=== PATIENT | female | born 1995 | race Caucasian/White ===

== ENCOUNTER 2020-02-01 08:46 | Emergency (ER) | payer OTHER, SELFPAY ==
--- NOTE | 2020-02-01 08:56 | ED_ITS ---
HPI - Nausea/Vomiting/Diarrhea General Chief complaint: General Medical Stated complaint: chills,cough,body aches, NO FEVER Time Seen by Provider: 02/01/20 08:55 Source: patient and EMS Mode of arrival: EMS Limitations: no limitations History of Present Illness MD elicited complaint: nausea, vomiting, abdominal pain and other (chills sore throat, body aches) Onset (ago): day(s) (2) Description of vomiting: food contents Associated nausea: Yes Associated abdominal pain: Yes Location of pain: diffuse Radiation: diffuse Pain consistency: constant Severity: moderate Quality: cramping Exacerbating factors: none Relieving factors: none Context: sick contacts Associated symptoms: myalgias, fever/chills, loss of appetite, malaise, nausea/vomiting and weakness Related Data Previous Rx's Medication Instructions Recorded ondansetron 4 mg PO Q8H PRN #20 tab 02/01/20 Allergies Allergy/AdvReac Type Severity Reaction Status Date / Time No Known Allergies Allergy Unverified 11/10/19 16:17 [No Known Allergies*] Review of Systems Review of Systems: Constitutional : No Weight loss, No Fever, pos Chills ENT/Mouth : No sore throat, No Rhinorrhea Eyes: No Swelling, No Redness Cardiovascular : No Chest Pain, No SOB, NoEdema Respiratory : pos Cough, No Sputum, No Wheezing Gastrointestinal : Positive Nausea, Positive Vomiting, no Diarrhea, positive abdominal Pain, No Hematochezia, No Melena Genitourinary : No Dysuria, No Urinary Frequency, No Hematuria, No Urgency Musculoskeletal : No joint pain, pos Myalgias, No Joint Swelling Skin : No Skin Lesions, No rash Neuro : No Weakness, No Numbness, No Dizziness, No Headache Psych : No Anxiety/Panic, No Depression Heme/Lymph: No Bruising, No Lymphadenopathy Endocrine : No Polyuria, No Polydipsia All other systems reviewed and are negative. Gastrointestinal: Gastrointestinal: Reports nausea PMFSH Past Medical History Attestation statement: The following information was validated with the patient. Medical History (Updated 02/01/20 @ 12:00 by Toma Moffett DO) No active medical problems Social History Social History (Updated 02/01/20 @ 09:07 by Toma Moffett DO) Alcohol intake: current Smoking Status: Current every day smoker Smoked in Last 30 Days: No Use of substances other than those prescribed or required for medical reasons: Yes Substance Use Type: Marijuana Substance Use Frequency: Occasionally Advance Directives: No Advance Directives Information Provided: No Physical Exam Vital Signs: Vital Signs: Last Vital Signs Temp 97.7 F 02/01/20 09:08 Pulse 75 02/01/20 11:45 Resp 16 02/01/20 09:08 BP 103/66 02/01/20 11:45 Pulse Ox 100 02/01/20 11:45 Body Mass Index 32.0 Appearance: Alert. Oriented X3. No acute distress. Eyes: Pupils equal, round and reactive to light. ENT: Pharynx normal. Neck: Normal inspection. Neck supple. CVS: Normal heart rate and rhythm. Pulses normal. Respiratory: No respiratory distress. Breath sounds normal. Abdomen: Soft and diffuse mild ttp Skin: Skin warm and dry. Normal skin color. Normal skin turgor. Extremities: No lower extremity edema. No calf ttp Neuro: Oriented X 3. No motor deficit. No sensory deficit. Course Course Course Narrative: no hypoxia, no distress, not toxic, can be managed as outpatient tolerating PO MDM - Nausea/Vomiting/Diarrhea MDM Narrative Medical decision making narrative: 24 yo female work at [employer] here with diffuse body aches, abdominal cramping, cough, URI symptoms, chills - concerning for viral syndrome, has no localized pain to suggest GB or appendicitis, at this time will obtain labs, UA, COVID test and provide supportive care, anticipate DC home if workup negative Lab Data Result diagrams: 02/01/20 10:19 02/01/20 10:19 Labs: Lab Results 02/01/20 02/01/20 02/01/20 Range/Units 10:19 10:19 10:19 WBC 7.1 (4.8-10.8) X10*3/uL RBC 4.40 (4.20-5.50) X10*6/uL Hgb 13.6 (12.0-16.0) g/dl Hct 41.5 (37-47) % MCV 94.3 (80-98) fL MCH 30.9 (27.0-33.0) pg MCHC 32.8 (31.0-35.0) g/dl RDW 12.6 (11.0-16.0) % Plt Count 169 (160-400) X10*3/uL MPV 12.3 (9.4-12.3) fL Immature Gran % (Auto) 0.4 (0.0-0.4) % Neut % (Auto) 84.4 H (45-73) % Lymph % (Auto) 11.9 L (20-40) % [place] % (Auto) 2.9 (2-11) % Eos % (Auto) 0.1 (0-4) % Baso % (Auto) 0.3 (0-2) % Lymph # (Auto) 0.9 L (1.2-4.9) X10*3/uL [place] # (Auto) 0.2 (0.1-1.2) X10*3/uL Eos # (Auto) 0.0 (0.0-0.4) X10*3/uL Baso # (Auto) 0.0 (0.0-0.2) X10*3/uL Abs Immat Gran (auto) 0.03 (0.00-0.03) X10*3/uL Absolute Neuts (auto) 6.0 (2.0-8.3) X10*3/uL Absolute Nucleated RBC 0.000 (0.0-0.012) X10*3/uL Nucleated RBC % (auto) 0.0 (0.0-0.2) /100WBC Hold Blue Top SEE NOTE Sodium 139 (135-145) mmol/L Potassium 3.9 (3.3-5.1) mmol/l Chloride 109 H (96-108) mmol/L Carbon Dioxide 22 (22-29) mmol/L Anion Gap 12 (12-20) BUN 10 (9-16) mg/dL Creatinine 0.74 (0.5-1.4) mg/dL Estim Creat Clear Calc 108.0 Estimated GFR > 60 Random Glucose 89 (60-115) mg/dL Calcium 8.3 L (8.4-10.2) mg/dL Magnesium (1.6-2.6) mg/dL Total Bilirubin (0.0-1.0) mg/dL Direct Bilirubin (0.0-0.5) mg/dL AST (5-31) U/L ALT (0-31) U/L Alkaline Phosphatase (39-117) U/L Total Protein (6.5-8.0) g/dL Albumin (3.5-5.0) g/dL Lipase (8-78) U/L Urine Color Urine Appearance Urine pH (5.0-8.0) Ur Specific [place] (1.005-1.025) Urine Protein (NEG-TRACE) MG/DL Urine Glucose (UA) (NEG) MG/DL Urine Ketones (NEG) MG/DL Urine Blood (NEG) Urine Nitrite (NEG) Ur Leukocyte Esterase (NEG) Urine Test (NEGATIVE) Coronavirus (PCR) (Negative) Influenza Type A (PCR) (Negative) Influenza Type B (PCR) (Negative) RSV RNA Qual (PCR) (Negative) 02/01/20 02/01/20 02/01/20 Range/Units 10:19 10:20 12:06 WBC (4.8-10.8) X10*3/uL RBC (4.20-5.50) X10*6/uL Hgb (12.0-16.0) g/dl Hct (37-47) % MCV (80-98) fL MCH (27.0-33.0) pg MCHC (31.0-35.0) g/dl RDW (11.0-16.0) % Plt Count (160-400) X10*3/uL MPV (9.4-12.3) fL Immature Gran % (Auto) (0.0-0.4) % Neut % (Auto) (45-73) % Lymph % (Auto) (20-40) % [place] % (Auto) (2-11) % Eos % (Auto) (0-4) % Baso % (Auto) (0-2) % Lymph # (Auto) (1.2-4.9) X10*3/uL [place] # (Auto) (0.1-1.2) X10*3/uL Eos # (Auto) (0.0-0.4) X10*3/uL Baso # (Auto) (0.0-0.2) X10*3/uL Abs Immat Gran (auto) (0.00-0.03) X10*3/uL Absolute Neuts (auto) (2.0-8.3) X10*3/uL Absolute Nucleated RBC (0.0-0.012) X10*3/uL Nucleated RBC % (auto) (0.0-0.2) /100WBC Hold Blue Top Sodium (135-145) mmol/L Potassium (3.3-5.1) mmol/l Chloride (96-108) mmol/L Carbon Dioxide (22-29) mmol/L Anion Gap (12-20) BUN (9-16) mg/dL Creatinine (0.5-1.4) mg/dL Estim Creat Clear Calc Estimated GFR Random Glucose (60-115) mg/dL Calcium (8.4-10.2) mg/dL Magnesium 1.8 (1.6-2.6) mg/dL Total Bilirubin 0.3 (0.0-1.0) mg/dL Direct Bilirubin 0.2 (0.0-0.5) mg/dL AST 18 (5-31) U/L ALT 17 (0-31) U/L Alkaline Phosphatase 57 (39-117) U/L Total Protein 6.8 (6.5-8.0) g/dL Albumin 4.4 (3.5-5.0) g/dL Lipase 9 (8-78) U/L Urine Color YELLOW Urine Appearance CLEAR Urine pH 8.0 (5.0-8.0) Ur Specific [place] 1.020 (1.005-1.025) Urine Protein NEG (NEG-TRACE) MG/DL Urine Glucose (UA) NEG (NEG) MG/DL Urine Ketones 15 (NEG) MG/DL Urine Blood NEG (NEG) Urine Nitrite NEG (NEG) Ur Leukocyte Esterase NEG (NEG) Urine Test NEGATIVE (NEGATIVE) Coronavirus (PCR) NEGATIVE (Negative) Influenza Type A (PCR) NEGATIVE (Negative) Influenza Type B (PCR) NEGATIVE (Negative) RSV RNA Qual (PCR) NEGATIVE (Negative) Discharge Plan Discharge Clinical Impression: Acute viral syndrome Vomiting Qualifiers: Vomiting type: unspecified Vomiting Intractability: non-intractable Nausea presence: with nausea Qualified Code(s): R11.2 - Nausea with vomiting, unspecified Patient Disposition: Home, Self-Care Instructions: Acute Nausea and Vomiting (ED), Viral Syndrome (ED) Additional Instructions: return to ED for any worsening symptoms or concerns your COVID test was negative Prescriptions: New ondansetron 4 mg tablet,disintegrating 4 mg PO Q8H PRN (Reason: nausea and vomiting) Qty: 20 RF: 0 Referrals: Physician,Unknown [Primary Care Provider] - 2 days (PCP if not better) Stand Alone Forms: Work/School Release
[2020-02-01 09:08] VITALS: BP 108/76; BP 115/76; PULSE 80; PULSE 81; RESP 16; TEMP 36.5; O2SAT 100; BMI 32.0
[2020-02-01] MEDS: 0.9 % Sodium Chloride 1,000 ML 999 ML IVCONT (09:25)
[2020-02-01] MEDS: Ketorolac Tromethamine 30 MG/ML VIAL IVPUSH (09:25)
[2020-02-01 10:32] LABS: Basophils Percent Auto 0.3 % (0-2); Eosinophils Percent Auto 0.1 % (0-4); Hematocrit 41.5 % (37-47); Hemoglobin 13.6 g/dl (12.0-16.0); Imm Gran Abs Auto 0.03 X10*3/uL (0.00-0.03); Imm Gran Pct Auto 0.4 % (0.0-0.4); Lymphocytes Absolute Auto 0.9 X10*3/uL (1.2-4.9); Lymphocytes Percent Auto 11.9 % (20-40); MANUAL DIFF FLAG NO; Mean Corpuscular HGB Conc 32.8 g/dl (31.0-35.0); Mean Corpuscular Hemoglobin 30.9 pg (27.0-33.0); Mean Corpuscular Volume 94.3 fL (80-98); Mean Platelet Volume 12.3 fL (9.4-12.3); Monocytes Absolute Auto 0.2 X10*3/uL (0.1-1.2); Monocytes Percent Auto 2.9 % (2-11); Neutrophils Percent Auto 84.4 % (45-73); Platelet Count 169 X10*3/uL (160-400); Red Cell Distribution Width 12.6 % (11.0-16.0); White Blood Count 7.1 X10*3/uL (4.8-10.8)
[2020-02-01 11:02] LABS: Anion Gap 12 (12-20); Blood Urea Nitrogen 10 mg/dL (9-16); Calcium 8.3 mg/dL (8.4-10.2); Carbon Dioxide 22 mmol/L (22-29); Chloride 109 mmol/L (96-108); Estimated Glomerular Filt Rate > 60; Glucose Random 89 mg/dL (60-115); Potassium 3.9 mmol/l (3.3-5.1); Sodium 139 mmol/L (135-145)
[2020-02-01 11:13] LABS: Alanine Aminotransferase 17 U/L (0-31); Albumin Level 4.4 g/dL (3.5-5.0); Alkaline Phosphatase 57 U/L (39-117); Aspartate Amino Transferase 18 U/L (5-31); Lipase 9 U/L (8-78); Magnesium 1.8 mg/dL (1.6-2.6); Total Protein 6.8 g/dL (6.5-8.0)
[2020-02-01 11:23] LABS: Bilirubin Direct 0.2 mg/dL (0.0-0.5); Bilirubin Total 0.3 mg/dL (0.0-1.0)
[2020-02-01 11:43] LABS: Influenza A PCR NEGATIVE (Negative); Influenza B PCR NEGATIVE (Negative); Resp Syncy Virus RNA Qual PCR NEGATIVE (Negative); SARS COV2 PCR INHOUSE NEGATIVE (Negative)
[2020-02-01 11:45] VITALS: BP 103/66; PULSE 75; O2SAT 100
--- NOTE | 2020-02-01 12:08 | PC.NURSE ---
patient a&ox3, urine obtained, vitals stable, pt c/o 8/10 body aches, will continue to monitor.
[2020-02-01 12:27] LABS: Glucose Urine UA NEG (NEG); Leukocyte Esterase Urine NEG (NEG); Nitrite Urine NEG (NEG); Urine Blood NEG (NEG); Urine Ketones 15 MG/DL (NEG); Urine Protein NEG (NEG-TRACE)
[2020-02-01 12:29] LABS: UPreg QC Valid YES; Urine Pregnancy NEGATIVE (NEGATIVE)
[2020-02-01 12:30] LABS: Appearance Urine CLEAR; Color Urine YELLOW
== END 2020-02-01 12:41 | disposition home or self-care (01) ==
PROVIDERS: Emergency Provider Emergency Medicine
DX: B34.9 Viral infection, unspecified (principal); Z20.828 Contact with and (suspected) exposure to other viral communicable diseases; R11.2 Nausea with vomiting, unspecified; F17.200 Nicotine dependence, unspecified, uncomplicated
CPT/HCPCS: 0241U; 36415; 80048; 80076; 81003; 81025; 83690; 83735; 85025; 96361; 96374; 99284; J1885

== ENCOUNTER 2020-03-18 12:17 | Emergency (ER) | payer OTHER, SELFPAY ==
[2020-03-18 12:51] VITALS: BP 118/77; PULSE 73; RESP 16; TEMP 36.6; O2SAT 97; BMI 28.9
--- NOTE | 2020-03-18 14:38 | ED_ITS ---
HPI - Abdominal Pain General Chief Complaint: Abdominal Pain Stated Complaint: lower abd pain Time Seen by Provider: 03/18/20 14:30 Source: patient Mode of arrival: ambulatory Limitations: no limitations History of Present Illness HPI narrative: 25 yo female previously healthy here with right flank pain, nausea/vomiting, chills, dysuria since last night. No diarrhea, vaginal discharge. No fevers. On menses now. Related Data Previous Rx's Medication Instructions Recorded ondansetron 4 mg PO Q8H PRN #20 tab 02/01/20 ibuprofen 600 mg PO Q8H PRN #20 tab 03/18/20 oxycodone 5 mg PO Q8H PRN #10 tab 03/18/20 Allergies Allergy/AdvReac Type Severity Reaction Status Date / Time No Known Allergies Allergy Unverified 11/10/19 16:17 [No Known Allergies*] Review of Systems Review of Systems Yes all other systems are reviewed and are negative Constitutional: Reports no additional constitutional complaints, Denies body ache(s), Reports chills, Denies fever(s), Denies headache(s) and Denies weakness Eyes: Reports no additional eye complaints and Denies change in vision Reports system reviewed and no additional complaints, except as documented, D enies dizziness, Denies headache(s), Denies nasal congestion, Denies nasal discharge and Denies neck pain Cardiovascular: Reports no additional cardiovascular complaints, Denies chest pain, Denies leg edema and Denies dyspnea Respiratory: Reports no additional respiratory complaints, Denies cough and Denies dyspnea Gastrointestinal: Reports no additional gastrointestinal complaints, Denies abdominal pain, Denies diarrhea, Reports nausea and Reports vomiting Genitourinary: Reports no additional female genitourinary complaints, Reports dysuria and Denies urinary incontinence Musculoskeletal: Reports no additional musculoskeletal complaints, Reports back pain, Denies arthralgias, Denies joint swelling, Denies neck pain, Denies numbness and Denies tingling Skin/Breast: Reports system reviewed and no additional complaints, except as docu and Denies rash Reports system reviewed and no additional complaints, except as documented, Denies Abnormal speech present, Denies dizziness, Denies headache(s), Denies numbness, Denies tingling and Denies weakness Physical Exam Vital Signs: Vital Signs: Last Vital Signs Temp 98.1 F 03/18/20 18:59 Pulse 65 03/18/20 18:59 Resp 14 03/18/20 18:59 BP 100/60 03/18/20 18:59 Pulse Ox 99 03/18/20 18:59 Body Mass Index 28.9 Const: General: cooperative, healthy appearing, comfortable and no acute distress Orientation/consciousness: patient oriented x3 Limitations: no limitations HENMT: Head: Yes normal to inspection Ears: hearing grossly normal bilaterally General nose exam: Normal external nose present Face and sinus: Yes normal facial exam Mouth: Normal oral and palatal mucosa present Throat: Yes posterior oropharynx normal Eyes: General: appearance normal, both eyes and all related structures Pupils: Equal, round and reactive pupils present Neck: Neck: Yes normal visual inspection Chest: Chest palpation & inspection: normal inspection of the chest Resp: Effort & Inspection: normal respiratory effort Auscultation: clear to auscultation bilaterally Cardio: Rate: regular rate Rhythm: regular rhythm Peripheral pulses: Peripheral pulses 2+ throughout GI: Inspection: Yes normal to inspection Palpation (GI): Soft to palpation and nontender Auscultation: normal bowel sounds Back/Spine/Pelvis: Thoracic/Lumbar Spine: thoracic and lumbar spine normal to inspection Skin: General skin exam: no rashes or lesions noted Neuro: General: patient oriented x3, no focal motor deficits and normal sensation to monofilament Cranial nerves: Yes Equal, round and reactive pupils present Cognition (Neuro): normal cognition Speech: No Abnormal speech present Gait exam (Neuro): Normal gait present Motor exam (neuro): 5/5 motor strength present throughout Extrem: General: Yes normal to inspection Course Course Course Narrative: 25 yo female here with right flank pain, chills, nausea, vomiting, dysuria. UA shows 3+ blood. Will need Ct A/P to r/o renal colic. Will give PIV, NSB, antiemetic and analgesia and re-assess. 2044-CT A/P shows 3.9 cm left adnexal soft tissue focus. This is nonspecific, though may correspond to an ovarian cyst. Consider correlation with pelvic ultrasound for further tissue characterization. Likely ovarian cyst. Reviewed findings with the patient. Not likely contributing to patient's symptoms as she has no pain on this side. She can follow-up with OB and I do not think that she needs a pelvic US today. Patient is feeling improved after toradol and is eating a tuna sandwich in the room. Some of her discomfort may be menses related. Also consider urethritis secondary to STD infection or vaginal infections such as BV and yeast. No need for pelvic exam with improved symptoms. Patient self swabbed and samples sent to the lab. She declined treatment at this time as she has very little concern for STD infection. She is aware she may need to return for treatment. Reviewed worrisome signs/symptoms with patient and when return to ED. Comfortable with discharge home. MDM - Abdominal Pain MDM Narrative Medical decision making narrative: appy, pyelo, uti, renal colic Medical Records Attestation: I reviewed the patient's medical records. Lab Data Attestation: I reviewed the patient's lab results. Result diagrams: 03/18/20 16:04 03/18/20 16:04 Labs: Lab Results 03/18/20 03/18/20 03/18/20 Range/Units 16:04 16:04 16:04 WBC 7.2 (4.8-10.8) X10*3/uL RBC 4.02 L (4.20-5.50) X10*6/uL Hgb 12.3 (12.0-16.0) g/dl Hct 38.0 (37-47) % MCV 94.5 (80-98) fL MCH 30.6 (27.0-33.0) pg MCHC 32.4 (31.0-35.0) g/dl RDW 13.2 (11.0-16.0) % Plt Count 153 L (160-400) X10*3/uL MPV 12.5 H (9.4-12.3) fL Immature Gran % (Auto) 0.1 (0.0-0.4) % Neut % (Auto) 78.6 H (45-73) % Lymph % (Auto) 15.3 L (20-40) % [place] % (Auto) 5.3 (2-11) % Eos % (Auto) 0.3 (0-4) % Baso % (Auto) 0.4 (0-2) % Lymph # (Auto) 1.1 L (1.2-4.9) X10*3/uL [place] # (Auto) 0.4 (0.1-1.2) X10*3/uL Eos # (Auto) 0.0 (0.0-0.4) X10*3/uL Baso # (Auto) 0.0 (0.0-0.2) X10*3/uL Abs Immat Gran (auto) 0.01 (0.00-0.03) X10*3/uL Absolute Neuts (auto) 5.7 (2.0-8.3) X10*3/uL Absolute Nucleated RBC 0.000 (0.0-0.012) X10*3/uL Nucleated RBC % (auto) 0.0 (0.0-0.2) /100WBC Hold Blue Top SEE NOTE Sodium 141 (135-145) mmol/L Potassium 3.7 (3.3-5.1) mmol/l Chloride 110 H (96-108) mmol/L Carbon Dioxide 22 (22-29) mmol/L Anion Gap 13 (12-20) BUN 11 (9-16) mg/dL Creatinine 0.68 (0.5-1.4) mg/dL Estim Creat Clear Calc 110.7 Estimated GFR > 60 Random Glucose 79 (60-115) mg/dL Calcium 8.3 L (8.4-10.2) mg/dL Total Bilirubin 0.5 (0.0-1.0) mg/dL Direct Bilirubin 0.2 (0.0-0.5) mg/dL AST 18 (5-31) U/L ALT 16 (0-31) U/L Alkaline Phosphatase 58 (39-117) U/L Total Protein 6.4 L (6.5-8.0) g/dL Albumin 4.2 (3.5-5.0) g/dL Urine Color Urine Appearance Urine pH (5.0-8.0) Ur Specific [place] (1.005-1.025) Urine Protein (NEG-TRACE) MG/DL Urine Glucose (UA) (NEG) MG/DL Urine Ketones (NEG) MG/DL Urine Blood (NEG) Urine Nitrite (NEG) Ur Leukocyte Esterase (NEG) Urine RBC (0) /HPF Urine WBC (0-4) /HPF Ur Squamous Epith Cells /LPF Urine Bacteria /LPF Urine Mucus /LPF Urine Test (NEGATIVE) 03/18/20 Range/Units 16:41 WBC (4.8-10.8) X10*3/uL RBC (4.20-5.50) X10*6/uL Hgb (12.0-16.0) g/dl Hct (37-47) % MCV (80-98) fL MCH (27.0-33.0) pg MCHC (31.0-35.0) g/dl RDW (11.0-16.0) % Plt Count (160-400) X10*3/uL MPV (9.4-12.3) fL Immature Gran % (Auto) (0.0-0.4) % Neut % (Auto) (45-73) % Lymph % (Auto) (20-40) % [place] % (Auto) (2-11) % Eos % (Auto) (0-4) % Baso % (Auto) (0-2) % Lymph # (Auto) (1.2-4.9) X10*3/uL [place] # (Auto) (0.1-1.2) X10*3/uL Eos # (Auto) (0.0-0.4) X10*3/uL Baso # (Auto) (0.0-0.2) X10*3/uL Abs Immat Gran (auto) (0.00-0.03) X10*3/uL Absolute Neuts (auto) (2.0-8.3) X10*3/uL Absolute Nucleated RBC (0.0-0.012) X10*3/uL Nucleated RBC % (auto) (0.0-0.2) /100WBC Hold Blue Top Sodium (135-145) mmol/L Potassium (3.3-5.1) mmol/l Chloride (96-108) mmol/L Carbon Dioxide (22-29) mmol/L Anion Gap (12-20) BUN (9-16) mg/dL Creatinine (0.5-1.4) mg/dL Estim Creat Clear Calc Estimated GFR Random Glucose (60-115) mg/dL Calcium (8.4-10.2) mg/dL Total Bilirubin (0.0-1.0) mg/dL Direct Bilirubin (0.0-0.5) mg/dL AST (5-31) U/L ALT (0-31) U/L Alkaline Phosphatase (39-117) U/L Total Protein (6.5-8.0) g/dL Albumin (3.5-5.0) g/dL Urine Color YELLOW Urine Appearance CLEAR Urine pH 7.0 (5.0-8.0) Ur Specific [place] 1.020 (1.005-1.025) Urine Protein NEG (NEG-TRACE) MG/DL Urine Glucose (UA) NEG (NEG) MG/DL Urine Ketones 15 (NEG) MG/DL Urine Blood 3+ H (NEG) Urine Nitrite NEG (NEG) Ur Leukocyte Esterase NEG (NEG) Urine RBC 10-14 H (0) /HPF Urine WBC 0-2 (0-4) /HPF Ur Squamous Epith Cells TRACE /LPF Urine Bacteria NONE /LPF Urine Mucus TRACE /LPF Urine Test NEGATIVE (NEGATIVE) Imaging Data CT scan - abdomen: Attestation: I personally reviewed and interpreted this imaging study as follows: Radiologist's impression: EXAMINATION: CT ABDOMEN AND PELVIS WITHOUT CONTRAST CLINICAL INFORMATION: Flank pain, hematuria. COMPARISON: July 14, 2018. TECHNIQUE: Contiguous axial thin section helical images of the abdomen and pelvis were performed without oral or IV contrast. The data set was reformatted in the coronal and sagittal planes and reviewed on an independent workstation. DLP: 537 mGy-cm. FINDINGS: The visualized lung bases are clear. The visualized portions of the heart are unremarkable. The liver is of normal size and attenuation without focal lesions nor intrahepatic biliary ductal dilation. A normal gallbladder is identified. There is no wall thickening or discernible pericholecystic fluid. The spleen, pancreas, adrenal glands are unremarkable. Both kidneys are of normal size and attenuation without hydronephrosis or nephrolithiasis. There is no abdominal free fluid. There is neither mesenteric nor retroperitoneal lymphadenopathy. Normal unopacified loops of small and large bowel are identified. There is trace likely physiologic pelvic free fluid. There is an approximately 3.9 cm soft tissue focus within the left adnexa. The urinary bladder is unremarkable. There is neither pelvic nor inguinal lymphadenopathy. Bone windows: Neither sclerotic nor lytic bone lesions are identified. CT/CT abdomen pelvis wo con IMPRESSION: Neither hydronephrosis nor nephrolithiasis. No evidence for acute abdominal or pelvic inflammatory or infectious processes. 3.9 cm left adnexal soft tissue focus. This is nonspecific, though may correspond to an ovarian cyst. Consider correlation with pelvic ultrasound for further tissue characterization. Automated exposure control (Care Dose) Adjustment of the mA and/or kv according to patient size (this includes techniques or standardized protocols for targeted exams where dose is matched to indication / reason for exam; i.e. extremities or head). Discharge Plan Discharge Clinical Impression: Ovarian cyst, Dysmenorrhea Patient Disposition: Home, Self-Care Instructions: Dysmenorrhea (ED), Ovarian Cyst (ED) Additional Instructions: Your CT scan shows a soft tissue area around your left ovary which is likely an ovarian cyst. You can see your scientific recruiter and they can evaluate this further with an ultrasound if you continue to have pain. It may also be contributing to your discomfort associated with your menses. We have sent testing for STDs as well as frequent vaginal infections that women can get. These results will come back tomorrow and we will call you if they are positive. Apply heat to the abdomen, rest Prescriptions: New oxycodone 5 mg tablet 5 mg PO Q8H PRN (Reason: pain) Qty: 10 RF: 0 ibuprofen 600 mg tablet 600 mg PO Q8H PRN (Reason: pain) Qty: 20 RF: 0 No Action ondansetron 4 mg tablet,disintegrating 4 mg PO Q8H PRN (Reason: nausea and vomiting) Qty: 20 RF: 0 Referrals: Physician,Unknown [Primary Care Provider] - 2 days PMFSH Past Medical History Attestation statement: The following information was validated with the patient. Source: old records reviewed and nursing notes reviewed Medical History No active medical problems Social History Social History Alcohol intake: never Smoking Status: Current every day smoker Smoked in Last 30 Days: No Use of substances other than those prescribed or required for medical reasons: No Substance Use Type: Marijuana Advance Directives: No Advance Directives Information Provided: No
[2020-03-18] MEDS: Ketorolac Tromethamine 30 MG/ML VIAL IVPUSH (15:20)
[2020-03-18] MEDS: 0.9 % Sodium Chloride 1,000 ML 999 ML IV (15:20)
[2020-03-18] MEDS: ondansetron HCL 4 MG/2 ML VIAL IVPUSH (15:20)
[2020-03-18 16:08] LABS: MANUAL DIFF FLAG NO
[2020-03-18 16:13] LABS: Basophils Percent Auto 0.4 % (0-2); Eosinophils Percent Auto 0.3 % (0-4); Hemoglobin 12.3 g/dl (12.0-16.0); Imm Gran Abs Auto 0.01 X10*3/uL (0.00-0.03); Imm Gran Pct Auto 0.1 % (0.0-0.4); Lymphocytes Absolute Auto 1.1 X10*3/uL (1.2-4.9); Lymphocytes Percent Auto 15.3 % (20-40); Mean Corpuscular HGB Conc 32.4 g/dl (31.0-35.0); Mean Corpuscular Hemoglobin 30.6 pg (27.0-33.0); Mean Corpuscular Volume 94.5 fL (80-98); Mean Platelet Volume 12.5 fL (9.4-12.3); Monocytes Absolute Auto 0.4 X10*3/uL (0.1-1.2); Monocytes Percent Auto 5.3 % (2-11); Neutrophils Absolute Auto 5.7 X10*3/uL (2.0-8.3); Neutrophils Percent Auto 78.6 % (45-73); Platelet Count 153 X10*3/uL (160-400); Red Blood Count 4.02 X10*6/uL (4.20-5.50); Red Cell Distribution Width 13.2 % (11.0-16.0); White Blood Count 7.2 X10*3/uL (4.8-10.8)
[2020-03-18 16:48] LABS: Alanine Aminotransferase 16 U/L (0-31); Albumin Level 4.2 g/dL (3.5-5.0); Alkaline Phosphatase 58 U/L (39-117); Anion Gap 13 (12-20); Aspartate Amino Transferase 18 U/L (5-31); Bilirubin Direct 0.2 mg/dL (0.0-0.5); Bilirubin Total 0.5 mg/dL (0.0-1.0); Blood Urea Nitrogen 11 mg/dL (9-16); Calcium 8.3 mg/dL (8.4-10.2); Carbon Dioxide 22 mmol/L (22-29); Chloride 110 mmol/L (96-108); Creatinine Clr Calc Pharmacy 110.7; Estimated Glomerular Filt Rate > 60; Glucose Random 79 mg/dL (60-115); Potassium 3.7 mmol/l (3.3-5.1); Sodium 141 mmol/L (135-145); Total Protein 6.4 g/dL (6.5-8.0)
[2020-03-18 17:03] LABS: Glucose Urine UA NEG (NEG); Leukocyte Esterase Urine NEG (NEG); Nitrite Urine NEG (NEG); Urine Blood 3+ (NEG); Urine Ketones 15 MG/DL (NEG); Urine Protein NEG (NEG-TRACE)
[2020-03-18 17:05] LABS: Appearance Urine CLEAR; Color Urine YELLOW
[2020-03-18 17:18] LABS: Mucus Urine TRACE /LPF; Squamous Epithelial Cell Urine TRACE /LPF; WBC Urine 0-2 /HPF (0-4)
--- NOTE | 2020-03-18 17:47 | CT_ITS ---
EXAMINATION: CT ABDOMEN AND PELVIS WITHOUT CONTRAST CLINICAL INFORMATION: Flank pain, hematuria. COMPARISON: July 14, 2018. TECHNIQUE: Contiguous axial thin section helical images of the abdomen and pelvis were performed without oral or IV contrast. The data set was reformatted in the coronal and sagittal planes and reviewed on an independent workstation. DLP: 537 mGy-cm. FINDINGS: The visualized lung bases are clear. The visualized portions of the heart are unremarkable. The liver is of normal size and attenuation without focal lesions nor intrahepatic biliary ductal dilation. A normal gallbladder is identified. There is no wall thickening or discernible pericholecystic fluid. The spleen, pancreas, adrenal glands are unremarkable. Both kidneys are of normal size and attenuation without hydronephrosis or nephrolithiasis. There is no abdominal free fluid. There is neither mesenteric nor retroperitoneal lymphadenopathy. Normal unopacified loops of small and large bowel are identified. There is trace likely physiologic pelvic free fluid. There is an approximately 3.9 cm soft tissue focus within the left adnexa. The urinary bladder is unremarkable. There is neither pelvic nor inguinal lymphadenopathy. Bone windows: Neither sclerotic nor lytic bone lesions are identified. CT/CT abdomen pelvis wo con IMPRESSION: Neither hydronephrosis nor nephrolithiasis. No evidence for acute abdominal or pelvic inflammatory or infectious processes. 3.9 cm left adnexal soft tissue focus. This is nonspecific, though may correspond to an ovarian cyst. Consider correlation with pelvic ultrasound for further tissue characterization. Automated exposure control (Care Dose) Adjustment of the mA and/or kv according to patient size (this includes techniques or standardized protocols for targeted exams where dose is matched to indication / reason for exam; i.e. extremities or head).
[2020-03-18 18:43] LABS: UPreg QC Valid YES; Urine Pregnancy NEGATIVE (NEGATIVE)
[2020-03-18 18:59] VITALS: BP 100/60; PULSE 65; RESP 14; TEMP 36.7; O2SAT 99
--- NOTE | 2020-03-18 20:21 | PC.NURSE ---
Per INTERNATIONAL COORDINATOR, plan for urine sample, BV swab and food/drink.
[2020-03-18 21:06] VITALS: BP 99/57; PULSE 74; RESP 16; O2SAT 100
--- NOTE | 2020-03-18 21:11 | PC.NURSE ---
Pt reports some relief of pain, states pain decreased to a 7/10. VSS, IV removed, pt provided with DC paperwork.
[2020-03-19 09:07] LABS: CT PCR NOT DETECTED (Not Detect.); NG PCR NOT DETECTED (Not Detect.)
== END 2020-03-18 21:12 | disposition home or self-care (01) ==
PROVIDERS: Nurse Practitioner Family; Emergency Provider Internal Medicine
DX: N83.202 Unspecified ovarian cyst, left side (principal); N94.4 Primary dysmenorrhea; F17.200 Nicotine dependence, unspecified, uncomplicated; Z71.6 Tobacco abuse counseling; F12.90 Cannabis use, unspecified, uncomplicated; Z79.899 Other long term (current) drug therapy
CPT/HCPCS: 36415; 74176; 80048; 80076; 81001; 81003; 81025; 85025; 87480; 87491; 87510; 87591; 87660; 96361; 96374; 96375; 99284; J1885; J2405

== ENCOUNTER 2020-09-29 10:10 | Emergency (ER) | payer OTHER, SELFPAY ==
--- NOTE | ~2020-09-29 | CT_ITS ---
EXAMINATION: CT ABDOMEN AND PELVIS WITH CONTRAST CLINICAL INFORMATION: Lower abdominal pain COMPARISON: 03/18/2020 TECHNIQUE: Multidetector volumetric images were obtained from the superior aspect of the liver through the pubic symphysis following administration 85 mL of Omnipaque 350 intravenous contrast. Sagittal and coronal reformatted images were obtained on the technologist's workstation. Oral contrast: No This CT examination was performed using dose optimization techniques as appropriate, variously including the following: *Automated exposure control *Adjustment of mA and/or kV according to patient size (this includes techniques or standardized protocols for targeted exams where dose is matched to indication/reason for exam; i.e. extremities or head) *Use of iterative reconstruction technique DLP: 614 mGy-cm FINDINGS: LUNG BASES: The visualized lung bases are unremarkable. LIVER, GALLBLADDER, AND BILIARY TREE: The liver is normal in size, shape, and attenuation. No focal hepatic lesion or biliary ductal dilatation is present. The gallbladder is unremarkable with no evidence of radiopaque gallstones, gallbladder wall thickening, or obvious pericholecystic inflammatory changes. PANCREAS: Unremarkable. SPLEEN: Unremarkable. ADRENAL GLANDS: Unremarkable. KIDNEYS AND URETERS: The kidneys are normal in size, shape, and attenuation. No hydronephrosis, hydroureter, or calculi seen. No perinephric stranding. BLADDER: Unremarkable. GASTROINTESTINAL TRACT: The small and large bowel are unremarkable. The appendix is unremarkable. ABDOMINAL WALL: No significant hernia is appreciated. LYMPH NODES: Normal. VASCULAR: Unremarkable. PELVIC VISCERA: The pelvis there is a cystic structure left adnexa. I suspect that this is ovarian. It is intimately associated with the adjacent large bowel therefore cannot completely exclude large bowel origin. Measures 3.5 x 3.1 cm. There is also free fluid. OSSEOUS STRUCTURES: Unremarkable. CT/CT abdomen pelvis w con IMPRESSION: Thick-walled cystic structure in the left adnexa. I suspect this is ovarian or tubal in etiology. Underlying tubal process cannot be excluded. Abscess cannot be excluded It is intimately associated with the adjacent sigmoid therefore sigmoid etiology cannot be completely excluded Mild free fluid in the pelvis.
--- NOTE | ~2020-09-29 | US_ITS ---
EXAMINATION:US pelvic and transvaginal CLINICAL INFORMATION: Reason for Exam pt c suprapubic abd pain abnormal CT of abd/pelvis ? Abscess COMPARISON: No priors available. LMP: 2 weeks ago FINDINGS: UTERUS: The uterus is anteverted. Size: 7.5 x 3 x 4.5 cm. Uterine mass: There is no uterine mass. Cervix: Grossly unremarkable. Endometrium: No ultrasound evidence of endometrial lesion. endometrial thickness measures 0.4 cm ADNEXA: Normal Right ovary: Normal in size. Left ovary: Normal in size. Cystic structure likely a follicle in the left ovary 3.2 x 2.6 cm. Probably a complex and/or hemorrhagic cyst. Doppler exam: Normal Doppler flow identified in both ovaries. FREE FLUID: Trace amount of free fluid. OTHER FINDINGS: None US/US pelvic and transvaginal IMPRESSION: Complex probably hemorrhagic cyst left ovary 3.2 cm. Ultrasound otherwise normal. In women who undergo transvaginal ultrasound (TVUS) imaging of adnexal masses, benign ovarian and other adnexal cysts are commonly detected, leading to follow-up sonographic evaluation and, often, patient anxiety. In 2009 the Society of Radiologists in Ultras[employer] convened a panel of gynecologists, radiologists, and pathologists to develop a consensus statement encompassing characteristic imaging findings for various adnexal cysts as well as follow-up recommendations. Highlights of the statement are as follows: Simple cysts (reproductive age) * Follicles <3 cm in diameter are considered normal. * Cysts <5 cm: follow-up not required. * Cysts >5 to <7 cm: annual follow-up recommended. Simple cysts (postmenopausal) * Cysts <1 cm are considered clinically unimportant. * Simple cysts of any size are highly likely to be benign, but annual sonographic follow-up of cysts >1 cm is reasonable. Simple cysts >7 cm (any age) * Further imaging (e.g., magnetic resonance imaging) or surgical evaluation should be considered. Thin-walled cysts with single thin septation or focal calcification in roberto * Follow-up similar to that for simple cysts based on size and menopausal status. Hemorrhagic cysts (reproductive age) * Cysts <5 cm: No follow-up needed. * Cysts >5 cm: Follow-up in 6 to 12 weeks to ensure resolution. Hemorrhagic cysts (early postmenopause) * Any size: Follow-up in 6 to 12 weeks to ensure resolution. Hemorrhagic cysts (later postmenopausal years) * Any size: Consider surgical evaluation. Endometriomae (any age) * Follow-up in 6 to 12 weeks; if not surgically resected at that time, follow annually. Dermoids (any age) * If not surgically resected, follow annually to ensure stability. Hydrosalpinxes or peritoneal cysts (any age) * Individualized follow-up as clinically indicated. Cysts with characteristics suspicious for malignancy (any age) * If thick (>3 mm) irregular septations or nodule with Doppler-detected blood flow, consider surgical evaluation.
[2020-09-29 10:18] VITALS: BP 102/51; PULSE 80; RESP 16; TEMP 36.5; O2SAT 96; BMI 30.8
[2020-09-29 11:00] VITALS: RESP 16
[2020-09-29] MEDS: 0.9 % Sodium Chloride 1,000 ML 999 ML IVCONT (11:00)
[2020-09-29] MEDS: Morphine Sulfate 4 MG/ML CARTRIDGE IVPUSH ×2 (11:00→14:24)
[2020-09-29] MEDS: Ketorolac Tromethamine 15 MG/ML VIAL 30 MG IVPUSH (11:00)
--- NOTE | 2020-09-29 11:05 | ED_ITS ---
HPI - Abdominal Pain General Chief Complaint: Abdominal Pain Stated Complaint: abd pain Time Seen by Provider: 09/29/20 10:34 Source: patient and EMS Mode of arrival: EMS Limitations: no limitations History of Present Illness HPI narrative: 25-year-old female with no significant past medical history presenting to the ED via EMS with complaints of lower abdominal pain radiating to her lower back for the past 3 days worse today with associated dysuria. Reports that she has been unable to urinate since last night. Reports associated chills and nausea. Reports that her last menstrual period was approximately 1 week ago. Denies any measured fevers, dizziness, headaches, vomiting, chest pain or shortness of breath, hematuria, abnormal vaginal discharge, diarrhea, constipation, black or bloody stools, recent travel or sick contacts or any thoughts of STDs or any other symptoms complaints or concerns at this time. MD elicited complaint: abdominal pain Pertinent past history: none Onset (ago): day(s) (Three days) Pain Consistency: constant Location: suprapubic Severity: severe Pain scale (0-10): 10 Quality: cramping and aching Radiation: back Exacerbating factors: other (Attempting to urinate) Relieving factors: nothing Associated symptoms: nausea, chills, dysuria and other (Urinary retention) Treatments prior to arrival: other (She was given meds by EMS prior to arrival) Related Data Hx Last Menstrual Period: One week ago Patient : No Previous Rx's Medication Instructions Recorded ondansetron 4 mg disintegrating 4 mg PO Q8H PRN #20 tab 02/01/20 tablet ibuprofen 600 mg tablet 600 mg PO Q8H PRN #20 tab 03/18/20 oxycodone 5 mg tablet 5 mg PO Q8H PRN #10 tab 03/18/20 acetaminophen 500 mg tablet 1,000 mg PO QID PRN #14 tab 09/29/20 (Tylenol Extra Strength) doxycycline monohydrate 100 mg 100 mg PO BID 10 Days #20 cap 09/29/20 capsule fluconazole 150 mg tablet 150 mg PO Q3D #2 tab 09/29/20 (Diflucan) ibuprofen 800 mg tablet 800 mg PO Q8H PRN #14 tab 09/29/20 metronidazole 500 mg tablet 500 mg PO BID 7 Days #14 tab 09/29/20 (Flagyl) ondansetron HCl 4 mg tablet 4 mg PO Q8H PRN #14 tab 09/29/20 (Zofran) oxycodone 5 mg tablet 5 mg PO BID PRN #10 tab 09/29/20 Allergies Allergy/AdvReac Type Severity Reaction Status Date / Time No Known Allergies Allergy Unverified 11/10/19 16:17 [No Known Allergies*] Review of Systems Review of Systems Constitutional : Positive chills, No Weight loss, No Fever, No Night Sweats, No Fatigue, No Malaise ENT/Mouth: No ear pain, No sore throat, No Difficulty swallowing Cardiovascular : No Chest Pain, No SOB, No Dyspnea on Exertion, No Orthopnea, No Edema, No Palpitations Respiratory : No Cough, No Sputum, No Wheezing, No Dyspnea Gastrointestinal : Positive nausea with lower suprapubic abdominal pain, No Vomiting, No Diarrhea, No blood streaked emesis, No coffee-ground emesis, No gross hematemesis, No blood streak stool, No gross hematochezia, No Melena Genitourinary : Positive dysuria with urinary retention, No irregular bleeding, No Urinary Frequency, No Hematuria,No Urinary Incontinence, No Urgency, No Flank Pain Musculoskeletal : No joint pain, No Myalgias, No Joint Swelling Skin : No Skin Lesions, No rash Neuro : No Weakness, No Numbness, No Paresthesias, No Loss of Consciousness, NoDizziness, No Headache Psych : No Social Issues, Heme/Lymph: No Bruising, No Bleeding,No Lymphadenopathy Endocrine : No Polyuria, No Polydipsia, No Temperature Intolerance Yes all other systems are reviewed and are negative Physical Exam Vital Signs: Vital Signs: Last Vital Signs Temp 97.7 F 09/29/20 10:18 Pulse 80 09/29/20 14:24 Resp 16 09/29/20 14:24 BP 123/78 09/29/20 14:24 Pulse Ox 97 09/29/20 14:24 Body Mass Index 30.8 vital signs have been reviewed as normal and appeared to be correct. Blood pressure hypotensive 102/51 Heart rate normal. Respiration rate normal. Temperature normal. Oxygen saturation normal. Appearance: Alert. Oriented X3. Crying throughout exam reporting severe pain in her suprapubic abdominal aspect otherwise no other acute distress. Head: Normal external exam. Normocephalic. Eyes: PERRLA. EOMI. Conjunctiva and sclera normal. Eyelids normal. ENT: Pharynx normal. Uvula midline. Moist mucous membranes. Neck: Normal inspection. Neck supple. FROM. No adenopathy. No meningeal signs. CVS: Normal heart rate and rhythm. Heart sound normal. No murmurs noted. Pulses normal throughout. Respiratory: No respiratory distress. Painless inspiration. Breath sounds normal. No wheezes/rales/rhonchi noted. Chest nontender. No accessory muscle usage noted or decreased air movement noted. Abdomen: Soft and moderate tenderness to palpation to suprapubic abdomen although very tender diffusely as well with guarding. No point tenderness is no yemi. No rigidity. Bowel sounds normal in all 4 quadrants. No distention noted. No organomegaly noted. No visible injury noted. No rebound tenderness. Negative Rovsing sign. Negative obturator's sign. Negative psoas sign. Negative Funk sign. Back: Positive bilateral CVA tenderness is noted. Full range of motion noted. Skin: Skin warm and dry. Normal skin color. Normal skin turgor. No rashes/lesions/lacerations noted. Extremities: Extremities exhibit normal range of motion. Extremities nontender. Neuro: Oriented X 3. No motor deficit. No sensory deficit. Reflexes normal. Normal steady gait. Course Course Course Narrative: 10:45am - 25-year-old female presenting to the ED with complaints of lower abdominal pain radiating to her lower back for the past 3 days worse today with associated dysuria. Reports that she has been unable to urinate since last night. Reports associated chills and nausea. Reports that her last menstrual period was approximately 1 week ago. No thoughts of STDs. No recent travel or sick contacts. - On exam patient is crying due to pain although not in any acute other acute distress. Mildly hypotensive at 102/51 otherwise all other vitals are within normal limits. Patient has tenderness to palpation diffusely worse in the suprapubic/lower abdomen and she has bilateral CVA tenderness. Plan: Labs, UA, UHCG, CT scan abdomen pelvis with IV contrast, bladder scan and straight catheterization per the patient's request due to she has been unable to urinate since last night. Provide a L of IV fluids, 4 mg of Zofran, 30 mg of IV Toradol and 4 mg of morphine and re-evaluate. Reevaluation(s) Reevaluation #1: - CT scan abdomen and pelvis with IV contrast revealed IMPRESSION: Thick-walled cystic structure in the left adnexa. I suspect this is ovarian or tubal in etiology. Underlying tubal process cannot be excluded. Abscess cannot be excluded ? It is intimately associated with the adjacent sigmoid therefore sigmoid etiology cannot be completely excluded ? Mild free fluid in the pelvis. - therefore pelvic/transvaginal ultrasound ordered at this time. Time: 15:03 Reevaluation #2: Pelvic/transvaginal ultrasound revealed FINDINGS: UTERUS: The uterus is anteverted. Size: 7.5 x 3 x 4.5 cm. Uterine mass: There is no uterine mass. Cervix: Grossly unremarkable. Endometrium: No ultrasound evidence of endometrial lesion. endometrial thickness measures 0.4 cm ADNEXA: Normal Right ovary: Normal in size. Left ovary: Normal in size. Cystic structure likely a follicle in the left ovary 3.2 x 2.6 cm. Probably a complex and/or hemorrhagic cyst. Doppler exam: Normal Doppler flow identified in both ovaries. FREE FLUID: Trace amount of free fluid. OTHER FINDINGS: None US/US pelvic and transvaginal IMPRESSION: Complex probably hemorrhagic cyst left ovary 3.2 cm. ? Ultrasound otherwise normal. - Patient reports she is sexually active with females not with men. She denies any thoughts of STDs. Although I explained to the patient that if she is having suprapubic abdominal tenderness that to be thorough we should do a pelvic exam and on pelvic exam with LUCIUS White at bedside. Patient had white cottage cheeselike abnormal discharge and she had moderate cervical motion tenderness therefore I explained to her that I believe she has PID and will treat for gonorrhea/chlamydia/bacterial vaginosis and yeast along with instructions to return if any new or worsening symptoms and to follow up with PCP/OBGYN. Patient understands agrees with this plan. Time: 16:15 MDM - Abdominal Pain Medical Records Attestation: I reviewed the patient's medical records. Lab Data Attestation: I reviewed the patient's lab results. Result diagrams: 09/29/20 11:16 09/29/20 11:16 Labs: Lab Results 09/29/20 09/29/20 09/29/20 Range/Units 11:01 11:16 11:16 WBC 8.6 (4.8-10.8) X10*3/uL RBC 3.86 L (4.20-5.50) X10*6/uL Hgb 12.0 (12.0-16.0) g/dl Hct 36.3 L (37-47) % MCV 94.0 (80-98) fL MCH 31.1 (27.0-33.0) pg MCHC 33.1 (31.0-35.0) g/dl RDW 13.0 (11.0-16.0) % Plt Count 139 L (160-400) X10*3/uL MPV 11.9 (9.4-12.3) fL Immature Gran % (Auto) 0.6 H (0.0-0.4) % Neut % (Auto) 76.2 H (45-73) % Lymph % (Auto) 15.9 L (20-40) % Eagle % (Auto) 6.5 (2-11) % Eos % (Auto) 0.6 (0-4) % Baso % (Auto) 0.2 (0-2) % Lymph # (Auto) 1.4 (1.2-4.9) X10*3/uL [place] # (Auto) 0.6 (0.1-1.2) X10*3/uL Eos # (Auto) 0.1 (0.0-0.4) X10*3/uL Baso # (Auto) 0.0 (0.0-0.2) X10*3/uL Abs Immat Gran (auto) 0.05 H (0.00-0.03) X10*3/uL Absolute Neuts (auto) 6.6 (2.0-8.3) X10*3/uL Absolute Nucleated RBC 0.000 (0.0-0.012) X10*3/uL Nucleated RBC % (auto) 0.0 (0.0-0.2) /100WBC PT 14.3 H (9.9-13.0) SEC INR 1.3 H (0.9-1.1) Sodium (135-145) mmol/L Potassium (3.3-5.1) mmol/L Chloride (96-108) mmol/L Carbon Dioxide (22-29) mmol/L Anion Gap (12-20) BUN (9-16) mg/dL Creatinine (0.5-1.4) mg/dL Estim Creat Clear Calc Estimated GFR Random Glucose (60-115) mg/dL Calcium (8.4-10.2) mg/dL Magnesium (1.6-2.6) mg/dL Total Bilirubin (0.0-1.0) mg/dL AST (5-31) U/L ALT (0-31) U/L Alkaline Phosphatase (39-117) U/L Total Protein (6.5-8.0) g/dL Albumin (3.5-5.0) g/dL Beta HCG, Quant mIU/mL Urine Color YELLOW Urine Appearance HAZY Urine pH 6.0 (5.0-8.0) Ur Specific [place] 1.025 (1.005-1.025) Urine Protein TRACE (NEG-TRACE) MG/DL Urine Glucose (UA) NEG (NEG) MG/DL Urine Ketones NEG (NEG) MG/DL Urine Blood NEG (NEG) Urine Nitrite NEG (NEG) Ur Leukocyte Esterase NEG (NEG) 09/29/20 09/29/20 Range/Units 11:16 11:16 WBC (4.8-10.8) X10*3/uL RBC (4.20-5.50) X10*6/uL Hgb (12.0-16.0) g/dl Hct (37-47) % MCV (80-98) fL MCH (27.0-33.0) pg MCHC (31.0-35.0) g/dl RDW (11.0-16.0) % Plt Count (160-400) X10*3/uL MPV (9.4-12.3) fL Immature Gran % (Auto) (0.0-0.4) % Neut % (Auto) (45-73) % Lymph % (Auto) (20-40) % Eagle % (Auto) (2-11) % Eos % (Auto) (0-4) % Baso % (Auto) (0-2) % Lymph # (Auto) (1.2-4.9) X10*3/uL [place] # (Auto) (0.1-1.2) X10*3/uL Eos # (Auto) (0.0-0.4) X10*3/uL Baso # (Auto) (0.0-0.2) X10*3/uL Abs Immat Gran (auto) (0.00-0.03) X10*3/uL Absolute Neuts (auto) (2.0-8.3) X10*3/uL Absolute Nucleated RBC (0.0-0.012) X10*3/uL Nucleated RBC % (auto) (0.0-0.2) /100WBC PT (9.9-13.0) SEC INR (0.9-1.1) Sodium 138 (135-145) mmol/L Potassium 3.5 (3.3-5.1) mmol/L Chloride 111 H (96-108) mmol/L Carbon Dioxide 19 L (22-29) mmol/L Anion Gap 12 (12-20) BUN 14 (9-16) mg/dL Creatinine 0.73 (0.5-1.4) mg/dL Estim Creat Clear Calc 106.4 Estimated GFR > 60 Random Glucose 100 (60-115) mg/dL Calcium 7.8 L D (8.4-10.2) mg/dL Magnesium 1.8 (1.6-2.6) mg/dL Total Bilirubin 0.7 (0.0-1.0) mg/dL AST 11 (5-31) U/L ALT 9 (0-31) U/L Alkaline Phosphatase 53 (39-117) U/L Total Protein 5.7 L (6.5-8.0) g/dL Albumin 3.5 (3.5-5.0) g/dL Beta HCG, Quant < 2 mIU/mL Urine Color Urine Appearance Urine pH (5.0-8.0) Ur Specific [place] (1.005-1.025) Urine Protein (NEG-TRACE) MG/DL Urine Glucose (UA) (NEG) MG/DL Urine Ketones (NEG) MG/DL Urine Blood (NEG) Urine Nitrite (NEG) Ur Leukocyte Esterase (NEG) Imaging Data Pelvic/transvaginal ultrasound: Attestation: I personally reviewed and interpreted this imaging study as follows: Radiologist's impression: FINDINGS: UTERUS: The uterus is anteverted. Size: 7.5 x 3 x 4.5 cm. Uterine mass: There is no uterine mass. Cervix: Grossly unremarkable. Endometrium: No ultrasound evidence of endometrial lesion. endometrial thickness measures 0.4 cm ADNEXA: Normal Right ovary: Normal in size. Left ovary: Normal in size. Cystic structure likely a follicle in the left ovary 3.2 x 2.6 cm. Probably a complex and/or hemorrhagic cyst. Doppler exam: Normal Doppler flow identified in both ovaries. FREE FLUID: Trace amount of free fluid. OTHER FINDINGS: None US/US pelvic and transvaginal IMPRESSION: Complex probably hemorrhagic cyst left ovary 3.2 cm. ? Ultrasound otherwise normal. ? In women who undergo transvaginal ultrasound (TVUS) imaging of adnexal masses, benign ovarian and other adnexal cysts are commonly detected, leading to follow-up sonographic evaluation and, often, patient anxiety. In 2009 the Society of Radiologists in Ultrasound convened a panel of gynecologists, radiologists, and pathologists to develop a consensus statement encompassing characteristic imaging findings for various adnexal cysts as well as follow-up recommendations. Highlights of the statement are as follows: Simple cysts (reproductive age) *? Follicles <3 cm in diameter are considered normal. *? Cysts <5 cm: follow-up not required. *? Cysts >5 to <7 cm: annual follow-up recommended. Simple cysts (postmenopausal) *? Cysts <1 cm are considered clinically unimportant. *? Simple cysts of any size are highly likely to be benign, but annual sonographic follow-up of cysts >1 cm is reasonable. Simple cysts >7 cm (any age) *? Further imaging (e.g., magnetic resonance imaging) or surgical evaluation should be considered. Thin-walled cysts with single thin septation or focal calcification in roberto *? Follow-up similar to that for simple cysts based on size and menopausal status. Hemorrhagic cysts (reproductive age) *? Cysts <5 cm: No follow-up needed. *? Cysts >5 cm: Follow-up in 6 to 12 weeks to ensure resolution. Hemorrhagic cysts (early postmenopause) *? Any size: Follow-up in 6 to 12 weeks to ensure resolution. Hemorrhagic cysts (later postmenopausal years) *? Any size: Consider surgical evaluation. Endometriomae (any age) *? Follow-up in 6 to 12 weeks; if not surgically resected at that time, follow annually. Dermoids (any age) *? If not surgically resected, follow annually to ensure stability. Hydrosalpinxes or peritoneal cysts (any age) *? Individualized follow-up as clinically indicated. Cysts with characteristics suspicious for malignancy (any age) *? If thick (>3 mm) irregular septations or nodule with Doppler-detected blood flow, consider surgical evaluation. ? CT scan of abdomen and pelvis with IV contrast: Attestation: I personally reviewed and interpreted this imaging study as follows: Radiologist's impression: FINDINGS: LUNG BASES: The visualized lung bases are unremarkable.? LIVER, GALLBLADDER, AND BILIARY TREE: The liver is normal in size, shape, and attenuation. No focal hepatic lesion or biliary ductal dilatation is present. The gallbladder is unremarkable with no evidence of radiopaque gallstones, gallbladder wall thickening, or obvious pericholecystic inflammatory changes.? PANCREAS: Unremarkable.? SPLEEN: Unremarkable.? ADRENAL GLANDS: Unremarkable.? KIDNEYS AND URETERS: The kidneys are normal in size, shape, and attenuation. No hydronephrosis, hydroureter, or calculi seen. No perinephric stranding. ? BLADDER: Unremarkable.? GASTROINTESTINAL TRACT: The small and large bowel are unremarkable. The appendix is unremarkable.? ABDOMINAL WALL: No significant hernia is appreciated.? LYMPH NODES: Normal. VASCULAR: Unremarkable. PELVIC VISCERA: The pelvis there is a cystic structure left adnexa. I suspect that this is ovarian. It is intimately associated with the adjacent large bowel therefore cannot completely exclude large bowel origin. Measures 3.5 x 3.1 cm. There is also free fluid.? OSSEOUS STRUCTURES: Unremarkable.? CT/CT abdomen pelvis w con IMPRESSION: Thick-walled cystic structure in the left adnexa. I suspect this is ovarian or tubal in etiology. Underlying tubal process cannot be excluded. Abscess cannot be excluded ? It is intimately associated with the adjacent sigmoid therefore sigmoid etiology cannot be completely excluded ? Mild free fluid in the pelvis. Critical Care Time Critical Care Time Critical Care Time: Yes Total Critical Care Time: 60 Attestation: I personally attest to this time spent taking care of the patient Discharge Plan Discharge Clinical Impression: Acute pelvic inflammatory disease (PID), Abdominal pain, Hemorrhagic cyst Patient Disposition: Home, Self-Care Instructions: Pelvic Inflammatory Disease (ED), Ovarian Cyst (ED), Abdominal Pain (ED) Additional Instructions: You have pending lab results if any are positive you will be contacted. Prescriptions: New ibuprofen 800 mg tablet 800 mg PO Q8H PRN (Reason: pain) Qty: 14 RF: 0 ondansetron HCl [Zofran] 4 mg tablet 4 mg PO Q8H PRN (Reason: nausea and vomiting) Qty: 14 RF: 0 acetaminophen [Tylenol Extra Strength] 500 mg tablet 1,000 mg PO QID PRN (Reason: fever or pain) Qty: 14 RF: 0 doxycycline monohydrate 100 mg capsule 100 mg PO BID 10 Days Qty: 20 RF: 0 oxycodone 5 mg tablet 5 mg PO BID PRN (Reason: pain) Qty: 10 RF: 0 metronidazole [Flagyl] 500 mg tablet 500 mg PO BID 7 Days Qty: 14 RF: 0 fluconazole [Diflucan] 150 mg tablet 150 mg PO Q3D Qty: 2 RF: 0 No Action ondansetron 4 mg tablet,disintegrating 4 mg PO Q8H PRN (Reason: nausea and vomiting) Qty: 20 RF: 0 oxycodone 5 mg tablet 5 mg PO Q8H PRN (Reason: pain) Qty: 10 RF: 0 ibuprofen 600 mg tablet 600 mg PO Q8H PRN (Reason: pain) Qty: 20 RF: 0 Referrals: Zunilda Ignacio MD [Primary Care Provider] - 2 days Stand Alone Forms: Work/School Release Print Language: Sammarinese [facility] Past Medical History Attestation statement: The following information was validated with the patient. Medical History No active medical problems Hx Last Menstrual Period: One week ago Social History Social History Alcohol intake: never Smoked in Last 30 Days: No Use of substances other than those prescribed or required for medical reasons: No Substance Use Type: Marijuana Advance Directives: No Advance Directives Information Provided: No Patient : No
[2020-09-29 11:10] LABS: Glucose Urine UA NEG (NEG); Leukocyte Esterase Urine NEG (NEG); Nitrite Urine NEG (NEG); Specific Gravity - Urine 1.025 (1.005-1.025); Urine Blood NEG (NEG); Urine Ketones NEG (NEG); Urine Protein TRACE MG/DL (NEG-TRACE)
[2020-09-29 11:11] LABS: Appearance Urine HAZY; Color Urine YELLOW
[2020-09-29 11:20] LABS: MANUAL DIFF FLAG NO
[2020-09-29 11:25] LABS: Basophils Percent Auto 0.2 % (0-2); Eosinophils Absolute Auto 0.1 X10*3/uL (0.0-0.4); Eosinophils Percent Auto 0.6 % (0-4); Hematocrit 36.3 % (37-47); Imm Gran Abs Auto 0.05 X10*3/uL (0.00-0.03); Imm Gran Pct Auto 0.6 % (0.0-0.4); Lymphocytes Absolute Auto 1.4 X10*3/uL (1.2-4.9); Lymphocytes Percent Auto 15.9 % (20-40); Mean Corpuscular HGB Conc 33.1 g/dl (31.0-35.0); Mean Corpuscular Hemoglobin 31.1 pg (27.0-33.0); Mean Platelet Volume 11.9 fL (9.4-12.3); Monocytes Absolute Auto 0.6 X10*3/uL (0.1-1.2); Monocytes Percent Auto 6.5 % (2-11); Neutrophils Absolute Auto 6.6 X10*3/uL (2.0-8.3); Neutrophils Percent Auto 76.2 % (45-73); Platelet Count 139 X10*3/uL (160-400); Red Blood Count 3.86 X10*6/uL (4.20-5.50); White Blood Count 8.6 X10*3/uL (4.8-10.8)
[2020-09-29 11:28] LABS: INTERNATIONAL NORM RATIO 1.3 (0.9-1.1); Prothrombin Time 14.3 SEC (9.9-13.0)
[2020-09-29 11:57] LABS: Magnesium 1.8 mg/dL (1.6-2.6)
[2020-09-29 11:59] LABS: Alanine Aminotransferase 9 U/L (0-31); Albumin Level 3.5 g/dL (3.5-5.0); Alkaline Phosphatase 53 U/L (39-117); Anion Gap 12 (12-20); Aspartate Amino Transferase 11 U/L (5-31); Bilirubin Total 0.7 mg/dL (0.0-1.0); Blood Urea Nitrogen 14 mg/dL (9-16); Calcium 7.8 mg/dL (8.4-10.2); Carbon Dioxide 19 mmol/L (22-29); Chloride 111 mmol/L (96-108); Creatinine Clr Calc Pharmacy 106.4; Estimated Glomerular Filt Rate > 60; Glucose Random 100 mg/dL (60-115); Potassium 3.5 mmol/L (3.3-5.1); Sodium 138 mmol/L (135-145); Total Protein 5.7 g/dL (6.5-8.0)
[2020-09-29 12:05] LABS: HCG Quantitative < 2 mIU/mL
[2020-09-29] MEDS: iohexoL 350 MG/ML 100 ML INFUS..BTL 85 ML IV (13:02)
[2020-09-29 14:24] VITALS: BP 123/78; PULSE 80; RESP 16; O2SAT 97
--- NOTE | 2020-09-29 15:58 | P.CONOB_ITS ---
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 Systems Review of Systems ROS Unobtainable: All systems reviewed & are unremarkable except as noted in HPI and below OB PMFSH Past Medical History Medical History No active medical problems Social History Social History Alcohol intake: never Smoked in Last 30 Days: No Use of substances other than those prescribed or required for medical reasons: No Substance Use Type: Marijuana Advance Directives: No Advance Directives Information Provided: No Patient : No Meds Allergies Allergy/AdvReac Type Severity Reaction Status Date / Time No Known Allergies Allergy Unverified 11/10/19 16:17 [No Known Allergies*] BRIDGE CONSTRUCTION INSPECTOR Physical Exam Vitals Vital signs: Temp Pulse Resp BP Pulse Ox 97.7 F 80 16 123/78 97 09/29/20 10:18 09/29/20 14:24 09/29/20 14:24 09/29/20 14:24 09/29/20 14:24 Body Mass Index 30.8 BRIDGE CONSTRUCTION INSPECTOR - Results Labs CBC & Chem 7: 09/29/20 11:16 09/29/20 11:16 Labs: Short CBC 09/29/20 Range/Units 11:16 WBC 8.6 (4.8-10.8) X10*3/uL Hgb 12.0 (12.0-16.0) g/dl Hct 36.3 L (37-47) % Plt Count 139 L (160-400) X10*3/uL BMP 09/29/20 11:16 Sodium 138 Potassium 3.5 Chloride 111 H Carbon Dioxide 19 L BUN 14 Creatinine 0.73 Calcium 7.8 L D Liver Function 09/29/20 Range/Units 11:16 Total Bilirubin 0.7 (0.0-1.0) mg/dL AST 11 (5-31) U/L ALT 9 (0-31) U/L Alkaline Phosphatase 53 (39-117) U/L Albumin 3.5 (3.5-5.0) g/dL Urine 09/29/20 Range/Units 11:01 Urine Color YELLOW Urine Appearance HAZY Urine pH 6.0 (5.0-8.0) Ur Specific [place] 1.025 (1.005-1.025) Urine Protein TRACE (NEG-TRACE) MG/DL Urine Glucose (UA) NEG (NEG) MG/DL Assessment and Plan (1) Abdominal pain: Status: Acute Discussed with DAVID Nevarez the patient's presentation and pain intensity the workup results including a CT scan and pelvic ultrasound, normal white count, negative test, and a 3.2 cm complex ovarian cyst. Discussed that the presentation, the intensity of the pain is out of proportion to the findings, while the patient needs a follow-up as an outpatient for the complex ovarian cyst, other causes for her presentation and the pain should be explored I did not see nor examined the patient I was only consulted on the phone regarding the patient.
--- NOTE | 2020-09-29 16:09 | PC.NURSE ---
pelvic exam by roberta islas, large amount of white discharge noted. plan to treat for ct/chetna.
[2020-09-29] MEDS: cefTRIAXone sodium 500 MG, Lidocaine HCl 1 % MPF 1 ML IM (16:21)
[2020-09-29] MEDS: Fluconazole 150 MG TABLET PO (16:23)
[2020-09-30 02:17] LABS: CT PCR NOT DETECTED (Not Detect.); NG PCR NOT DETECTED (Not Detect.)
[2020-10-01 14:29] LABS: BV Int Neg Control Negative (Negative); BV Int Pos Control Positive (Positive)
== END 2020-09-29 16:30 | disposition home or self-care (01) ==
PROVIDERS: Physician Assistant Medical; Emergency Provider Emergency Medicine Emergency Medical Services; PCP Internal Medicine
DX: N73.9 Female pelvic inflammatory disease, unspecified (principal); N83.202 Unspecified ovarian cyst, left side; R10.9 Unspecified abdominal pain
CPT/HCPCS: 36415; 51701; 51798; 74177; 76830; 76856; 80053; 81003; 83735; 84702; 85025; 85610; 87480; 87491; 87510; 87591; 87660; 96361; 96372; 96374; 96375; 96376; 99285; 99291; J0696; J1885; J2270; J2405; Q9967

== ENCOUNTER 2020-11-10 16:55 | Emergency (ER) | payer OTHER, SELFPAY ==
--- NOTE | ~2020-11-10 | XR_ITS ---
EXAMINATION: XR CHEST CLINICAL INFORMATION: Chest pain COMPARISON: Chest x-ray March 09, 2014 TECHNIQUE: Frontal portable view of the chest was obtained. 1746 hours FINDINGS: No significant abnormality is noted involving the heart, lungs, mediastinum, bony thorax or soft tissues. XR/XR chest 1V IMPRESSION: Unremarkable examination.
[2020-11-10 17:03] VITALS: BP 113/72; PULSE 76; RESP 18; TEMP 36.8; O2SAT 100; BMI 30.8
--- NOTE | 2020-11-10 17:11 | ECG_ITS ---
Test Reason : CHEST TIGHTNESS Blood Pressure : / mmHG Vent. Rate : 073 BPM Atrial Rate : 073 BPM P-R Int : 128 ms QRS Dur : 078 ms QT Int : 400 ms P-R-T Axes : 042 063 032 degrees QTc Int : 440 ms Normal sinus rhythm Normal ECG When compared with ECG of 04-JUN-2012 13:08, No significant change was found Referred By: Rishi Whitmore Electronically Signed By:YOSI JIMENEZ
--- NOTE | 2020-11-10 17:29 | ED_ITS ---
HPI - Abdominal Pain General Chief Complaint: Abdominal Pain Stated Complaint: abd pain Time Seen by Provider: 11/10/20 17:11 History of Present Illness HPI narrative: This is a 25-year-old female with a history of asthma who developed discomfort in her chest last night. She has had similar pain in the past. She had been out with friends and had a few drinks and also smoked marijuana. She tried using her albuterol inhaler and nebulizer without relief. This morning she began vomiting and states she has not been able hold anything down. She did go to work but states she felt too unwell and came to the emergency department. She denies any cough or fever. She denies diarrhea. She denies any UTI symptoms, denies she could be . She has had acid reflux in the past, and states she was prescribed Zofran in the past for her chest and GI symptoms, did try dose today without relief. Related Data Previous Rx's Medication Instructions Recorded ondansetron 4 mg disintegrating 4 mg PO Q8H PRN #20 tab 02/01/20 tablet ibuprofen 600 mg tablet 600 mg PO Q8H PRN #20 tab 03/18/20 oxycodone 5 mg tablet 5 mg PO Q8H PRN #10 tab 03/18/20 acetaminophen 500 mg tablet 1,000 mg PO QID PRN #14 tab 09/29/20 (Tylenol Extra Strength) doxycycline monohydrate 100 mg 100 mg PO BID 10 Days #20 cap 09/29/20 capsule fluconazole 150 mg tablet 150 mg PO Q3D #2 tab 09/29/20 (Diflucan) ibuprofen 800 mg tablet 800 mg PO Q8H PRN #14 tab 09/29/20 metronidazole 500 mg tablet 500 mg PO BID 7 Days #14 tab 09/29/20 (Flagyl) ondansetron HCl 4 mg tablet 4 mg PO Q8H PRN #14 tab 09/29/20 (Zofran) oxycodone 5 mg tablet 5 mg PO BID PRN #10 tab 09/29/20 famotidine 20 mg tablet (Pepcid) 20 mg PO BID #14 tab 11/10/20 ondansetron 4 mg disintegrating 4 mg PO Q6H PRN #10 tab 11/10/20 tablet Allergies Allergy/AdvReac Type Severity Reaction Status Date / Time No Known Allergies Allergy Unverified 11/10/19 16:17 [No Known Allergies*] Review of Systems Review of Systems Yes all other systems are reviewed and are negative Constitutional: Reports as per HPI and Denies fever(s) Eyes: Reports as per HPI and Reports no additional eye complaints Reports system reviewed and no additional complaints, except as documented, Reports as per HPI, Denies nasal congestion, Denies nasal discharge and Denies sore throat Cardiovascular: Reports as per HPI, Reports chest pain and Denies dyspnea Respiratory: Reports as per HPI, Denies cough and Denies dyspnea Gastrointestinal: Reports as per HPI, Reports abdominal pain (Epigastric), Denies diarrhea and Reports vomiting Genitourinary: Reports as per HPI, Denies hematuria, Denies urinary frequency and Denies dysuria Musculoskeletal: Reports no additional musculoskeletal complaints and Denies numbness Skin/Breast: Reports as per HPI and Denies rash Reports as per HPI, Denies focal weakness, Denies numbness and Denies Sensory deficit (Neuro) Psychiatric: Reports no additional psychiatric complaints and Reports as per HPI Endocrine: Reports no additional endocrine complaints and Reports as per HPI Hematologic/Lymphatic: Reports no additional hematologic/lymphatic complaints, Reports as per HPI and Reports other (No peripheral edema) Physical Exam Vital Signs: Vital Signs: Last Vital Signs Temp 98.2 F 11/10/20 17:03 Pulse 76 11/10/20 17:03 Resp 18 11/10/20 17:03 BP 113/72 11/10/20 17:03 Pulse Ox 100 11/10/20 17:03 Body Mass Index 30.8 Const: General: cooperative, no acute distress and alert Orientation/consciousness: patient oriented x3 HENMT: Head: Yes normal to inspection Eyes: General: appearance normal, both eyes and all related structures Eyelids: Yes eyelids normal Conjunctivae: conjunctivae normal Pupils: Equal, round and reactive pupils present Neck: Neck: Yes normal visual inspection and Yes supple Chest: Chest palpation & inspection: normal inspection of the chest Resp: Effort & Inspection: normal respiratory effort Auscultation: clear to auscultation bilaterally Cardio: Rate: regular rate Rhythm: regular rhythm Heart sounds: S1 normal heart sound present, S2 normal heart sound present, no gallops, no murmurs and no rubs GI: Palpation (GI): Soft to palpation, Tenderness to palpation present (GI) (Mildly tender epigastric) and Other GI palpation findings present (Non- distended) Auscultation: normal bowel sounds Skin: General skin exam: no rashes or lesions noted Neuro: General: patient oriented x3, no focal motor deficits and CN's II-XI intact bilaterally Cranial nerves: Yes Equal, round and reactive pupils present Cognition (Neuro): normal cognition Motor exam (neuro): 5/5 motor strength present throughout Sensory Exam: No Sensory deficit (Neuro) Extrem: General: Yes normal to inspection and Yes no pedal edema Psych: Appearance: grossly normal Affect: normal affect MDM - Abdominal Pain MDM Narrative Medical decision making narrative: Patient with complaints of chest pain since last night as well as vomiting today. Patient appeared somewhat anxious but not ill-appearing. EKG and chest x-ray unremarkable. Troponin negative. Patient improved with Ativan, Maalox. Lab Data Attestation: I reviewed the patient's lab results. Result diagrams: 11/10/20 17:29 11/10/20 17:29 Labs: Lab Results 11/10/20 11/10/20 11/10/20 Range/Units 17:29 17:29 17:29 WBC 10.2 (4.8-10.8) X10*3/uL RBC 4.55 (4.20-5.50) X10*6/uL Hgb 13.8 (12.0-16.0) g/dl Hct 41.6 (37-47) % MCV 91.4 (80-98) fL MCH 30.3 (27.0-33.0) pg MCHC 33.2 (31.0-35.0) g/dl RDW 13.1 (11.0-16.0) % Plt Count 196 D (160-400) X10*3/uL MPV 11.8 (9.4-12.3) fL Immature Gran % (Auto) 0.5 H (0.0-0.4) % Neut % (Auto) 88.0 H (45-73) % Lymph % (Auto) 7.5 L (20-40) % [place] % (Auto) 3.6 (2-11) % Eos % (Auto) 0.1 (0-4) % Baso % (Auto) 0.3 (0-2) % Lymph # (Auto) 0.8 L (1.2-4.9) X10*3/uL [place] # (Auto) 0.4 (0.1-1.2) X10*3/uL Eos # (Auto) 0.0 (0.0-0.4) X10*3/uL Baso # (Auto) 0.0 (0.0-0.2) X10*3/uL Abs Immat Gran (auto) 0.05 H (0.00-0.03) X10*3/uL Absolute Neuts (auto) 9.0 H (2.0-8.3) X10*3/uL Absolute Nucleated RBC 0.000 (0.0-0.012) X10*3/uL Nucleated RBC % (auto) 0.0 (0.0-0.2) /100WBC Sodium 136 (135-145) mmol/L Potassium 4.0 (3.3-5.1) mmol/L Chloride 104 (96-108) mmol/L Carbon Dioxide 22 (22-29) mmol/L Anion Gap 14 (12-20) BUN 12 (9-16) mg/dL Creatinine 0.73 (0.5-1.4) mg/dL Estim Creat Clear Calc 106.4 Estimated GFR > 60 Random Glucose 88 (60-115) mg/dL Calcium 9.3 D (8.4-10.2) mg/dL Total Bilirubin 0.2 (0.0-1.0) mg/dL AST 18 D (5-31) U/L ALT 19 (0-31) U/L Alkaline Phosphatase 61 (39-117) U/L Troponin I High Sens < 3.5 (<3.5-17.0) ng/L Total Protein 7.2 D (6.5-8.0) g/dL Albumin 4.7 D (3.5-5.0) g/dL COVID-19 ([facility]) (Negative) COVID-19 Clin Com 11/10/20 Range/Units 17:39 WBC (4.8-10.8) X10*3/uL RBC (4.20-5.50) X10*6/uL Hgb (12.0-16.0) g/dl Hct (37-47) % MCV (80-98) fL MCH (27.0-33.0) pg MCHC (31.0-35.0) g/dl RDW (11.0-16.0) % Plt Count (160-400) X10*3/uL MPV (9.4-12.3) fL Immature Gran % (Auto) (0.0-0.4) % Neut % (Auto) (45-73) % Lymph % (Auto) (20-40) % [place] % (Auto) (2-11) % Eos % (Auto) (0-4) % Baso % (Auto) (0-2) % Lymph # (Auto) (1.2-4.9) X10*3/uL [place] # (Auto) (0.1-1.2) X10*3/uL Eos # (Auto) (0.0-0.4) X10*3/uL Baso # (Auto) (0.0-0.2) X10*3/uL Abs Immat Gran (auto) (0.00-0.03) X10*3/uL Absolute Neuts (auto) (2.0-8.3) X10*3/uL Absolute Nucleated RBC (0.0-0.012) X10*3/uL Nucleated RBC % (auto) (0.0-0.2) /100WBC Sodium (135-145) mmol/L Potassium (3.3-5.1) mmol/L Chloride (96-108) mmol/L Carbon Dioxide (22-29) mmol/L Anion Gap (12-20) BUN (9-16) mg/dL Creatinine (0.5-1.4) mg/dL Estim Creat Clear Calc Estimated GFR Random Glucose (60-115) mg/dL Calcium (8.4-10.2) mg/dL Total Bilirubin (0.0-1.0) mg/dL AST (5-31) U/L ALT (0-31) U/L Alkaline Phosphatase (39-117) U/L Troponin I High Sens (<3.5-17.0) ng/L Total Protein (6.5-8.0) g/dL Albumin (3.5-5.0) g/dL COVID-19 ([facility]) Negative (Negative) COVID-19 Clin Com See Note Imaging Data Chest x-ray: Radiologist's impression: No acute pathology ECG Data Attestation: I personally reviewed and interpreted this ECG as follows: ECG interpretation date: 11/10/20 ECG interpretation time: 17:37 Interpretation: Sinus rhythm with a rate of 73. No ST elevation or depression. Normal QRS axis. Normal repolarization pattern. Discharge Plan Discharge Clinical Impression: Chest pain, Vomiting Patient Disposition: Home, Self-Care Instructions: Noncardiac Chest Pain (ED) Additional Instructions: Use Zofran for nausea as needed, and Pepcid for stomach acid. Return for any new or worsened symptoms. Follow up with your primary care physician. Prescriptions: New ondansetron 4 mg tablet,disintegrating 4 mg PO Q6H PRN (Reason: nausea and vomiting) Qty: 10 RF: 0 famotidine [Pepcid] 20 mg tablet 20 mg PO BID Qty: 14 RF: 0 No Action ondansetron 4 mg tablet,disintegrating 4 mg PO Q8H PRN (Reason: nausea and vomiting) Qty: 20 RF: 0 oxycodone 5 mg tablet 5 mg PO Q8H PRN (Reason: pain) Qty: 10 RF: 0 ibuprofen 600 mg tablet 600 mg PO Q8H PRN (Reason: pain) Qty: 20 RF: 0 ibuprofen 800 mg tablet 800 mg PO Q8H PRN (Reason: pain) Qty: 14 RF: 0 ondansetron HCl [Zofran] 4 mg tablet 4 mg PO Q8H PRN (Reason: nausea and vomiting) Qty: 14 RF: 0 acetaminophen [Tylenol Extra Strength] 500 mg tablet 1,000 mg PO QID PRN (Reason: fever or pain) Qty: 14 RF: 0 doxycycline monohydrate 100 mg capsule 100 mg PO BID 10 Days Qty: 20 RF: 0 oxycodone 5 mg tablet 5 mg PO BID PRN (Reason: pain) Qty: 10 RF: 0 metronidazole [Flagyl] 500 mg tablet 500 mg PO BID 7 Days Qty: 14 RF: 0 fluconazole [Diflucan] 150 mg tablet 150 mg PO Q3D Qty: 2 RF: 0 Stand Alone Forms: Work/School Release Interventions: ED Discharge Assessment Last Done: 11/10/20 19:07 Discharge Date/Time: 11/10/20 20:16 [facility] Past Medical History Medical History No active medical problems Social History Social History Alcohol intake: never Substance Use Type: Marijuana Advance Directives: No Advance Directives Information Provided: No
[2020-11-10 17:34] LABS: MANUAL DIFF FLAG NO
[2020-11-10 17:36] LABS: Basophils Percent Auto 0.3 % (0-2); Eosinophils Percent Auto 0.1 % (0-4); Hematocrit 41.6 % (37-47); Hemoglobin 13.8 g/dl (12.0-16.0); Imm Gran Abs Auto 0.05 X10*3/uL (0.00-0.03); Imm Gran Pct Auto 0.5 % (0.0-0.4); Lymphocytes Absolute Auto 0.8 X10*3/uL (1.2-4.9); Lymphocytes Percent Auto 7.5 % (20-40); Mean Corpuscular HGB Conc 33.2 g/dl (31.0-35.0); Mean Corpuscular Hemoglobin 30.3 pg (27.0-33.0); Mean Corpuscular Volume 91.4 fL (80-98); Mean Platelet Volume 11.8 fL (9.4-12.3); Monocytes Absolute Auto 0.4 X10*3/uL (0.1-1.2); Monocytes Percent Auto 3.6 % (2-11); Platelet Count 196 X10*3/uL (160-400); Red Blood Count 4.55 X10*6/uL (4.20-5.50); Red Cell Distribution Width 13.1 % (11.0-16.0); White Blood Count 10.2 X10*3/uL (4.8-10.8)
[2020-11-10] MEDS: 0.9 % Sodium Chloride 1,000 ML 999 ML IV (17:37)
[2020-11-10] MEDS: LORazepam 2 MG/ML VIAL 0.5 MG IVPUSH (17:37)
[2020-11-10] MEDS: ondansetron HCL 4 MG/2 ML VIAL IVPUSH (17:37)
[2020-11-10] MEDS: Magnesium Hydrox/Alum Hydrox 30 ML ORAL.SUSP PO (17:37)
[2020-11-10 17:51] LABS: Alanine Aminotransferase 19 U/L (0-31); Albumin Level 4.7 g/dL (3.5-5.0); Alkaline Phosphatase 61 U/L (39-117); Anion Gap 14 (12-20); Aspartate Amino Transferase 18 U/L (5-31); Bilirubin Total 0.2 mg/dL (0.0-1.0); Blood Urea Nitrogen 12 mg/dL (9-16); Calcium 9.3 mg/dL (8.4-10.2); Carbon Dioxide 22 mmol/L (22-29); Chloride 104 mmol/L (96-108); Creatinine Clr Calc Pharmacy 106.4; Estimated Glomerular Filt Rate > 60; Glucose Random 88 mg/dL (60-115); Sodium 136 mmol/L (135-145); Total Protein 7.2 g/dL (6.5-8.0)
[2020-11-10 17:55] LABS: Troponin-I High Sensitivity < 3.5 ng/L (<3.5-17.0)
[2020-11-10 18:06] LABS: COVID-19 Test Negative (Negative)
== END 2020-11-10 20:16 | disposition home or self-care (01) ==
PROVIDERS: Emergency Provider Emergency Medicine
DX: R10.9 Unspecified abdominal pain (principal); R11.10 Vomiting, unspecified; J45.909 Unspecified asthma, uncomplicated; F12.90 Cannabis use, unspecified, uncomplicated; Z20.822 Contact with and (suspected) exposure to COVID-19; Z79.899 Other long term (current) drug therapy
CPT/HCPCS: 36415; 71045; 80053; 84484; 85025; 87635; 93005; 96361; 96374; 96375; 99283; 99284; J2060; J2405

== ENCOUNTER 2020-11-30 10:28 | Emergency (ER) | payer OTHER, SELFPAY ==
--- NOTE | ~2020-11-30 | CT_ITS ---
EXAMINATION: CT ABDOMEN AND PELVIS WITH CONTRAST CLINICAL INFORMATION: Epigastric/right upper quadrant pain. COMPARISON: None TECHNIQUE: Multidetector volumetric images were obtained from the superior aspect of the liver through the pubic symphysis following administration 85 mL of Omnipaque 350 intravenous contrast. Sagittal and coronal reformatted images were obtained on the technologist's workstation. Oral contrast: No This CT examination was performed using dose optimization techniques as appropriate, variously including the following: *Automated exposure control *Adjustment of mA and/or kV according to patient size (this includes techniques or standardized protocols for targeted exams where dose is matched to indication/reason for exam; i.e. extremities or head) *Use of iterative reconstruction technique DLP: 614 mGy-cm FINDINGS: LUNG BASES: The heart size is normal. There is bibasilar dependent atelectasis. LIVER, GALLBLADDER, AND BILIARY TREE: The liver is normal in size, shape, and attenuation. No focal hepatic lesion or biliary ductal dilatation is present. The gallbladder is unremarkable with no evidence of radiopaque gallstones, gallbladder wall thickening, or obvious pericholecystic inflammatory changes. PANCREAS: Unremarkable. SPLEEN: Unremarkable. ADRENAL GLANDS: Unremarkable. KIDNEYS AND URETERS: The kidneys are normal in size, shape, and attenuation. No hydronephrosis, hydroureter, or calculi seen. No perinephric stranding. BLADDER: Unremarkable. GASTROINTESTINAL TRACT: The colon and small bowel loops are unremarkable. No free air or free fluid seen. ABDOMINAL WALL: No significant hernia is appreciated. LYMPH NODES: Normal. VASCULAR: Unremarkable. PELVIC VISCERA: There is 4.2 x 3.9 cm thick-walled hypodense lesion in the left adnexa likely a large cyst. There is adjacent smaller cyst measuring 2.3 x 2.0 cm. There are small a septated cyst in the right adnexa measuring 1.7 cm. There is minimal free fluid in cul-de-sac. The uterus is anteverted and appears unremarkable. OSSEOUS STRUCTURES: No lytic or sclerotic process seen. CT/CT abdomen pelvis w con IMPRESSION: No acute intra-abdominal abnormality seen. There are 2 cysts in the left adnexa larger one measuring 4.2 cm. There is a solitary cyst in the right kidney which is small and likely septated. There is physiological minimal free fluid in the cul-de-sac. There is no abnormality seen in the epigastric region and right upper quadrant.
[2020-11-30 10:42] VITALS: BP 109/60; BP 109/78; PULSE 72; PULSE 81; RESP 18; TEMP 36.7; O2SAT 100; O2SAT 97; BMI 30.8
--- NOTE | 2020-11-30 11:32 | ED.ABDPAIN ---
HPI - Abdominal Pain General Chief Complaint: Abdominal Pain Stated Complaint: abd pain Time Seen by Provider: 11/30/20 12:08 Source: patient Mode of arrival: ambulatory Limitations: no limitations History of Present Illness HPI narrative: 25-year-old patient presents to the ED for epigastric abdominal pain and right upper quadrant pain since last night. Patient states last night she drank lots of Mari ( alcohol) and since then has been having pain. Patient states due to pain and not being able to eat. Patient states also nausea, but no vomiting. Patient denies any dysuria, hematuria, vaginal bleeding, fever, chills. Patient denies any lower abdominal pain. Patient admits to drinking alcohol all night last night with no food Related Data Previous Rx's Medication Instructions Recorded ondansetron 4 mg disintegrating 4 mg PO Q8H PRN #20 tab 02/01/20 tablet ibuprofen 600 mg tablet 600 mg PO Q8H PRN #20 tab 03/18/20 oxycodone 5 mg tablet 5 mg PO Q8H PRN #10 tab 03/18/20 acetaminophen 500 mg tablet 1,000 mg PO QID PRN #14 tab 09/29/20 (Tylenol Extra Strength) doxycycline monohydrate 100 mg 100 mg PO BID 10 Days #20 cap 09/29/20 capsule fluconazole 150 mg tablet 150 mg PO Q3D #2 tab 09/29/20 (Diflucan) ibuprofen 800 mg tablet 800 mg PO Q8H PRN #14 tab 09/29/20 metronidazole 500 mg tablet 500 mg PO BID 7 Days #14 tab 09/29/20 (Flagyl) ondansetron HCl 4 mg tablet 4 mg PO Q8H PRN #14 tab 09/29/20 (Zofran) oxycodone 5 mg tablet 5 mg PO BID PRN #10 tab 09/29/20 famotidine 20 mg tablet (Pepcid) 20 mg PO BID #14 tab 11/10/20 ondansetron 4 mg disintegrating 4 mg PO Q6H PRN #10 tab 11/10/20 tablet famotidine 20 mg tablet (Pepcid) 20 mg PO BID 20 Days #40 tab 11/30/20 Allergies Allergy/AdvReac Type Severity Reaction Status Date / Time No Known Allergies Allergy Unverified 11/10/19 16:17 [No Known Allergies*] Review of Systems Review of Systems Yes all other systems are reviewed and are negative Constitutional: Reports as per HPI and Reports no additional constitutional complaints Eyes: Reports as per HPI and Reports no additional eye complaints Reports system reviewed and no additional complaints, except as documented and Reports as per HPI Cardiovascular: Reports as per HPI and Reports no additional cardiovascular complaints Respiratory: Reports as per HPI and Reports no additional respiratory complaints Gastrointestinal: Reports as per HPI, Reports no additional gastrointestinal complaints, Reports abdominal pain and Reports nausea Genitourinary: Reports no additional female genitourinary complaints and Reports as per HPI Musculoskeletal: Reports no additional musculoskeletal complaints and Reports as per HPI Reports system reviewed and no additional complaints, except as documented and Reports as per HPI Psychiatric: Reports no additional psychiatric complaints and Reports as per HPI Physical Exam Vital Signs: Vital Signs: Last Vital Signs Temp 98.0 F 11/30/20 14:27 Pulse 82 11/30/20 14:27 Resp 16 11/30/20 14:27 BP 117/80 11/30/20 14:27 Pulse Ox 97 11/30/20 14:27 Body Mass Index 30.8 Const: Other: Alcohol on breath General: cooperative, healthy appearing, comfortable, no acute distress, well developed, alert, awake and Physically active Orientation/consciousness: patient oriented x3 HENMT: Head: Yes normal to inspection, Yes No palpable skull fracture present, Yes normocephalic and Yes atraumatic Eyes: General: appearance normal, both eyes and all related structures Neck: Neck: Yes normal visual inspection, Yes full ROM, Yes no lymphadenopathy, Yes no meningeal signs, Yes trachea midline, Yes supple and No tender Chest: Chest palpation & inspection: normal inspection of the chest and normal palpation of entire chest wall Resp: Effort & Inspection: normal respiratory effort and able to speak in complete sentences Auscultation: clear to auscultation bilaterally Cardio: Jugular venous distension: no JVD Heart sounds: S1 normal heart sound present and S2 normal heart sound present GI: Inspection: Yes normal to inspection and No abdominal wall ecchymosis Palpation (GI): Soft to palpation, not firm, Tenderness to palpation present (GI) in the epigastrum and in the RUQ; Negative for not in the LLQ, not in the RLQ, not in the LUQ, not at McBurney's point, not periumbilically, not suprapubicly, Funk's sign negative, obturator sign negative, psoas sign negative, with no rebound tenderness and Rovsing's sign negative, no guarding and not rigid : General: No CVA tenderness and Yes no CVA tenderness Back/Spine/Pelvis: Back: no CVA tenderness, No CVA tenderness and No ecchymosis Skin: General skin exam: no rashes or lesions noted and elasticity normal Neuro: General: patient oriented x3, gait normal, no meningeal signs and CN's II-XI intact bilaterally Cranial nerves: Yes CN's II-XII intact bilaterally Extrem: General: Yes normal to inspection and Yes full ROM Psych: Appearance: grossly normal, well kempt and not disheveled Course Course Course Narrative: Bedside ultrasound negative for obvious gallstones. Will do blood work and give medications. Reevaluation(s) Reevaluation #1: After receiving GI cocktail patient still has some upper quadrant pain he states that improved but still present send for abdominal CT scan. Labs are normal. Time: 12:03 Reevaluation #2: Patient know CT scan came back normal and negative for any intra-abdominal processes. CT scan shows cyst which patient is aware of. Patient does not have any lower quadrant pain. Patient given fluids. Waiting for UA. Abdominal pain significantly improved Time: 16:46 Reevaluation #3: Fluids finished. UA negative for UTI. Diagnosis GERD alcohol gastritis Time: 18:18 MDM - Abdominal Pain MDM Narrative Medical decision making narrative: GERD. Alcoholic gastritis Lab Data Result diagrams: 11/30/20 12:03 11/30/20 12:03 Labs: Lab Results 11/30/20 11/30/20 11/30/20 Range/Units 12:03 12:03 17:13 WBC 5.8 (4.8-10.8) X10*3/uL RBC 4.19 L (4.20-5.50) X10*6/uL Hgb 12.8 (12.0-16.0) g/dl Hct 39.2 (37-47) % MCV 93.6 (80-98) fL MCH 30.5 (27.0-33.0) pg MCHC 32.7 (31.0-35.0) g/dl RDW 13.2 (11.0-16.0) % Plt Count 181 (160-400) X10*3/uL MPV 11.5 (9.4-12.3) fL Immature Gran % (Auto) 0.3 (0.0-0.4) % Neut % (Auto) 76.4 H (45-73) % Lymph % (Auto) 19.7 L (20-40) % [place] % (Auto) 2.6 (2-11) % Eos % (Auto) 0.3 (0-4) % Baso % (Auto) 0.7 (0-2) % Lymph # (Auto) 1.2 (1.2-4.9) X10*3/uL [place] # (Auto) 0.2 (0.1-1.2) X10*3/uL Eos # (Auto) 0.0 (0.0-0.4) X10*3/uL Baso # (Auto) 0.0 (0.0-0.2) X10*3/uL Abs Immat Gran (auto) 0.02 (0.00-0.03) X10*3/uL Absolute Neuts (auto) 4.5 (2.0-8.3) X10*3/uL Absolute Nucleated RBC 0.000 (0.0-0.012) X10*3/uL Nucleated RBC % (auto) 0.0 (0.0-0.2) /100WBC Sodium 139 (135-145) mmol/L Potassium 4.1 (3.3-5.1) mmol/L Chloride 108 (96-108) mmol/L Carbon Dioxide 24 (22-29) mmol/L Anion Gap 11 L (12-20) BUN 10 (9-16) mg/dL Creatinine 0.74 (0.5-1.4) mg/dL Estim Creat Clear Calc 105.0 Estimated GFR > 60 Random Glucose 112 (60-115) mg/dL Calcium 9.0 (8.4-10.2) mg/dL Total Bilirubin 0.2 (0.0-1.0) mg/dL Direct Bilirubin < 0.2 (0.0-0.5) mg/dL AST 23 (5-31) U/L ALT 27 (0-31) U/L Alkaline Phosphatase 65 (39-117) U/L Total Protein 6.8 (6.5-8.0) g/dL Albumin 4.2 (3.5-5.0) g/dL Lipase 13 (8-78) U/L Beta HCG, Quant < 2 mIU/mL Urine Color YELLOW Urine Appearance CLEAR Urine pH 7.5 (5.0-8.0) Ur Specific [place] 1.010 (1.005-1.025) Urine Protein NEG (NEG-TRACE) MG/DL Urine Glucose (UA) NEG (NEG) MG/DL Urine Ketones NEG (NEG) MG/DL Urine Blood NEG (NEG) Urine Nitrite NEG (NEG) Ur Leukocyte Esterase NEG (NEG) Urine Test (NEGATIVE) 11/30/20 Range/Units 17:13 WBC (4.8-10.8) X10*3/uL RBC (4.20-5.50) X10*6/uL Hgb (12.0-16.0) g/dl Hct (37-47) % MCV (80-98) fL MCH (27.0-33.0) pg MCHC (31.0-35.0) g/dl RDW (11.0-16.0) % Plt Count (160-400) X10*3/uL MPV (9.4-12.3) fL Immature Gran % (Auto) (0.0-0.4) % Neut % (Auto) (45-73) % Lymph % (Auto) (20-40) % [place] % (Auto) (2-11) % Eos % (Auto) (0-4) % Baso % (Auto) (0-2) % Lymph # (Auto) (1.2-4.9) X10*3/uL [place] # (Auto) (0.1-1.2) X10*3/uL Eos # (Auto) (0.0-0.4) X10*3/uL Baso # (Auto) (0.0-0.2) X10*3/uL Abs Immat Gran (auto) (0.00-0.03) X10*3/uL Absolute Neuts (auto) (2.0-8.3) X10*3/uL Absolute Nucleated RBC (0.0-0.012) X10*3/uL Nucleated RBC % (auto) (0.0-0.2) /100WBC Sodium (135-145) mmol/L Potassium (3.3-5.1) mmol/L Chloride (96-108) mmol/L Carbon Dioxide (22-29) mmol/L Anion Gap (12-20) BUN (9-16) mg/dL Creatinine (0.5-1.4) mg/dL Estim Creat Clear Calc Estimated GFR Random Glucose (60-115) mg/dL Calcium (8.4-10.2) mg/dL Total Bilirubin (0.0-1.0) mg/dL Direct Bilirubin (0.0-0.5) mg/dL AST (5-31) U/L ALT (0-31) U/L Alkaline Phosphatase (39-117) U/L Total Protein (6.5-8.0) g/dL Albumin (3.5-5.0) g/dL Lipase (8-78) U/L Beta HCG, Quant mIU/mL Urine Color Urine Appearance Urine pH (5.0-8.0) Ur Specific [place] (1.005-1.025) Urine Protein (NEG-TRACE) MG/DL Urine Glucose (UA) (NEG) MG/DL Urine Ketones (NEG) MG/DL Urine Blood (NEG) Urine Nitrite (NEG) Ur Leukocyte Esterase (NEG) Urine Test NEGATIVE (NEGATIVE) Discharge Plan Discharge Clinical Impression: Gastroesophageal reflux disease, Acute alcoholic gastritis Patient Disposition: Home, Self-Care Instructions: Gastritis (ED), Gastroesophageal Reflux Disease (ED) Additional Instructions: Your blood work and urine came back normal. CT scan came back negative for any appendicitis, cholecystitis, or pancreatitis. CT scan shows ovarian cyst. Return to the ED for any worsening abdominal pain, nausea, vomiting, fever, chills, coughing up blood, blood in urine, rectal bleeding, flank pain, vaginal bleeding, or any other concerning symptoms. Please follow-up with PCP Prescriptions: New famotidine [Pepcid] 20 mg tablet 20 mg PO BID 20 Days Qty: 40 RF: 0 No Action ondansetron 4 mg tablet,disintegrating 4 mg PO Q8H PRN (Reason: nausea and vomiting) Qty: 20 RF: 0 oxycodone 5 mg tablet 5 mg PO Q8H PRN (Reason: pain) Qty: 10 RF: 0 ibuprofen 600 mg tablet 600 mg PO Q8H PRN (Reason: pain) Qty: 20 RF: 0 ibuprofen 800 mg tablet 800 mg PO Q8H PRN (Reason: pain) Qty: 14 RF: 0 ondansetron HCl [Zofran] 4 mg tablet 4 mg PO Q8H PRN (Reason: nausea and vomiting) Qty: 14 RF: 0 acetaminophen [Tylenol Extra Strength] 500 mg tablet 1,000 mg PO QID PRN (Reason: fever or pain) Qty: 14 RF: 0 doxycycline monohydrate 100 mg capsule 100 mg PO BID 10 Days Qty: 20 RF: 0 oxycodone 5 mg tablet 5 mg PO BID PRN (Reason: pain) Qty: 10 RF: 0 metronidazole [Flagyl] 500 mg tablet 500 mg PO BID 7 Days Qty: 14 RF: 0 fluconazole [Diflucan] 150 mg tablet 150 mg PO Q3D Qty: 2 RF: 0 ondansetron 4 mg tablet,disintegrating 4 mg PO Q6H PRN (Reason: nausea and vomiting) Qty: 10 RF: 0 famotidine [Pepcid] 20 mg tablet 20 mg PO BID Qty: 14 RF: 0 Stand Alone Forms: Work/School Release Print Language: Fijian [facility] Past Medical History Medical History No active medical problems Social History Social History Alcohol intake: current Alcohol intake frequency: holidays/special occasions only Patient Tobacco Use Status: Never used Tobacco Use of substances other than those prescribed or required for medical reasons: Yes Substance Use Type: Marijuana Substance Use Frequency: Daily Substance Use Frequency Other:: a blunt per day Advance Directives: No Advance Directives Information Provided: Yes Patient : No
[2020-11-30] MEDS: ondansetron HCL 4 MG/2 ML VIAL IVPUSH (11:38)
[2020-11-30] MEDS: Famotidine/PF 20 MG/2 ML VIAL IVPUSH (11:40)
[2020-11-30] MEDS: Magnesium Hydrox/Alum Hydrox 30 ML ORAL.SUSP PO (11:43)
[2020-11-30] MEDS: Lidocaine HCl Viscous 2 % 15 ML SOLUTION MUCOUS MEM (11:43)
[2020-11-30] MEDS: PHENobarb/Hyoscy/Atropine/Scop 10 ML ELIXIR PO (11:44)
[2020-11-30 11:56] VITALS: BP 113/56; PULSE 68; RESP 16; TEMP 36.6; O2SAT 97
[2020-11-30 12:07] LABS: MANUAL DIFF FLAG NO
[2020-11-30 12:09] LABS: Basophils Percent Auto 0.7 % (0-2); Eosinophils Percent Auto 0.3 % (0-4); Hematocrit 39.2 % (37-47); Hemoglobin 12.8 g/dl (12.0-16.0); Imm Gran Abs Auto 0.02 X10*3/uL (0.00-0.03); Imm Gran Pct Auto 0.3 % (0.0-0.4); Lymphocytes Absolute Auto 1.2 X10*3/uL (1.2-4.9); Lymphocytes Percent Auto 19.7 % (20-40); Mean Corpuscular HGB Conc 32.7 g/dl (31.0-35.0); Mean Corpuscular Hemoglobin 30.5 pg (27.0-33.0); Mean Corpuscular Volume 93.6 fL (80-98); Mean Platelet Volume 11.5 fL (9.4-12.3); Monocytes Absolute Auto 0.2 X10*3/uL (0.1-1.2); Monocytes Percent Auto 2.6 % (2-11); Neutrophils Absolute Auto 4.5 X10*3/uL (2.0-8.3); Neutrophils Percent Auto 76.4 % (45-73); Platelet Count 181 X10*3/uL (160-400); Red Blood Count 4.19 X10*6/uL (4.20-5.50); Red Cell Distribution Width 13.2 % (11.0-16.0); White Blood Count 5.8 X10*3/uL (4.8-10.8)
[2020-11-30 12:26] LABS: Alanine Aminotransferase 27 U/L (0-31); Albumin Level 4.2 g/dL (3.5-5.0); Alkaline Phosphatase 65 U/L (39-117); Anion Gap 11 (12-20); Aspartate Amino Transferase 23 U/L (5-31); Bilirubin Direct < 0.2 mg/dL (0.0-0.5); Bilirubin Total 0.2 mg/dL (0.0-1.0); Blood Urea Nitrogen 10 mg/dL (9-16); Carbon Dioxide 24 mmol/L (22-29); Chloride 108 mmol/L (96-108); Estimated Glomerular Filt Rate > 60; Glucose Random 112 mg/dL (60-115); Lipase 13 U/L (8-78); Potassium 4.1 mmol/L (3.3-5.1); Sodium 139 mmol/L (135-145); Total Protein 6.8 g/dL (6.5-8.0)
[2020-11-30 12:46] LABS: HCG Quantitative < 2 mIU/mL
[2020-11-30 14:27] VITALS: BP 117/80; PULSE 82; RESP 16; TEMP 36.7; O2SAT 97
[2020-11-30] MEDS: iohexoL 350 MG/ML 100 ML INFUS..BTL IV (15:36)
[2020-11-30] MEDS: 0.9 % Sodium Chloride 1,000 ML 999 ML IV (16:42)
[2020-11-30 17:21] LABS: Appearance Urine CLEAR; Color Urine YELLOW; Glucose Urine UA NEG (NEG); Leukocyte Esterase Urine NEG (NEG); Nitrite Urine NEG (NEG); PH 7.5 (5.0-8.0); Urine Blood NEG (NEG); Urine Ketones NEG (NEG); Urine Protein NEG (NEG-TRACE)
[2020-11-30 17:26] LABS: UPreg QC Valid YES; Urine Pregnancy NEGATIVE (NEGATIVE)
== END 2020-11-30 19:04 | disposition home or self-care (01) ==
PROVIDERS: Physician Assistant; Emergency Provider Emergency Medicine Emergency Medical Services; PCP Internal Medicine
DX: K29.20 Alcoholic gastritis without bleeding (principal); K21.9 Gastro-esophageal reflux disease without esophagitis
CPT/HCPCS: 36415; 74177; 80053; 81003; 81025; 82248; 83690; 84702; 85025; 96361; 96374; 96375; 99284; 99285; J2405; Q9967

== ENCOUNTER 2021-05-11 10:19 | Emergency (ER) | payer OTHER, SELFPAY ==
--- NOTE | ~2021-05-11 | CT_ITS ---
EXAMINATION: CT ABDOMEN AND PELVIS WITH CONTRAST CLINICAL INFORMATION: Abdominal pain COMPARISON: November 30, 2020 TECHNIQUE: Multidetector volumetric images were obtained from the superior aspect of the liver through the pubic symphysis following administration 85 mL of Omnipaque 350 intravenous contrast. Sagittal and coronal reformatted images were obtained on the technologist's workstation. Oral contrast: No This CT examination was performed using dose optimization techniques as appropriate, variously including the following: *Automated exposure control *Adjustment of mA and/or kV according to patient size (this includes techniques or standardized protocols for targeted exams where dose is matched to indication/reason for exam; i.e. extremities or head) *Use of iterative reconstruction technique DLP: 614 mGy-cm FINDINGS: LUNG BASES: The visualized lung bases are unremarkable. No pleural or pericardial effusion. LIVER, GALLBLADDER, AND BILIARY TREE: The liver is normal in size, shape, and attenuation. No focal hepatic lesion or biliary ductal dilatation is present. The gallbladder is unremarkable with no evidence of radiopaque gallstones, gallbladder wall thickening, or obvious pericholecystic inflammatory changes. PANCREAS: Unremarkable. SPLEEN: Unremarkable. ADRENAL GLANDS: Unremarkable. KIDNEYS AND URETERS: The kidneys are normal in size, shape, and attenuation. No hydronephrosis, hydroureter, or calculi seen. No perinephric stranding. BLADDER: Unremarkable. GASTROINTESTINAL TRACT: No free air is appreciated. There is small amount of free fluid seen within the pelvis. No dilated loops of large or small bowel. No pericolonic inflammatory change. The appendix is visualized and appears unremarkable. ABDOMINAL WALL: No significant hernia is appreciated. LYMPH NODES: There is a 1 cm left iliac chain lymph node. This was present on prior study of November 30, 2020 VASCULAR: Unremarkable. PELVIC VISCERA: There is a small amount of free pelvic fluid seen centered on the lower right pelvis. Within the right adnexa there is a 1.9 x 1.4 x 1.6 cm cystic structure with some rim enhancement. Within the left adnexal region there is a 4.2 x 4.4 x 3.9 cm cystic structure with enhancing margin. The left-sided cyst appears similar to previous study of November 30, 2020 OSSEOUS STRUCTURES: Unremarkable. CT/CT abdomen pelvis w con IMPRESSION: No evidence of bowel ileus or obstruction. No acute diverticulitis. No acute appendicitis. No evidence of obstructive uropathy. Small amount of free pelvic fluid with bilateral adnexal cysts as described. Fleischner guidelines were followed.
[2021-05-11 10:24] VITALS: BP 116/67; PULSE 75; RESP 16; TEMP 36.4; O2SAT 98; BMI 30.8
--- NOTE | 2021-05-11 12:07 | ED_ITS ---
HPI - Nausea/Vomiting/Diarrhea General Chief complaint: Nausea/Vomiting/Diarrhea Stated complaint: N/V Time Seen by Provider: 05/11/21 12:04 History of Present Illness HPI Narrative: Patient is a 26-year-old female presents today with having nausea vomiting diarrhea generalized malaise. No fever no chills no coughing or congestion. Patient from home. Immunized for COVID. Does not think she is her last menstrual period was middle last month. Related Data Previous Rx's Medication Instructions Recorded ondansetron 4 mg disintegrating 4 mg PO Q8H PRN #20 tab 02/01/20 tablet ibuprofen 600 mg tablet 600 mg PO Q8H PRN #20 tab 03/18/20 oxycodone 5 mg tablet 5 mg PO Q8H PRN #10 tab 03/18/20 acetaminophen 500 mg tablet 1,000 mg PO QID PRN #14 tab 09/29/20 (Tylenol Extra Strength) doxycycline monohydrate 100 mg 100 mg PO BID 10 Days #20 cap 09/29/20 capsule fluconazole 150 mg tablet 150 mg PO Q3D #2 tab 09/29/20 (Diflucan) ibuprofen 800 mg tablet 800 mg PO Q8H PRN #14 tab 09/29/20 metronidazole 500 mg tablet 500 mg PO BID 7 Days #14 tab 09/29/20 (Flagyl) ondansetron HCl 4 mg tablet 4 mg PO Q8H PRN #14 tab 09/29/20 (Zofran) oxycodone 5 mg tablet 5 mg PO BID PRN #10 tab 09/29/20 famotidine 20 mg tablet (Pepcid) 20 mg PO BID #14 tab 11/10/20 ondansetron 4 mg disintegrating 4 mg PO Q6H PRN #10 tab 11/10/20 tablet famotidine 20 mg tablet (Pepcid) 20 mg PO BID 20 Days #40 tab 11/30/20 ondansetron 4 mg disintegrating 4 mg PO TID PRN 5 Days #10 tab 05/11/21 tablet Allergies Allergy/AdvReac Type Severity Reaction Status Date / Time No Known Allergies Allergy Unverified 11/10/19 16:17 [No Known Allergies*] Review of Systems Review of Systems: No fever no chills. positive nausea vomiting diarrhea. Positive generalized malaise Yes all other systems are reviewed and are negative PMFSH Past Medical History Attestation statement: The following information was validated with the patient. Medical History No active medical problems Social History Social History Alcohol intake: current Alcohol intake frequency: holidays/special occasions only Patient Tobacco Use Status: Never used Tobacco Substance Use Type: Marijuana Advance Directives: No Advance Directives Information Provided: No Physical Exam Vital Signs: Vital Signs: Last Vital Signs Temp 97.6 F 05/11/21 10:24 Pulse 69 05/11/21 15:03 Resp 16 05/11/21 15:03 BP 106/60 05/11/21 15:03 Pulse Ox 98 05/11/21 15:03 BMI result Body Mass Index 30.8 Appearance: Alert. Oriented X3. No acute distress. Eyes: Pupils equal, round and reactive to light. ENT: Pharynx normal. Neck: Normal inspection. Neck supple. No lymph nodes noted. No crepitus CVS: Normal heart rate and rhythm. Pulses normal. Normal S1 and S2 Respiratory: No respiratory distress. Breath sounds normal. No Wheezing. No rales Abdomen: Soft and nontender. No rigidity. No distention. good BS x4 Skin: Skin warm and dry. Normal skin color. Normal skin turgor. Extremities: No lower extremity edema. Neurovascular intact to all extremities. No Lacerations. No Rash Neuro: Oriented X 3. No motor deficit. No sensory deficit. Moving all extermities. No slurred speech MDM - Nausea/Vomiting/Diarrhea Lab Data Result diagrams: 05/11/21 12:34 05/11/21 12:34 Labs: Lab Results 05/11/21 05/11/21 05/11/21 Range/Units 12:34 12:34 12:34 WBC 8.0 (4.8-10.8) X10*3/uL RBC 4.23 (4.20-5.50) X10*6/uL Hgb 12.7 (12.0-16.0) g/dl Hct 39.5 (37.0-47.0) % MCV 93.4 (80.0-98.0) fL MCH 30.0 (27.0-33.0) pg MCHC 32.2 (31.0-35.0) g/dl RDW 13.4 (11.0-16.0) % Plt Count 181 (160-400) X10*3/uL MPV 11.9 (9.4-12.3) fL Immature Gran % (Auto) 0.4 (0.0-0.4) % Neut % (Auto) 77.0 H (45-73) % Lymph % (Auto) 17.0 L (20-40) % [place] % (Auto) 4.3 (2-11) % Eos % (Auto) 0.8 (0-4) % Baso % (Auto) 0.5 (0-2) % Lymph # (Auto) 1.4 (1.2-4.9) X10*3/uL [place] # (Auto) 0.3 (0.1-1.2) X10*3/uL Eos # (Auto) 0.1 (0.0-0.4) X10*3/uL Baso # (Auto) 0.0 (0.0-0.2) X10*3/uL Abs Immat Gran (auto) 0.03 (0.00-0.03) X10*3/uL Absolute Neuts (auto) 6.1 (2.0-8.3) x10*3/uL Absolute Nucleated RBC 0.000 (0.0-0.012) X10*3/uL Nucleated RBC % (auto) 0.0 (0.0-0.2) /100WBC Sodium 137 (135-145) mmol/L Potassium 4.0 (3.3-5.1) mmol/L Chloride 109 H (96-108) mmol/L Carbon Dioxide 19 L (22-29) mmol/L Anion Gap 13 (12-20) BUN 15 (9-16) mg/dL Creatinine 0.72 (0.5-1.4) mg/dL Estim Creat Clear Calc 106.9 Estimated GFR > 60 Random Glucose 85 (60-115) mg/dL Calcium 9.3 (8.4-10.2) mg/dL Total Bilirubin 0.6 (0.0-1.0) mg/dL Direct Bilirubin 0.2 (0.0-0.5) mg/dL AST 20 (5-31) U/L ALT 20 (0-31) U/L Alkaline Phosphatase 64 (39-117) U/L Total Protein 6.8 (6.5-8.0) g/dL Albumin 4.3 (3.5-5.0) g/dL Lipase 7 L (8-78) U/L Beta HCG, Quant < 2 mIU/mL Urine Color Urine Appearance Urine pH (5.0-8.0) Ur Specific [place] (1.005-1.025) Urine Protein (NEG-TRACE) MG/DL Urine Glucose (UA) (NEG) MG/DL Urine Ketones (NEG) MG/DL Urine Blood (NEG) Urine Nitrite (NEG) Ur Leukocyte Esterase (NEG) Urine RBC (0) /HPF Urine WBC (0-4) /HPF Ur Squamous Epith Cells /LPF Urine Bacteria /LPF Urine Mucus /LPF COVID-19 ([facility]) (Negative) COVID-19 Clin Com 05/11/21 05/11/21 Range/Units 12:34 13:10 WBC (4.8-10.8) X10*3/uL RBC (4.20-5.50) X10*6/uL Hgb (12.0-16.0) g/dl Hct (37.0-47.0) % MCV (80.0-98.0) fL MCH (27.0-33.0) pg MCHC (31.0-35.0) g/dl RDW (11.0-16.0) % Plt Count (160-400) X10*3/uL MPV (9.4-12.3) fL Immature Gran % (Auto) (0.0-0.4) % Neut % (Auto) (45-73) % Lymph % (Auto) (20-40) % [place] % (Auto) (2-11) % Eos % (Auto) (0-4) % Baso % (Auto) (0-2) % Lymph # (Auto) (1.2-4.9) X10*3/uL [place] # (Auto) (0.1-1.2) X10*3/uL Eos # (Auto) (0.0-0.4) X10*3/uL Baso # (Auto) (0.0-0.2) X10*3/uL Abs Immat Gran (auto) (0.00-0.03) X10*3/uL Absolute Neuts (auto) (2.0-8.3) x10*3/uL Absolute Nucleated RBC (0.0-0.012) X10*3/uL Nucleated RBC % (auto) (0.0-0.2) /100WBC Sodium (135-145) mmol/L Potassium (3.3-5.1) mmol/L Chloride (96-108) mmol/L Carbon Dioxide (22-29) mmol/L Anion Gap (12-20) BUN (9-16) mg/dL Creatinine (0.5-1.4) mg/dL Estim Creat Clear Calc Estimated GFR Random Glucose (60-115) mg/dL Calcium (8.4-10.2) mg/dL Total Bilirubin (0.0-1.0) mg/dL Direct Bilirubin (0.0-0.5) mg/dL AST (5-31) U/L ALT (0-31) U/L Alkaline Phosphatase (39-117) U/L Total Protein (6.5-8.0) g/dL Albumin (3.5-5.0) g/dL Lipase (8-78) U/L Beta HCG, Quant mIU/mL Urine Color YELLOW Urine Appearance CLEAR Urine pH 6.5 (5.0-8.0) Ur Specific [place] 1.020 (1.005-1.025) Urine Protein NEG (NEG-TRACE) MG/DL Urine Glucose (UA) NEG (NEG) MG/DL Urine Ketones >=80 (NEG) MG/DL Urine Blood NEG (NEG) Urine Nitrite NEG (NEG) Ur Leukocyte Esterase NEG (NEG) Urine RBC 0-2 (0) /HPF Urine WBC 1-4 (0-4) /HPF Ur Squamous Epith Cells 2+ /LPF Urine Bacteria TRACE /LPF Urine Mucus 1+ /LPF COVID-19 ([facility]) Negative (Negative) COVID-19 Clin Com See Note Discharge Plan Discharge Clinical Impression: Gastroenteritis Patient Disposition: Home, Self-Care Instructions: Acute Nausea and Vomiting (ED), Acute Diarrhea (ED) Prescriptions: New ondansetron 4 mg tablet,disintegrating 4 mg PO TID PRN (Reason: nausea and vomiting) 5 Days Qty: 10 0RF No Action ondansetron 4 mg tablet,disintegrating 4 mg PO Q8H PRN (Reason: nausea and vomiting) Qty: 20 0RF oxycodone 5 mg tablet 5 mg PO Q8H PRN (Reason: pain) Qty: 10 0RF ibuprofen 600 mg tablet 600 mg PO Q8H PRN (Reason: pain) Qty: 20 0RF ibuprofen 800 mg tablet 800 mg PO Q8H PRN (Reason: pain) Qty: 14 0RF ondansetron HCl [Zofran] 4 mg tablet 4 mg PO Q8H PRN (Reason: nausea and vomiting) Qty: 14 0RF acetaminophen [Tylenol Extra Strength] 500 mg tablet 1,000 mg PO QID PRN (Reason: fever or pain) Qty: 14 0RF doxycycline monohydrate 100 mg capsule 100 mg PO BID 10 Days Qty: 20 0RF oxycodone 5 mg tablet 5 mg PO BID PRN (Reason: pain) Qty: 10 0RF metronidazole [Flagyl] 500 mg tablet 500 mg PO BID 7 Days Qty: 14 0RF fluconazole [Diflucan] 150 mg tablet 150 mg PO Q3D Qty: 2 0RF Rx Instructions: may repeat second dose 72 hrs after first dose if symptoms persist ondansetron 4 mg tablet,disintegrating 4 mg PO Q6H PRN (Reason: nausea and vomiting) Qty: 10 0RF famotidine [Pepcid] 20 mg tablet 20 mg PO BID Qty: 14 0RF famotidine [Pepcid] 20 mg tablet 20 mg PO BID 20 Days Qty: 40 0RF Referrals: Zunilda Ignacio MD [Primary Care Provider] - 2 days
[2021-05-11 12:37] VITALS: BP 119/63; PULSE 70; RESP 14; O2SAT 98
[2021-05-11 12:40] LABS: MANUAL DIFF FLAG NO
[2021-05-11 12:42] LABS: Basophils Percent Auto 0.5 % (0-2); Eosinophils Absolute Auto 0.1 X10*3/uL (0.0-0.4); Eosinophils Percent Auto 0.8 % (0-4); Hematocrit 39.5 % (37.0-47.0); Hemoglobin 12.7 g/dl (12.0-16.0); Imm Gran Abs Auto 0.03 X10*3/uL (0.00-0.03); Imm Gran Pct Auto 0.4 % (0.0-0.4); Lymphocytes Absolute Auto 1.4 X10*3/uL (1.2-4.9); Mean Corpuscular HGB Conc 32.2 g/dl (31.0-35.0); Mean Corpuscular Volume 93.4 fL (80.0-98.0); Mean Platelet Volume 11.9 fL (9.4-12.3); Monocytes Absolute Auto 0.3 X10*3/uL (0.1-1.2); Monocytes Percent Auto 4.3 % (2-11); Neutrophils Absolute Auto 6.1 x10*3/uL (2.0-8.3); Platelet Count 181 X10*3/uL (160-400); Red Blood Count 4.23 X10*6/uL (4.20-5.50); Red Cell Distribution Width 13.4 % (11.0-16.0)
[2021-05-11] MEDS: ondansetron HCL 4 MG/2 ML VIAL IVPUSH (12:50)
[2021-05-11] MEDS: Ketorolac Tromethamine 15 MG/ML VIAL IVPUSH (12:50)
[2021-05-11] MEDS: 0.9 % Sodium Chloride 1,000 ML 999 ML IV ×2 (12:50)
[2021-05-11 12:56] LABS: COVID-19 Test Negative (Negative); IDNOW Serial# 16C4AD1C
[2021-05-11 12:57] LABS: Alanine Aminotransferase 20 U/L (0-31); Albumin Level 4.3 g/dL (3.5-5.0); Alkaline Phosphatase 64 U/L (39-117); Anion Gap 13 (12-20); Aspartate Amino Transferase 20 U/L (5-31); Bilirubin Direct 0.2 mg/dL (0.0-0.5); Bilirubin Total 0.6 mg/dL (0.0-1.0); Blood Urea Nitrogen 15 mg/dL (9-16); Calcium 9.3 mg/dL (8.4-10.2); Carbon Dioxide 19 mmol/L (22-29); Chloride 109 mmol/L (96-108); Creatinine Clr Calc Pharmacy 106.9; Estimated Glomerular Filt Rate > 60; Glucose Random 85 mg/dL (60-115); Lipase 7 U/L (8-78); Sodium 137 mmol/L (135-145); Total Protein 6.8 g/dL (6.5-8.0)
[2021-05-11 13:03] LABS: HCG Quantitative < 2 mIU/mL
[2021-05-11 13:16] LABS: Appearance Urine CLEAR; Color Urine YELLOW; Glucose Urine UA NEG (NEG); Leukocyte Esterase Urine NEG (NEG); Nitrite Urine NEG (NEG); PH 6.5 (5.0-8.0); Urine Blood NEG (NEG); Urine Ketones >=80 MG/DL (NEG); Urine Protein NEG (NEG-TRACE)
[2021-05-11 13:30] LABS: Bacteria Urine TRACE /LPF; Mucus Urine 1+ /LPF; RBC Urine 0-2 /HPF (0); Squamous Epithelial Cell Urine 2+ /LPF
[2021-05-11] MEDS: iohexoL 350 MG/ML 100 ML INFUS..BTL IV (13:41)
[2021-05-11 15:03] VITALS: BP 106/60; PULSE 69; RESP 16; O2SAT 98
== END 2021-05-11 16:18 | disposition home or self-care (01) ==
PROVIDERS: Emergency Provider Emergency Medicine Emergency Medical Services; PCP Internal Medicine
DX: K52.9 Noninfective gastroenteritis and colitis, unspecified (principal); Z20.822 Contact with and (suspected) exposure to COVID-19; R11.2 Nausea with vomiting, unspecified; R53.81 Other malaise; F12.90 Cannabis use, unspecified, uncomplicated
CPT/HCPCS: 36415; 74177; 80048; 80076; 81001; 83690; 84702; 85025; 87635; 96361; 96374; 96375; 99284; J1885; J2405; Q9967

== ENCOUNTER 2021-06-08 12:02 | Emergency (ER) | payer OTHER, SELFPAY ==
--- NOTE | ~2021-06-08 | XR_ITS ---
EXAMINATION: XR CHEST CLINICAL INFORMATION: 21rd female with chest tightness COMPARISON: 11/10/2020 TECHNIQUE: 2 views of the chest were obtained. FINDINGS: No significant abnormality is noted involving the heart, lungs, mediastinum, bony thorax or soft tissues. XR/XR chest 2V IMPRESSION: Unremarkable examination, without interval change.
--- NOTE | ~2021-06-08 | CT_ITS ---
EXAMINATION: CT ABDOMEN AND PELVIS WITH CONTRAST CLINICAL INFORMATION: Epigastric pain and vomiting COMPARISON: 05/11/2021 TECHNIQUE: Multidetector volumetric images were obtained from the superior aspect of the liver through the pubic symphysis following administration 85 mL of Omnipaque 350 intravenous contrast. Sagittal and coronal reformatted images were obtained on the technologist's workstation. Oral contrast: No This CT examination was performed using dose optimization techniques as appropriate, variously including the following: *Automated exposure control *Adjustment of mA and/or kV according to patient size (this includes techniques or standardized protocols for targeted exams where dose is matched to indication/reason for exam; i.e. extremities or head) *Use of iterative reconstruction technique DLP: 611 mGy-cm FINDINGS: LUNG BASES: The visualized lung bases are unremarkable. LIVER, GALLBLADDER, AND BILIARY TREE: The liver is normal in size, shape, and attenuation. No focal hepatic lesion or biliary ductal dilatation is present. The gallbladder is unremarkable with no evidence of radiopaque gallstones, gallbladder wall thickening, or obvious pericholecystic inflammatory changes. PANCREAS: Unremarkable. SPLEEN: Unremarkable. ADRENAL GLANDS: Unremarkable. KIDNEYS AND URETERS: The kidneys are normal in size, shape, and attenuation. No hydronephrosis, hydroureter, or calculi seen. No perinephric stranding. BLADDER: Unremarkable. GASTROINTESTINAL TRACT: The small and large bowel are unremarkable. The appendix is unremarkable. ABDOMINAL WALL: No significant hernia is appreciated. LYMPH NODES: Normal. VASCULAR: Unremarkable. PELVIC VISCERA: There is simple 3.9 x 3.8 cm cyst in left adnexa and there is deflated cyst measured 1.4 cm in the right adnexa and there is no fluid in cul-de-sac. OSSEOUS STRUCTURES: Unremarkable. CT/CT abdomen pelvis w con IMPRESSION: Large left ovarian cyst. Small deflated corpus luteum cyst in the right ovary. Fleischner guidelines were followed.
[2021-06-08 12:06] VITALS: BP 120/80; BP 121/80; PULSE 76; PULSE 96; RESP 16; TEMP 36.9; O2SAT 98; O2SAT 99
--- NOTE | 2021-06-08 12:36 | ED.NAVMDI ---
HPI - Nausea/Vomiting/Diarrhea General Chief complaint: Nausea/Vomiting/Diarrhea Stated complaint: N/V Time Seen by Provider: 06/08/21 12:23 Source: patient Mode of arrival: ambulatory Limitations: no limitations History of Present Illness HPI Narrative: 26-year-old female here for chest tightness and vomiting and diarrhea. Her chest tightness started 2 days ago. She has a history of asthma. She took a nebulizer yesterday but it did not help. She has had a dry cough and a fever of 102 at home yesterday. She has severe body aches. She has a sore throat. States that this morning at 08:00 she vomited multiple times and had multiple episodes of diarrhea. She tried to take ibuprofen but cannot keep anything down without vomiting. Last menstrual period was May 14, patient is not sexually active with men only with women. States she drinks alcohol occasionally but did not drink prior to her symptoms. States she does not usually take a lot of NSAIDs. No prior abdominal surgeries. States she does smoke marijuana several times a day usually daily. No marijuana today or yesterday due to her feeling ill. Associated nausea: Yes Related Data Previous Rx's Medication Instructions Recorded ondansetron 4 mg disintegrating 4 mg PO Q8H PRN #20 tab 02/01/20 tablet ibuprofen 600 mg tablet 600 mg PO Q8H PRN #20 tab 03/18/20 oxycodone 5 mg tablet 5 mg PO Q8H PRN #10 tab 03/18/20 acetaminophen 500 mg tablet 1,000 mg PO QID PRN #14 tab 09/29/20 (Tylenol Extra Strength) doxycycline monohydrate 100 mg 100 mg PO BID 10 Days #20 cap 09/29/20 capsule fluconazole 150 mg tablet 150 mg PO Q3D #2 tab 09/29/20 (Diflucan) ibuprofen 800 mg tablet 800 mg PO Q8H PRN #14 tab 09/29/20 metronidazole 500 mg tablet 500 mg PO BID 7 Days #14 tab 09/29/20 (Flagyl) ondansetron HCl 4 mg tablet 4 mg PO Q8H PRN #14 tab 09/29/20 (Zofran) oxycodone 5 mg tablet 5 mg PO BID PRN #10 tab 09/29/20 famotidine 20 mg tablet (Pepcid) 20 mg PO BID #14 tab 11/10/20 ondansetron 4 mg disintegrating 4 mg PO Q6H PRN #10 tab 11/10/20 tablet famotidine 20 mg tablet (Pepcid) 20 mg PO BID 20 Days #40 tab 11/30/20 ondansetron 4 mg disintegrating 4 mg PO TID PRN 5 Days #10 tab 05/11/21 tablet albuterol sulfate 90 mcg/actuation 2 puff INHALATION Q4-6H PRN #6.7 g 06/08/21 aerosol inhaler ondansetron 4 mg disintegrating 4 mg PO Q8H PRN #9 tab 06/08/21 tablet prednisone 20 mg tablet 60 mg PO DAILY 5 Days #15 tab 06/08/21 Allergies Allergy/AdvReac Type Severity Reaction Status Date / Time No Known Allergies Allergy Unverified 11/10/19 16:17 [No Known Allergies*] Review of Systems Constitutional: Constitutional: Reports body ache(s), Reports chills, Reports fatigue, Reports fever(s), Denies headache(s), Reports malaise and Denies weakness Eyes: Eyes: Denies diplopia ENT: Denies vertigo, Denies dizziness, Denies otalgia, Denies headache(s), Reports mouth pain, Denies post nasal drip, Denies sinus pain, Denies sinus pressure and Reports sore throat Cardiovascular: Cardiovascular: Reports chest pain, Denies syncope, Denies leg edema, Denies lightheadedness, Denies Loss of Consciousness, Denies palpitations and Denies dyspnea Respiratory: Respiratory: Denies chest congestion, Denies cough and Denies dyspnea Gastrointestinal: Gastrointestinal: Reports abdominal pain, Denies melena, Denies hematochezia, Denies coffee ground emesis, Denies constipation, Denies fecal incontinence, Reports diarrhea, Reports nausea and Reports vomiting Genitourinary: Genitourinary: Denies dysuria, Denies urinary incontinence, Denies urinary urgency and Denies vaginal discharge Musculoskeletal: Musculoskeletal: Reports myalgias Integumentary/Breasts: Skin/Breast: Denies rash Neurologic: Denies confusion, Denies vertigo, Denies dizziness, Denies syncope, Denies headache(s) and Denies weakness Psychiatric: Psychiatric: Reports anxiety, Denies confusion and Denies depression Endocrine: Endocrine: Reports fatigue and Denies palpitations PMFSH Past Medical History Medical History No active medical problems Social History Social History Alcohol intake: current Alcohol intake frequency: holidays/special occasions only Patient Tobacco Use Status: Never used Tobacco Use of substances other than those prescribed or required for medical reasons: Yes Substance Use Type: Marijuana Substance Use Frequency: Daily Advance Directives: No Advance Directives Information Provided: No Patient : No Physical Exam Vital Signs: Vital Signs: Last Vital Signs Temp 97.8 F 06/08/21 16:00 Pulse 70 06/08/21 16:00 Resp 16 06/08/21 16:00 BP 108/59 L 06/08/21 16:00 Pulse Ox 99 06/08/21 16:00 BMI result Body Mass Index 0.3 Const: General: No confusion Nutritional Appearance: well nourished Orientation/consciousness: No confusion Limitations: no limitations HEENT: Head: Yes normal to inspection, Yes normocephalic and Yes atraumatic Ears: hearing grossly normal bilaterally, external ears normal, TM's normal bilaterally and EAC's normal General nose exam: Normal external nose present Face and sinus: Yes normal facial exam and Yes sinuses nontender Mouth: Normal oral and palatal mucosa present Throat: Yes posterior oropharynx normal Eyes: Conjunctivae: conjunctivae normal Pupils: Equal, round and reactive pupils present EOM: EOMs intact bilaterally Neck: Neck: Yes full ROM, Yes no lymphadenopathy and Yes supple Resp: Effort & Inspection: normal respiratory effort and able to speak in complete sentences Auscultation: no crackles, no rales, rhonchi throughout and wheezes throughout Cardio: Rate: regular rate Rhythm: regular rhythm Heart sounds: S1 normal heart sound present and S2 normal heart sound present GI: Inspection: Yes normal to inspection Palpation (GI): Soft to palpation, Tenderness to palpation present (GI) in the epigastrum, in the LUQ and in the RUQ, Guarding due to palpation present (GI) in the LUQ, in the RUQ and other (epigastrium) and not rigid Percussion: Yes normal to percussion Auscultation: normal bowel sounds Skin: General skin exam: no rashes or lesions noted Neuro: General: No confusion Cranial nerves: Yes Equal, round and reactive pupils present Extrem: General: Yes normal to inspection and Yes full ROM Psych: Appearance: grossly normal Affect: normal affect Attitude: cooperative Thought process: Normal thought process present Course Course Course Narrative: 12:40 26-year-old female presents with 2 days of chest tightness and vomiting and diarrhea that started this morning. On exam, patient has coarse and wheezy lung alvarenga, she is tearful and complaining of pain. Vitals are stable. She has epigastric tenderness and guarding and upper right quadrant upper left quadrant tenderness. Because of reported fever will get COVID and flu, will get chest x-ray albuterol inhaler EKG and troponin for chest tightness. Patient scores a 0 on the Wells score for pulmonary embolism. Will get labs and lipase, urine, magnesium, CT abdomen pelvis. Will give fluids, Zofran, morphine. Reevaluation(s) Reevaluation #1: CT/CT abdomen pelvis w con IMPRESSION: Large left ovarian cyst. Small deflated corpus luteum cyst in the right ovary.? Labs and urine are otherwise unremarkable, all patients swab including COVID, flu, strep were negative. EKG shows no acute ischemia, troponin is negative, patient has been having chest pain for the last 2 days. On exam, patient is still wheezy and rhonchorous, after her nebulizer treatment, although she is moving more air Chest x-ray is unremarkable urine Will send home with albuterol inhaler, prednisone, Zofran for nausea. Gave return precautions of worsening chest pain, worsening vomiting, shortness of breath, or any new or concerning symptoms Patient verbalized agreement understanding of the plan MDM - Nausea/Vomiting/Diarrhea Lab Data Result diagrams: 06/08/21 13:03 06/08/21 13:32 Labs: Lab Results 06/08/21 06/08/21 06/08/21 Range/Units 13:03 13:03 13:32 WBC 7.2 (4.8-10.8) X10*3/uL RBC 4.45 (4.20-5.50) X10*6/uL Hgb 13.3 (12.0-16.0) g/dl Hct 41.2 (37.0-47.0) % MCV 92.6 (80.0-98.0) fL MCH 29.9 (27.0-33.0) pg MCHC 32.3 (31.0-35.0) g/dl RDW 13.2 (11.0-16.0) % Plt Count 197 (160-400) X10*3/uL MPV 12.3 (9.4-12.3) fL Immature Gran % (Auto) 0.7 H (0.0-0.4) % Neut % (Auto) 79.9 H (45-73) % Lymph % (Auto) 13.2 L (20-40) % [place] % (Auto) 5.2 (2-11) % Eos % (Auto) 0.6 (0-4) % Baso % (Auto) 0.4 (0-2) % Lymph # (Auto) 1.0 L (1.2-4.9) X10*3/uL [place] # (Auto) 0.4 (0.1-1.2) X10*3/uL Eos # (Auto) 0.0 (0.0-0.4) X10*3/uL Baso # (Auto) 0.0 (0.0-0.2) X10*3/uL Abs Immat Gran (auto) 0.05 H (0.00-0.03) X10*3/uL Absolute Neuts (auto) 5.7 (2.0-8.3) x10*3/uL Absolute Nucleated RBC 0.000 (0.0-0.012) X10*3/uL Nucleated RBC % (auto) 0.0 (0.0-0.2) /100WBC Sodium 139 (135-145) mmol/L Potassium 4.2 (3.3-5.1) mmol/L Chloride 107 (96-108) mmol/L Carbon Dioxide 23 (22-29) mmol/L Anion Gap 13 (12-20) BUN 13 (9-16) mg/dL Creatinine 0.71 (0.5-1.4) mg/dL Estim Creat Clear Calc 141.0 Estimated GFR > 60 Random Glucose 97 (60-115) mg/dL Calcium 8.8 (8.4-10.2) mg/dL Magnesium 1.6 (1.6-2.6) mg/dL Total Bilirubin 0.3 (0.0-1.0) mg/dL AST 20 (5-31) U/L ALT 23 (0-31) U/L Alkaline Phosphatase 68 (39-117) U/L Troponin I High Sens < 3.5 (<3.5-17.0) ng/L Total Protein 6.8 (6.5-8.0) g/dL Albumin 4.2 (3.5-5.0) g/dL Lipase 13 (8-78) U/L Beta HCG, Quant < 2 mIU/mL Urine Color Urine Appearance Urine pH (5.0-8.0) Ur Specific [place] (1.005-1.025) Urine Protein (NEG-TRACE) MG/DL Urine Glucose (UA) (NEG) MG/DL Urine Ketones (NEG) MG/DL Urine Blood (NEG) Urine Nitrite (NEG) Ur Leukocyte Esterase (NEG) Urine Test (NEGATIVE) COVID-19 (SMILEY) (Negative) COVID-19 Clin Com Influenza Type A (NATHALIA) (Negative) Influenza Type B (NATHALIA) (Negative) Influenza A & B Note S. pyogenes GrpA NATHALIA (Negative) 06/08/21 06/08/21 06/08/21 Range/Units 13:32 13:32 14:56 WBC (4.8-10.8) X10*3/uL RBC (4.20-5.50) X10*6/uL Hgb (12.0-16.0) g/dl Hct (37.0-47.0) % MCV (80.0-98.0) fL MCH (27.0-33.0) pg MCHC (31.0-35.0) g/dl RDW (11.0-16.0) % Plt Count (160-400) X10*3/uL MPV (9.4-12.3) fL Immature Gran % (Auto) (0.0-0.4) % Neut % (Auto) (45-73) % Lymph % (Auto) (20-40) % [place] % (Auto) (2-11) % Eos % (Auto) (0-4) % Baso % (Auto) (0-2) % Lymph # (Auto) (1.2-4.9) X10*3/uL [place] # (Auto) (0.1-1.2) X10*3/uL Eos # (Auto) (0.0-0.4) X10*3/uL Baso # (Auto) (0.0-0.2) X10*3/uL Abs Immat Gran (auto) (0.00-0.03) X10*3/uL Absolute Neuts (auto) (2.0-8.3) x10*3/uL Absolute Nucleated RBC (0.0-0.012) X10*3/uL Nucleated RBC % (auto) (0.0-0.2) /100WBC Sodium (135-145) mmol/L Potassium (3.3-5.1) mmol/L Chloride (96-108) mmol/L Carbon Dioxide (22-29) mmol/L Anion Gap (12-20) BUN (9-16) mg/dL Creatinine (0.5-1.4) mg/dL Estim Creat Clear Calc Estimated GFR Random Glucose (60-115) mg/dL Calcium (8.4-10.2) mg/dL Magnesium (1.6-2.6) mg/dL Total Bilirubin (0.0-1.0) mg/dL AST (5-31) U/L ALT (0-31) U/L Alkaline Phosphatase (39-117) U/L Troponin I High Sens (<3.5-17.0) ng/L Total Protein (6.5-8.0) g/dL Albumin (3.5-5.0) g/dL Lipase (8-78) U/L Beta HCG, Quant mIU/mL Urine Color Urine Appearance Urine pH (5.0-8.0) Ur Specific [place] (1.005-1.025) Urine Protein (NEG-TRACE) MG/DL Urine Glucose (UA) (NEG) MG/DL Urine Ketones (NEG) MG/DL Urine Blood (NEG) Urine Nitrite (NEG) Ur Leukocyte Esterase (NEG) Urine Test (NEGATIVE) COVID-19 (SMILEY) Negative (Negative) COVID-19 Clin Com See Note Influenza Type A (NATHALIA) Negative (Negative) Influenza Type B (NATHALIA) Negative (Negative) Influenza A & B Note See Note S. pyogenes GrpA NATHALIA Negative (Negative) 06/08/21 06/08/21 Range/Units 14:56 14:56 WBC (4.8-10.8) X10*3/uL RBC (4.20-5.50) X10*6/uL Hgb (12.0-16.0) g/dl Hct (37.0-47.0) % MCV (80.0-98.0) fL MCH (27.0-33.0) pg MCHC (31.0-35.0) g/dl RDW (11.0-16.0) % Plt Count (160-400) X10*3/uL MPV (9.4-12.3) fL Immature Gran % (Auto) (0.0-0.4) % Neut % (Auto) (45-73) % Lymph % (Auto) (20-40) % [place] % (Auto) (2-11) % Eos % (Auto) (0-4) % Baso % (Auto) (0-2) % Lymph # (Auto) (1.2-4.9) X10*3/uL [place] # (Auto) (0.1-1.2) X10*3/uL Eos # (Auto) (0.0-0.4) X10*3/uL Baso # (Auto) (0.0-0.2) X10*3/uL Abs Immat Gran (auto) (0.00-0.03) X10*3/uL Absolute Neuts (auto) (2.0-8.3) x10*3/uL Absolute Nucleated RBC (0.0-0.012) X10*3/uL Nucleated RBC % (auto) (0.0-0.2) /100WBC Sodium (135-145) mmol/L Potassium (3.3-5.1) mmol/L Chloride (96-108) mmol/L Carbon Dioxide (22-29) mmol/L Anion Gap (12-20) BUN (9-16) mg/dL Creatinine (0.5-1.4) mg/dL Estim Creat Clear Calc Estimated GFR Random Glucose (60-115) mg/dL Calcium (8.4-10.2) mg/dL Magnesium (1.6-2.6) mg/dL Total Bilirubin (0.0-1.0) mg/dL AST (5-31) U/L ALT (0-31) U/L Alkaline Phosphatase (39-117) U/L Troponin I High Sens (<3.5-17.0) ng/L Total Protein (6.5-8.0) g/dL Albumin (3.5-5.0) g/dL Lipase (8-78) U/L Beta HCG, Quant mIU/mL Urine Color YELLOW Urine Appearance CLEAR Urine pH 7.0 (5.0-8.0) Ur Specific [place] 1.015 (1.005-1.025) Urine Protein NEG (NEG-TRACE) MG/DL Urine Glucose (UA) NEG (NEG) MG/DL Urine Ketones 5 (NEG) MG/DL Urine Blood NEG (NEG) Urine Nitrite NEG (NEG) Ur Leukocyte Esterase NEG (NEG) Urine Test NEGATIVE (NEGATIVE) COVID-19 (SMILEY) (Negative) COVID-19 Clin Com Influenza Type A (NATHALIA) (Negative) Influenza Type B (NATHALIA) (Negative) Influenza A & B Note S. pyogenes GrpA NATHALIA (Negative) Discharge Plan Discharge Clinical Impression: Upper respiratory infection, viral, Acute bronchospasm Patient Disposition: Home, Self-Care Instructions: Upper Respiratory Infection (ED) Additional Instructions: Please fill the prescriptions as prescribed. Please take Zofran as needed for nausea, please use your albuterol inhaler, 2 puffs every 4 hours while your wake, please take her prednisone in the morning. If you have worsening chest pain, shortness of breath, or any other new or concerning symptoms, please return to emergency room. Prescriptions: New prednisone 20 mg tablet 60 mg PO DAILY 5 Days Qty: 15 0RF albuterol sulfate 90 mcg/actuation HFA aerosol inhaler 2 puff inhalation Q4-6H PRN (Reason: shortness of breath or wheezing) Qty: 6.7 0RF ondansetron 4 mg tablet,disintegrating 4 mg PO Q8H PRN (Reason: nausea and vomiting) Qty: 9 0RF No Action ondansetron 4 mg tablet,disintegrating 4 mg PO Q8H PRN (Reason: nausea and vomiting) Qty: 20 0RF oxycodone 5 mg tablet 5 mg PO Q8H PRN (Reason: pain) Qty: 10 0RF ibuprofen 600 mg tablet 600 mg PO Q8H PRN (Reason: pain) Qty: 20 0RF ibuprofen 800 mg tablet 800 mg PO Q8H PRN (Reason: pain) Qty: 14 0RF ondansetron HCl [Zofran] 4 mg tablet 4 mg PO Q8H PRN (Reason: nausea and vomiting) Qty: 14 0RF acetaminophen [Tylenol Extra Strength] 500 mg tablet 1,000 mg PO QID PRN (Reason: fever or pain) Qty: 14 0RF doxycycline monohydrate 100 mg capsule 100 mg PO BID 10 Days Qty: 20 0RF oxycodone 5 mg tablet 5 mg PO BID PRN (Reason: pain) Qty: 10 0RF metronidazole [Flagyl] 500 mg tablet 500 mg PO BID 7 Days Qty: 14 0RF fluconazole [Diflucan] 150 mg tablet 150 mg PO Q3D Qty: 2 0RF Rx Instructions: may repeat second dose 72 hrs after first dose if symptoms persist ondansetron 4 mg tablet,disintegrating 4 mg PO Q6H PRN (Reason: nausea and vomiting) Qty: 10 0RF famotidine [Pepcid] 20 mg tablet 20 mg PO BID Qty: 14 0RF ondansetron 4 mg tablet,disintegrating 4 mg PO TID PRN (Reason: nausea and vomiting) 5 Days Qty: 10 0RF famotidine [Pepcid] 20 mg tablet 20 mg PO BID 20 Days Qty: 40 0RF
--- NOTE | 2021-06-08 12:37 | ECG_ITS ---
Test Reason : CHEST PAIN Blood Pressure : / mmHG Vent. Rate : 078 BPM Atrial Rate : 078 BPM P-R Int : 126 ms QRS Dur : 076 ms QT Int : 400 ms P-R-T Axes : 036 058 028 degrees QTc Int : 456 ms Normal sinus rhythm Normal ECG When compared with ECG of 10-NOV-2020 17:32, No significant change was found Referred By: Eileen Avendano Electronically Signed By:Mitch Mera
[2021-06-08 12:53] VITALS: PULSE 80; RESP 20; O2SAT 100
[2021-06-08] MEDS: Albuterol Sulfate 90 MCG 8 GM INHALER 2 PUFF INHALE (12:53)
[2021-06-08 13:07] LABS: MANUAL DIFF FLAG NO
[2021-06-08] MEDS: Morphine Sulfate 4 MG/ML CARTRIDGE IVPUSH (13:11)
[2021-06-08] MEDS: 0.9 % Sodium Chloride 1,000 ML 999 ML IV (13:11)
[2021-06-08] MEDS: ondansetron HCL 4 MG/2 ML VIAL IVPUSH (13:11)
[2021-06-08 13:22] LABS: Basophils Percent Auto 0.4 % (0-2); Eosinophils Percent Auto 0.6 % (0-4); Hematocrit 41.2 % (37.0-47.0); Hemoglobin 13.3 g/dl (12.0-16.0); Imm Gran Abs Auto 0.05 X10*3/uL (0.00-0.03); Imm Gran Pct Auto 0.7 % (0.0-0.4); Lymphocytes Percent Auto 13.2 % (20-40); Mean Corpuscular HGB Conc 32.3 g/dl (31.0-35.0); Mean Corpuscular Hemoglobin 29.9 pg (27.0-33.0); Mean Corpuscular Volume 92.6 fL (80.0-98.0); Mean Platelet Volume 12.3 fL (9.4-12.3); Monocytes Absolute Auto 0.4 X10*3/uL (0.1-1.2); Monocytes Percent Auto 5.2 % (2-11); Neutrophils Absolute Auto 5.7 x10*3/uL (2.0-8.3); Neutrophils Percent Auto 79.9 % (45-73); Platelet Count 197 X10*3/uL (160-400); Red Blood Count 4.45 X10*6/uL (4.20-5.50); Red Cell Distribution Width 13.2 % (11.0-16.0); White Blood Count 7.2 X10*3/uL (4.8-10.8)
[2021-06-08 13:34] LABS: Troponin-I High Sensitivity < 3.5 ng/L (<3.5-17.0)
[2021-06-08 14:00] LABS: Alanine Aminotransferase 23 U/L (0-31); Albumin Level 4.2 g/dL (3.5-5.0); Alkaline Phosphatase 68 U/L (39-117); Anion Gap 13 (12-20); Aspartate Amino Transferase 20 U/L (5-31); Bilirubin Total 0.3 mg/dL (0.0-1.0); Blood Urea Nitrogen 13 mg/dL (9-16); COVID-19 Test Negative (Negative); Calcium 8.8 mg/dL (8.4-10.2); Carbon Dioxide 23 mmol/L (22-29); Chloride 107 mmol/L (96-108); Estimated Glomerular Filt Rate > 60; Glucose Random 97 mg/dL (60-115); Lipase 13 U/L (8-78); Magnesium 1.6 mg/dL (1.6-2.6); Potassium 4.2 mmol/L (3.3-5.1); Sodium 139 mmol/L (135-145); Total Protein 6.8 g/dL (6.5-8.0)
[2021-06-08 14:05] LABS: IDNOW Serial# 08D9AD1C; Influenza A Negative (Negative); Influenza B2 Negative (Negative)
[2021-06-08 14:06] LABS: HCG Quantitative < 2 mIU/mL
[2021-06-08 14:53] VITALS: PULSE 73; RESP 14
[2021-06-08 15:10] LABS: UPreg QC Valid YES; Urine Pregnancy NEGATIVE (NEGATIVE)
[2021-06-08] MEDS: iohexoL 350 MG/ML 100 ML INFUS..BTL IV (15:12)
[2021-06-08 15:21] LABS: Strep A Nucleic Acid Negative (Negative)
[2021-06-08 15:36] LABS: Appearance Urine CLEAR; Color Urine YELLOW; Glucose Urine UA NEG (NEG); Leukocyte Esterase Urine NEG (NEG); Nitrite Urine NEG (NEG); Specific Gravity - Urine 1.015 (1.005-1.025); Urine Blood NEG (NEG); Urine Ketones 5 MG/DL (NEG); Urine Protein NEG (NEG-TRACE)
[2021-06-08 16:00] VITALS: BP 108/59; PULSE 70; RESP 16; TEMP 36.6; O2SAT 99
== END 2021-06-08 17:58 | disposition home or self-care (01) ==
PROVIDERS: Physician Assistant; Emergency Provider Emergency Medicine
DX: J06.9 Acute upper respiratory infection, unspecified (principal); J98.01 Acute bronchospasm; J45.909 Unspecified asthma, uncomplicated; F12.90 Cannabis use, unspecified, uncomplicated; N83.202 Unspecified ovarian cyst, left side; Z20.822 Contact with and (suspected) exposure to COVID-19
CPT/HCPCS: 36415; 71046; 74177; 80053; 81003; 81025; 83690; 83735; 84484; 84702; 85025; 87502; 87635; 87651; 93005; 94640; 94664; 96361; 96374; 96375; 99284; J2270; J2405; Q9967

== ENCOUNTER 2021-08-17 15:40 | Emergency (ER) | payer OTHER, SELFPAY ==
[2021-08-17 15:56] VITALS: BP 121/72; PULSE 74; RESP 18; TEMP 36.4; O2SAT 98; BMI 32.1
--- NOTE | 2021-08-17 16:06 | ED_ITS ---
HPI - Nausea/Vomiting/Diarrhea General Chief complaint: Nausea/Vomiting/Diarrhea Stated complaint: flu like symptoms Time Seen by Provider: 08/17/21 16:06 Source: patient and EMS Mode of arrival: EMS Limitations: no limitations History of Present Illness HPI Narrative: Patient is a 26 year old female presenting to the emergency department today with nausea and vomiting. Patient states that she hasn't felt well and has taken negative COVID-19 tests at home. Patient states that she normally smokes mar ijuana but has not been able to as of lately. Patient denies any dizziness, lightheadedness, abdominal pain, fever, chills, blurry vision, double vision, loss of vision, chest pain, difficulty breathing, shortness of breath, back pain, night sweats, pain with urination, increased urinary frequency, increased urinary urgency, blood in her urine or stool, syncope or a near syncopal episode, recent trauma or falls, bowel incontinence, bladder incontinence, bowel retention, bladder retention, or any other complaints at this time. MD elicited complaint: nausea and vomiting Onset (ago): day(s) Associated nausea: Yes Associated abdominal pain: No Location of pain: none Exacerbating factors: none Relieving factors: none Associated symptoms: nausea/vomiting Related Data Previous Rx's Medication Instructions Recorded ibuprofen 600 mg tablet 600 mg PO Q8H PRN pain #20 tabs 03/18/20 acetaminophen 500 mg tablet 1,000 mg PO QID PRN fever or pain 09/29/20 (Tylenol Extra Strength) #14 tabs doxycycline monohydrate 100 mg 100 mg PO BID 10 days #20 caps 09/29/20 capsule fluconazole 150 mg tablet 150 mg PO Q3D Candidiasis 2 doses 09/29/20 (Diflucan) #2 tabs metronidazole 500 mg tablet 500 mg PO BID 7 days #14 tabs 09/29/20 (Flagyl) famotidine 20 mg tablet (Pepcid) 20 mg PO BID 20 days #40 tabs 11/30/20 albuterol sulfate 90 mcg/actuation 2 puff inhalation Q4-6H PRN 06/08/21 aerosol inhaler shortness of breath or wheezing #6.7 grams prednisone 20 mg tablet 60 mg PO DAILY 5 days #15 tabs 06/08/21 ondansetron 4 mg disintegrating 4 mg PO Q8H 3 days #9 tabs 08/17/21 tablet Allergies Allergy/AdvReac Type Severity Reaction Status Date / Time No Known Allergies Allergy Unverified 11/10/19 16:17 [No Known Allergies*] Review of Systems Constitutional: Constitutional: Reports no additional constitutional complaints, Denies chills, Denies fever(s) and Denies night sweats Eyes: Eyes: Reports no additional eye complaints, Denies blurry vision, Denies change in vision, Denies diplopia, Denies eye discharge, Denies loss of vision and Denies eye pain ENT: Denies dizziness Cardiovascular: Cardiovascular: Reports no additional cardiovascular complaints, Denies chest pain, Denies lightheadedness, Denies Loss of Consciousness and Denies dyspnea Respiratory: Respiratory: Reports no additional respiratory complaints and Denies dyspnea Gastrointestinal: Gastrointestinal: Reports nausea and Reports vomiting Genitourinary: Genitourinary: Denies hematuria, Denies urinary frequency, Denies dysuria, Denies urinary incontinence, Denies urinary hesitancy and Denies urinary urgency Musculoskeletal: Musculoskeletal: Reports no additional musculoskeletal complaints, Denies numbness and Denies tingling Neurologic: Denies dizziness, Denies loss of vision, Denies numbness and Denies tingling Psychiatric: Psychiatric: Reports no additional psychiatric complaints Endocrine: Endocrine: Reports no additional endocrine complaints Hematologic/Lymphatic: Hematologic/Lymphatic: Reports no additional hematologic/lymphatic complaints Allergic/Immunologic: Allergic/Immunologic: Reports no additional allergic/immunologic complaints COUNTS INCLUDE 234 BEDS AT THE [facility] Past Medical History Attestation statement: The following information was validated with the patient. Source: old records reviewed Medical History No active medical problems Social History Social History Alcohol intake: current Alcohol intake frequency: holidays/special occasions only Patient Tobacco Use Status: Never used Tobacco Substance Use Type: Marijuana Advance Directives: No Advance Directives Information Provided: No Physical Exam Vital Signs: Vital Signs: Last Vital Signs Temp 97.3 F 08/17/21 17:43 Pulse 72 08/17/21 17:43 Resp 16 08/17/21 17:43 BP 92/56 L 08/17/21 17:43 Pulse Ox 96 08/17/21 17:43 O2 Del Method 08/17/21 17:43 BMI result Body Mass Index 32.1 Const: General: cooperative, no acute distress, alert and awake Nutritional Appearance: well nourished Orientation/consciousness: patient oriented x3 Limitations: no limitations HEENT: Head: Yes normal to inspection and Yes atraumatic Ears: hearing grossly normal bilaterally and external ears normal General nose exam: Normal external nose present, no nasal discharge noted and no epistaxis Face and sinus: Yes normal facial exam, No abrasion and No laceration Mouth: Normal oral and palatal mucosa present, no drooling and no muffled voice Eyes: General: appearance normal, both eyes and all related structures Periorbital: periorbital findings normal Eyelids: Yes eyelids normal Conjunctivae: conjunctivae normal Pupils: Equal, round and reactive pupils present EOM: EOMs intact bilaterally Neck: Neck: Yes normal visual inspection, Yes full ROM and Yes no lymphadenopathy Chest: Chest palpation & inspection: normal inspection of the chest Resp: Effort & Inspection: normal respiratory effort and able to speak in complete sentences Auscultation: clear to auscultation bilaterally Cardio: Rate: regular rate Rhythm: regular rhythm GI: Inspection: Yes normal to inspection Palpation (GI): Soft to palpation, not firm, nontender and no guarding Neuro: General: patient oriented x3 and moves all extremities Cranial nerves: Yes Equal, round and reactive pupils present Cognition (Neuro): normal cognition Motor exam (neuro): 5/5 motor strength present throughout Sensory Exam: Normal double simultaneous stimulation for sensation Coordination: [id number] test normal Extrem: General: Yes normal to inspection, Yes full ROM and Yes capillary refill normal Psych: Appearance: grossly normal Mental Status: mental status grossly normal Affect: normal affect Attitude: cooperative Thought process: Normal thought process present Thought content: Normal thought content present Insight: Good insight present (Psych) MDM - Nausea/Vomiting/Diarrhea MDM Narrative Medical decision making narrative: Patient is a 26 year old female presenting to the emergency department today with nausea and vomiting. Patient's physical exam was unremarkable. Patient's blood work was unremarkable. I explained my physical exam findings as well as all test results to the patient. I answered all questions asked by the patient. Patient received IM Haldol and IV fluids which she stated helped her symptoms significantly. Patient was able to tolerate PO fluids and food in the department. I stressed the importance of the patient taking her medication as prescribed. I stressed the importance of the patient following up with her primary care provider. I stressed the importance of the patient returning to the emergency department immediately if her symptoms were to worsen or if she were to develop any dizziness, shortness of breath, difficulty breathing, chest pain, blurry vision, loss of vision, nausea, vomiting, abdominal pain, fever, chills, back pain, or any other complaints. Patient verbalized agreement and understanding with this treatment plan and discharge. Differential Diagnosis Differential diagnosis: Likely gastroenteritis and dehydration Medical Records Attestation: I reviewed the patient's medical records. Lab Data Attestation: I reviewed the patient's lab results. Result diagrams: 08/17/21 16:30 08/17/21 16:30 Labs: Lab Results 08/17/21 08/17/21 08/17/21 Range/Units 16:30 16:30 16:30 WBC 7.1 (4.8-10.8) X10*3/uL RBC 4.53 (4.20-5.50) X10*6/uL Hgb 13.5 (12.0-16.0) g/dl Hct 41.5 (37.0-47.0) % MCV 91.6 (80.0-98.0) fL MCH 29.8 (27.0-33.0) pg MCHC 32.5 (31.0-35.0) g/dl RDW 13.4 (11.0-16.0) % Plt Count 217 (160-400) X10*3/uL MPV 11.6 (9.4-12.3) fL Immature Gran % (Auto) 0.4 (0.0-0.4) % Neut % (Auto) 85.7 H (45-73) % Lymph % (Auto) 10.0 L (20-40) % [place] % (Auto) 3.5 (2-11) % Eos % (Auto) 0.0 (0-4) % Baso % (Auto) 0.4 (0-2) % Lymph # (Auto) 0.7 L (1.2-4.9) X10*3/uL [place] # (Auto) 0.3 (0.1-1.2) X10*3/uL Eos # (Auto) 0.0 (0.0-0.4) X10*3/uL Baso # (Auto) 0.0 (0.0-0.2) X10*3/uL Abs Immat Gran (auto) 0.03 (0.00-0.03) X10*3/uL Absolute Neuts (auto) 6.1 (2.0-8.3) x10*3/uL Absolute Nucleated RBC 0.000 (0.0-0.012) X10*3/uL Nucleated RBC % (auto) 0.0 (0.0-0.2) /100WBC Sodium 141 (135-145) mmol/L Potassium 3.9 (3.3-5.1) mmol/L Chloride 109 H (96-108) mmol/L Carbon Dioxide 21 L (22-29) mmol/L Anion Gap 15 (12-20) BUN 17 H (9-16) mg/dL Creatinine 0.77 (0.5-1.4) mg/dL Estim Creat Clear Calc 102.2 Estimated GFR > 60 Random Glucose 106 (60-115) mg/dL Calcium 9.4 D (8.4-10.2) mg/dL Magnesium 1.7 (1.6-2.6) mg/dL Total Bilirubin 0.4 (0.0-1.0) mg/dL AST 30 D (5-31) U/L ALT 36 H (0-31) U/L Alkaline Phosphatase 74 (39-117) U/L Total Protein 7.7 (6.5-8.0) g/dL Albumin 4.8 (3.5-5.0) g/dL Beta HCG, Quant < 2 mIU/mL COVID-19 ([facility]) (Negative) COVID-19 Clin Com Influenza Type A ([facility]) Negative (Negative) Influenza Type B ([facility]) Negative (Negative) Influenza A & B Note See Note 08/17/21 Range/Units 16:30 WBC (4.8-10.8) X10*3/uL RBC (4.20-5.50) X10*6/uL Hgb (12.0-16.0) g/dl Hct (37.0-47.0) % MCV (80.0-98.0) fL MCH (27.0-33.0) pg MCHC (31.0-35.0) g/dl RDW (11.0-16.0) % Plt Count (160-400) X10*3/uL MPV (9.4-12.3) fL Immature Gran % (Auto) (0.0-0.4) % Neut % (Auto) (45-73) % Lymph % (Auto) (20-40) % [place] % (Auto) (2-11) % Eos % (Auto) (0-4) % Baso % (Auto) (0-2) % Lymph # (Auto) (1.2-4.9) X10*3/uL [place] # (Auto) (0.1-1.2) X10*3/uL Eos # (Auto) (0.0-0.4) X10*3/uL Baso # (Auto) (0.0-0.2) X10*3/uL Abs Immat Gran (auto) (0.00-0.03) X10*3/uL Absolute Neuts (auto) (2.0-8.3) x10*3/uL Absolute Nucleated RBC (0.0-0.012) X10*3/uL Nucleated RBC % (auto) (0.0-0.2) /100WBC Sodium (135-145) mmol/L Potassium (3.3-5.1) mmol/L Chloride (96-108) mmol/L Carbon Dioxide (22-29) mmol/L Anion Gap (12-20) BUN (9-16) mg/dL Creatinine (0.5-1.4) mg/dL Estim Creat Clear Calc Estimated GFR Random Glucose (60-115) mg/dL Calcium (8.4-10.2) mg/dL Magnesium (1.6-2.6) mg/dL Total Bilirubin (0.0-1.0) mg/dL AST (5-31) U/L ALT (0-31) U/L Alkaline Phosphatase (39-117) U/L Total Protein (6.5-8.0) g/dL Albumin (3.5-5.0) g/dL Beta HCG, Quant mIU/mL COVID-19 ([facility]) Negative (Negative) COVID-19 Clin Com See Note Influenza Type A ([facility]IA) (Negative) Influenza Type B ([facility]IA) (Negative) Influenza A & B Note Discharge Plan Discharge Clinical Impression: Nausea & vomiting Patient Disposition: Home, Self-Care Instructions: Acute Nausea and Vomiting (ED) Additional Instructions: Follow up with your primary care provider. Return to the emergency department immediately if your symptoms worsen or if you develop any dizziness, shortness of breath, difficulty breathing, chest pain, blurry vision, loss of vision, nausea, vomiting, abdominal pain, fever, chills, back pain, or any other complaints. Prescriptions: New ondansetron 4 mg tablet,disintegrating 4 mg PO Q8H 3 Days Qty: 9 0RF Discontinued ondansetron 4 mg tablet,disintegrating 4 mg PO Q8H PRN (Reason: nausea and vomiting) Qty: 20 0RF oxycodone 5 mg tablet 5 mg PO Q8H PRN (Reason: pain) Qty: 10 0RF ibuprofen 800 mg tablet 800 mg PO Q8H PRN (Reason: pain) Qty: 14 0RF ondansetron HCl [Zofran] 4 mg tablet 4 mg PO Q8H PRN (Reason: nausea and vomiting) Qty: 14 0RF oxycodone 5 mg tablet 5 mg PO BID PRN (Reason: pain) Qty: 10 0RF ondansetron 4 mg tablet,disintegrating 4 mg PO Q6H PRN (Reason: nausea and vomiting) Qty: 10 0RF famotidine [Pepcid] 20 mg tablet 20 mg PO BID Qty: 14 0RF ondansetron 4 mg tablet,disintegrating 4 mg PO TID PRN (Reason: nausea and vomiting) 5 Days Qty: 10 0RF ondansetron 4 mg tablet,disintegrating 4 mg PO Q8H PRN (Reason: nausea and vomiting) Qty: 9 0RF No Action ibuprofen 600 mg tablet 600 mg PO Q8H PRN (Reason: pain) Qty: 20 0RF acetaminophen [Tylenol Extra Strength] 500 mg tablet 1,000 mg PO QID PRN (Reason: fever or pain) Qty: 14 0RF doxycycline monohydrate 100 mg capsule 100 mg PO BID 10 Days Qty: 20 0RF metronidazole [Flagyl] 500 mg tablet 500 mg PO BID 7 Days Qty: 14 0RF fluconazole [Diflucan] 150 mg tablet 150 mg PO Q3D Qty: 2 0RF Rx Instructions: may repeat second dose 72 hrs after first dose if symptoms persist famotidine [Pepcid] 20 mg tablet 20 mg PO BID 20 Days Qty: 40 0RF prednisone 20 mg tablet 60 mg PO DAILY 5 Days Qty: 15 0RF albuterol sulfate 90 mcg/actuation HFA aerosol inhaler 2 puff inhalation Q4-6H PRN (Reason: shortness of breath or wheezing) Qty: 6.7 0RF Referrals: [facility] Family Medicine [Provider Group] (Call to establish and follow up with a primary care provider. If you already have a primary care provider, please follow up with them. ) [facility] Primary Care, Yaima [Provider Group] (Call to establish and follow up with a primary care provider. If you already have a primary care provider, please follow up with them. ) [facility] Primary Care[facility]ne [Provider Group] (Call to establish and follow up with a primary care provider. If you already have a primary care provider, please follow up with them. ) Stand Alone Forms: Work/School Release Print Language: Grenadian
[2021-08-17] MEDS: Haloperidol Lactate 5 MG/ML VIAL IM (16:33)
[2021-08-17] MEDS: 0.9 % Sodium Chloride 1,000 ML 999 ML IVCONT (16:33)
[2021-08-17 16:38] LABS: MANUAL DIFF FLAG NO
[2021-08-17 16:42] LABS: Basophils Percent Auto 0.4 % (0-2); Hematocrit 41.5 % (37.0-47.0); Hemoglobin 13.5 g/dl (12.0-16.0); Imm Gran Abs Auto 0.03 X10*3/uL (0.00-0.03); Imm Gran Pct Auto 0.4 % (0.0-0.4); Lymphocytes Absolute Auto 0.7 X10*3/uL (1.2-4.9); Mean Corpuscular HGB Conc 32.5 g/dl (31.0-35.0); Mean Corpuscular Hemoglobin 29.8 pg (27.0-33.0); Mean Corpuscular Volume 91.6 fL (80.0-98.0); Mean Platelet Volume 11.6 fL (9.4-12.3); Monocytes Absolute Auto 0.3 X10*3/uL (0.1-1.2); Monocytes Percent Auto 3.5 % (2-11); Neutrophils Absolute Auto 6.1 x10*3/uL (2.0-8.3); Neutrophils Percent Auto 85.7 % (45-73); Platelet Count 217 X10*3/uL (160-400); Red Blood Count 4.53 X10*6/uL (4.20-5.50); Red Cell Distribution Width 13.4 % (11.0-16.0); White Blood Count 7.1 X10*3/uL (4.8-10.8)
[2021-08-17 16:56] LABS: COVID-19 Test Negative (Negative); IDNOW Serial# 16C4AD1C; Influenza A Negative (Negative); Influenza B2 Negative (Negative)
[2021-08-17 16:58] LABS: Alanine Aminotransferase 36 U/L (0-31); Albumin Level 4.8 g/dL (3.5-5.0); Alkaline Phosphatase 74 U/L (39-117); Anion Gap 15 (12-20); Aspartate Amino Transferase 30 U/L (5-31); Bilirubin Total 0.4 mg/dL (0.0-1.0); Blood Urea Nitrogen 17 mg/dL (9-16); Calcium 9.4 mg/dL (8.4-10.2); Carbon Dioxide 21 mmol/L (22-29); Chloride 109 mmol/L (96-108); Creatinine Clr Calc Pharmacy 102.2; Estimated Glomerular Filt Rate > 60; Glucose Random 106 mg/dL (60-115); Magnesium 1.7 mg/dL (1.6-2.6); Potassium 3.9 mmol/L (3.3-5.1); Sodium 141 mmol/L (135-145); Total Protein 7.7 g/dL (6.5-8.0)
[2021-08-17 17:04] LABS: HCG Quantitative < 2 mIU/mL
[2021-08-17 17:43] VITALS: BP 92/56; PULSE 72; RESP 16; TEMP 36.3; O2SAT 96
--- NOTE | 2021-08-17 17:47 | PC.NURSE ---
NAUSEA GONE. ASKING FOR JUICE AND CRACKERS.
[2021-08-17 18:49] LABS: Appearance Urine CLEAR; Color Urine YELLOW; Glucose Urine UA NEG (NEG); Leukocyte Esterase Urine NEG (NEG); Nitrite Urine NEG (NEG); PH 6.5 (5.0-8.0); Specific Gravity - Urine 1.025 (1.005-1.025); UACC Culture Trigger NO; Urine Blood NEG (NEG); Urine Ketones 40 MG/DL (NEG); Urine Protein 1+ MG/DL (NEG-TRACE)
[2021-08-17 19:09] LABS: Bacteria Urine TRACE /LPF; Mucus Urine 1+ /LPF; Squamous Epithelial Cell Urine TRACE /LPF; WBC Urine 0-2 /HPF (0-4)
== END 2021-08-17 18:59 | disposition home or self-care (01) ==
PROVIDERS: Physician Assistant Medical; Emergency Provider Emergency Medicine
DX: R11.2 Nausea with vomiting, unspecified (principal); Z79.899 Other long term (current) drug therapy; Z20.822 Contact with and (suspected) exposure to COVID-19
CPT/HCPCS: 36415; 80053; 81001; 83735; 84702; 85025; 87502; 87635; 96360; 96372; 99284

== ENCOUNTER 2021-10-28 14:50 | Emergency (ER) | payer OTHER, SELFPAY ==
[2021-10-28 14:54] VITALS: BP 125/87; PULSE 90; RESP 18; TEMP 36.8; O2SAT 98; BMI 34.0
[2021-10-28 15:16] LABS: COVID-19 Test Negative (Negative)
[2021-10-28 15:42] VITALS: BP 110/64; PULSE 74; RESP 15; TEMP 37; O2SAT 99
--- NOTE | 2021-10-28 15:46 | PC.NURSE ---
pt c/o sob, abd pain, nasal congestion, sore throat for days, pt c/o 8/10 pain
--- NOTE | 2021-10-28 15:53 | ED.URI ---
HPI - URI/Sore Throat General Chief Complaint: Upper Respiratory Symptoms Stated Complaint: SOB Time Seen by Provider: 10/28/21 15:45 Source: patient Mode of arrival: ambulatory Limitations: no limitations History of Present Illness HPI Narrative: 26-year-old female with a history of asthma presents with 3 days of body aches, nasal congestion, cough and wheezing, diarrhea, abdominal discomfort and low-grade fever with max temp of 100.9 degrees. 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 She reports she has been using her albuterol inhaler and nebulizer intermittently throughout this course of illness. She has a history of admissions for asthma as a child but none as an adult. No intubation history. Related Data Previous Rx's Medication Instructions Recorded ibuprofen 600 mg tablet 600 mg PO Q8H PRN pain #20 tabs 03/18/20 acetaminophen 500 mg tablet 1,000 mg PO QID PRN fever or pain 09/29/20 (Tylenol Extra Strength) #14 tabs doxycycline monohydrate 100 mg 100 mg PO BID 10 days #20 caps 09/29/20 capsule fluconazole 150 mg tablet 150 mg PO Q3D Candidiasis 2 doses 09/29/20 (Diflucan) #2 tabs metronidazole 500 mg tablet 500 mg PO BID 7 days #14 tabs 09/29/20 (Flagyl) famotidine 20 mg tablet (Pepcid) 20 mg PO BID 20 days #40 tabs 11/30/20 albuterol sulfate 90 mcg/actuation 2 puff inhalation Q4-6H PRN 06/08/21 aerosol inhaler shortness of breath or wheezing #6.7 grams prednisone 20 mg tablet 60 mg PO DAILY 5 days #15 tabs 06/08/21 ondansetron 4 mg disintegrating 4 mg PO Q8H 3 days #9 tabs 08/17/21 tablet amoxicillin 500 mg capsule 500 mg PO BID #20 caps 10/28/21 prednisone 20 mg tablet 40 mg PO DAILY #10 tabs 10/28/21 Allergies Allergy/AdvReac Type Severity Reaction Status Date / Time No Known Allergies Allergy Unverified 11/10/19 16:17 [No Known Allergies*] Review of Systems Review of Systems: Yes all other systems are reviewed and are negative Constitutional: Constitutional: Reports no additional constitutional complaints, Reports body ache(s), Denies chills, Reports fever(s), Denies headache(s) and Denies weakness Eyes: Eyes: Reports no additional eye complaints and Denies change in vision ENT: Reports system reviewed and no additional complaints, except as documented, Denies dizziness, Denies headache(s), Reports nasal congestion, Denies nasal discharge and Denies neck pain Cardiovascular: Cardiovascular: Reports no additional cardiovascular complaints, Denies chest pain, Denies leg edema and Denies dyspnea Respiratory: Respiratory: Reports no additional respiratory complaints, Reports cough, Denies dyspnea and Reports wheezing Gastrointestinal: Gastrointestinal: Reports no additional gastrointestinal complaints, Reports abdominal pain, Reports diarrhea, Denies nausea and Denies vomiting Genitourinary: Genitourinary: Reports no additional female genitourinary complaints and Denies urinary incontinence Musculoskeletal: Musculoskeletal: Reports no additional musculoskeletal complaints, Denies back pain, Denies arthralgias, Denies joint swelling, Denies neck pain, Denies numbness and Denies tingling Integumentary/Breasts: Skin/Breast: Reports system reviewed and no additional complaints, except as docu and Denies rash Neurologic: Reports system reviewed and no additional complaints, except as documented, Denies Abnormal speech present, Denies dizziness, Denies headache(s), Denies numbness, Denies tingling and Denies weakness Allergic/Immunologic: Allergic/Immunologic: Reports wheezing PMFSH Past Medical History Attestation statement: The following information was validated with the patient. Source: old records reviewed and nursing notes reviewed Medical History Asthma Social History Social History Alcohol intake: current Alcohol intake frequency: holidays/special occasions only Patient Tobacco Use Status: Never used Tobacco Substance Use Type: Marijuana Advance Directives: No Advance Directives Information Provided: No Patient : No Physical Exam Vital Signs: Vital Signs: Last Vital Signs Temp 98.6 F 10/28/21 15:42 Pulse 74 10/28/21 15:42 Resp 15 10/28/21 15:42 BP 110/64 10/28/21 15:42 Pulse Ox 99 10/28/21 15:42 O2 Del Method 10/28/21 15:42 BMI result Body Mass Index 34.0 Const: General: cooperative, healthy appearing, comfortable and no acute distress Orientation/consciousness: patient oriented x3 Limitations: no limitations HEENT: Head: Yes normal to inspection Ears: hearing grossly normal bilaterally and TM abnormal bulging bilateral and erythematous General nose exam: Normal external nose present Face and sinus: Yes normal facial exam Mouth: Normal oral and palatal mucosa present Throat: Yes posterior oropharynx normal Eyes: General: appearance normal, both eyes and all related structures Pupils: Equal, round and reactive pupils present Neck: Neck: Yes normal visual inspection, Yes full ROM, Yes no lymphadenopathy and Yes no meningeal signs Chest: Chest palpation & inspection: normal inspection of the chest Resp: Other: Slight wheezing throughout Effort & Inspection: normal respiratory effort Cardio: Rate: regular rate Rhythm: regular rhythm Peripheral pulses: Peripheral pulses 2+ throughout GI: Inspection: Yes normal to inspection Palpation (GI): Soft to palpation and nontender Auscultation: normal bowel sounds Back/Spine/Pelvis: Thoracic/Lumbar Spine: thoracic and lumbar spine normal to inspection Skin: General skin exam: no rashes or lesions noted Neuro: General: patient oriented x3, no meningeal signs, no focal motor deficits and normal sensation to monofilament Cranial nerves: Yes Equal, round and reactive pupils present Cognition (Neuro): normal cognition Speech: No Abnormal speech present Gait exam (Neuro): Normal gait present Motor exam (neuro): 5/5 motor strength present throughout Extrem: General: Yes normal to inspection MDM - URI/Sore Throat MDM Narrative Medical decision making narrative: 26-year-old female here with flu-like symptoms for 3 days as well as cough and wheezing despite using her asthma medications. On arrival vital signs are stable. Patient has mild expiratory wheezing throughout. She has bilateral otitis media on exam. She is speaking full sentences. No respiratory distress. Her COVID screen from triage is negative. Patient will need to be treated with course of prednisone for asthma exacerbation and amoxicillin for otitis media. Reviewed worrisome signs and symptoms with the patient and when to return to the emergency department. Comfortable discharge home. Differential Diagnosis Differential diagnosis: Likely otitis media Medical Records Attestation: I reviewed the patient's medical records. Lab Data Attestation: I reviewed the patient's lab results. Labs: Lab Results 10/28/21 Range/Units 14:57 COVID-19 ([facility]) Negative (Negative) COVID-19 Clin Com See Note Discharge Plan Discharge Clinical Impression: Viral infection, Otitis media, Asthma exacerbation Patient Disposition: Home, Self-Care Instructions: Asthma (ED), Ear Infection (ED), Viral Syndrome (ED) Additional Instructions: Covid screen is negative Increase fluids, rest Motrin or tylenol for pain or fever as needed Prescriptions: New prednisone 20 mg tablet 40 mg PO DAILY Qty: 10 0RF amoxicillin 500 mg capsule 500 mg PO BID Qty: 20 0RF No Action ibuprofen 600 mg tablet 600 mg PO Q8H PRN (Reason: pain) Qty: 20 0RF acetaminophen [Tylenol Extra Strength] 500 mg tablet 1,000 mg PO QID PRN (Reason: fever or pain) Qty: 14 0RF doxycycline monohydrate 100 mg capsule 100 mg PO BID 10 Days Qty: 20 0RF metronidazole [Flagyl] 500 mg tablet 500 mg PO BID 7 Days Qty: 14 0RF fluconazole [Diflucan] 150 mg tablet 150 mg PO Q3D Qty: 2 0RF Rx Instructions: may repeat second dose 72 hrs after first dose if symptoms persist famotidine [Pepcid] 20 mg tablet 20 mg PO BID 20 Days Qty: 40 0RF prednisone 20 mg tablet 60 mg PO DAILY 5 Days Qty: 15 0RF albuterol sulfate 90 mcg/actuation HFA aerosol inhaler 2 puff inhalation Q4-6H PRN (Reason: shortness of breath or wheezing) Qty: 6.7 0RF ondansetron 4 mg tablet,disintegrating 4 mg PO Q8H 3 Days Qty: 9 0RF Referrals: Zunilda Ignacio MD [Primary Care Provider] - 1 week (as needed) Stand Alone Forms: Work/School Release Interventions: ED Discharge Assessment Last Done: 10/28/21 15:57 Discharge Date/Time: 10/28/21 15:57
== END 2021-10-28 15:57 | disposition home or self-care (01) ==
PROVIDERS: Emergency Provider Emergency Medicine; PCP Internal Medicine
DX: B34.9 Viral infection, unspecified (principal); H66.93 Otitis media, unspecified, bilateral; J45.901 Unspecified asthma with (acute) exacerbation; R50.9 Fever, unspecified; Z20.822 Contact with and (suspected) exposure to COVID-19
CPT/HCPCS: 87635; 99283

== ENCOUNTER 2022-08-10 18:14 | Emergency (ER) | payer OTHER, SELFPAY ==
[2022-08-10 18:28] VITALS: BP 108/76; PULSE 80; RESP 16; TEMP 36.1; O2SAT 97; BMI 35.9
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
[2022-08-10] MEDS: Cyclobenzaprine HCl 5 MG TABLET PO (18:39)
[2022-08-10] MEDS: Ketorolac Tromethamine 15 MG/ML VIAL IM (18:42)
== END 2022-08-10 18:44 | disposition home or self-care (01) ==
LOC: HO.ED 18:40
PROVIDERS: Emergency Provider Emergency Medicine; PCP Internal Medicine
DX: Z04.1 Encounter for examination and observation following transport accident (principal); M54.2 Cervicalgia
CPT/HCPCS: 96372; 99283; 99284; J1885

== ENCOUNTER 2023-02-17 11:32 | Outpatient (REF) | payer OTHER, SELFPAY ==
[2023-02-17 13:30] LABS: Cholesterol 136 mg/dL (<200); HDL Cholesterol 57 mg/dL (>40); LDL Cholesterol Calculated 69 mg/dL (<100); Triglycerides 50 mg/dL (<150)
[2023-02-17 13:32] LABS: Alanine Aminotransferase 15 U/L (0-31); Albumin Level 4.2 g/dL (3.5-5.0); Alkaline Phosphatase 67 U/L (39-117); Aspartate Amino Transferase 18 U/L (5-31); Bilirubin Direct 0.1 mg/dL (0.0-0.5); Bilirubin Total 0.3 mg/dL (0.0-1.0); Total Protein 6.8 g/dL (6.5-8.0)
[2023-02-17 13:44] LABS: Reflex LDLD? No
[2023-02-18 08:11] LABS: HBS Num1 65.76 mIU/mL (0-7.99); HBsAGNum1 0.33 S/CO (0.00-0.99); HIV AB/AG Nonreactive (Nonreactive); HIV Num 1 0.05 S/CO (0.00-0.99); Hepatitis A Antibody IgM 0.36 Index (0-0.79); Hepatitis B Core Antibody Nonreactive (Nonreactive); Hepatitis B Surface Antigen Negative (Negative); ~Hepatitis A Antibody IgM Nonreactive (Nonreactive); ~Hepatitis B Surface Antibody REACTIVE (Nonreactive); ~Hepatitis C Antibody Nonreactive (Nonreactive)
[2023-02-18 15:03] LABS: RPR Rapid Plasma Reagin NON-REACTIVE (NON-REACTIVE)
[2023-02-20 07:18] LABS: TS Negative Control Passed; TS Panel A 0; TS Panel B 0; TS Positive Control Passed; TSpotTB Negative (Negative)
== END 2023-02-17 11:33 | disposition home or self-care (01) ==
LOC: HO.HHCL 11:32
PROVIDERS: Visit Provider Internal Medicine
DX: Z00.00 Encounter for general adult medical examination without abnormal findings (principal); Z11.4 Encounter for screening for human immunodeficiency virus [HIV]; Z11.1 Encounter for screening for respiratory tuberculosis
CPT/HCPCS: 36415; 80061; 80076; 86481; 86592; 86704; 86706; 86709; 86803; 87340; 87389

== ENCOUNTER 2023-10-05 12:13 | Outpatient (REF) | payer OTHER, SELFPAY ==
[2023-10-05 13:10] LABS: MANUAL DIFF FLAG NO
[2023-10-05 13:21] LABS: Basophils Percent Auto 0.5 % (0-2); Eosinophils Absolute Auto 0.2 X10*3/uL (0.0-0.4); Hematocrit 42.5 % (37.0-47.0); Imm Gran Abs Auto 0.03 X10*3/uL (0.00-0.03); Imm Gran Pct Auto 0.5 % (0.0-0.4); Lymphocytes Absolute Auto 2.2 X10*3/uL (1.2-4.9); Mean Corpuscular HGB Conc 32.9 g/dl (31.0-35.0); Mean Corpuscular Hemoglobin 30.2 pg (27.0-33.0); Mean Corpuscular Volume 91.6 fL (80.0-98.0); Monocytes Absolute Auto 0.4 X10*3/uL (0.1-1.2); Monocytes Percent Auto 6.3 % (2-11); Neutrophils Absolute Auto 3.2 x10*3/uL (2.0-8.3); Neutrophils Percent Auto 52.7 % (45-73); Platelet Count 173 X10*3/uL (160-400); Red Blood Count 4.64 X10*6/uL (4.20-5.50)
[2023-10-05 13:32] LABS: Alanine Aminotransferase 18 U/L (0-31); Albumin Level 4.5 g/dL (3.5-5.0); Alkaline Phosphatase 68 U/L (39-117); Aspartate Amino Transferase 18 U/L (5-31); Bilirubin Direct 0.1 mg/dL (0.0-0.5); Bilirubin Total 0.3 mg/dL (0.0-1.0); Total Protein 7.3 g/dL (6.5-8.0)
[2023-10-05 13:49] LABS: TSH reflex Free T4 1.08 uIU/mL (0.32-4.0)
[2023-10-05 13:58] LABS: Erythrocyte Sedimentation Rate 2 MM/HR (0-20)
[2023-10-06 23:12] LABS: Immunoglobulin E 45 kU/L (<OR=114)
== END 2023-10-05 12:14 | disposition home or self-care (01) ==
LOC: HO.HHCL 12:13
PROVIDERS: Visit Provider Internal Medicine
DX: L50.9 Urticaria, unspecified (principal)
CPT/HCPCS: 36415; 80076; 82785; 84443; 85025; 85652

== ENCOUNTER 2023-12-30 18:12 | Outpatient (REF) | payer OTHER, SELFPAY ==
[2023-12-31 05:38] LABS: CT PCR NOT DETECTED (Not Detect.); NG PCR NOT DETECTED (Not Detect.)
[2023-12-31 14:55] LABS: Bacterial Vaginosis PCR POSITIVE (Negative); Candida Group PCR DETECTED (Not Detect); Candida glab krusei PCR NOT DETECTED (Not Detect); Trichomonas vaginalis PCR NOT DETECTED (Not Detect)
== END 2023-12-30 18:13 | disposition home or self-care (01) ==
LOC: HO.HHCLNP 18:12
PROVIDERS: Visit Provider Nurse Practitioner Family
DX: N89.8 Other specified noninflammatory disorders of vagina (principal)
CPT/HCPCS: 0352U; 87491; 87591

== ENCOUNTER 2024-07-08 08:40 | Emergency (ER) | payer OTHER, SELFPAY ==
--- NOTE | ~2024-07-08 | CT_ITS ---
EXAMINATION: CT ABDOMEN AND PELVIS WITH CONTRAST CLINICAL INFORMATION: Epigastric pain. COMPARISON: Numerous priors, most recently 06/08/2021. TECHNIQUE: Multidetector volumetric images were obtained from the superior aspect of the liver through the pubic symphysis following administration 85 mL of Omnipaque 350 intravenous contrast. Sagittal and coronal reformatted images were obtained on the technologist's workstation. Oral contrast: No This CT examination was performed using dose optimization techniques as appropriate, variously including the following: *Automated exposure control *Adjustment of mA and/or kV according to patient size (this includes techniques or standardized protocols for targeted exams where dose is matched to indication/reason for exam; i.e. extremities or head) *Use of iterative reconstruction technique FINDINGS: LUNG BASES: Lung bases are clear. Small type I hiatus hernia. No effusions. LIVER, GALLBLADDER, AND BILIARY TREE: The liver is normal in size, shape, and attenuation. No focal hepatic lesion or biliary ductal dilatation is present. The gallbladder is unremarkable with no evidence of radiopaque gallstones, gallbladder wall thickening, or obvious pericholecystic inflammatory changes. PANCREAS: Unremarkable. SPLEEN: Unremarkable. ADRENAL GLANDS: Unremarkable. KIDNEYS AND URETERS: The kidneys are normal in size, shape, and attenuation. No hydronephrosis, hydroureter, or calculi seen. No perinephric stranding. BLADDER: Unremarkable. GASTROINTESTINAL TRACT: There appears to be wall thickening of the entire colon with mild hyperemia of the mesentery. There may be rectal sparing. Normal appendix noted. The small bowel is normal in caliber and course and appearance. Small type I hiatus hernia. ABDOMINAL WALL: No significant hernia is appreciated. LYMPH NODES: Normal. VASCULAR: Unremarkable. PELVIC VISCERA: There is a left adnexal/ovarian cyst measuring 4.3 x 4.2 cm, stable from numerous prior exams. The uterus and right ovary appear normal. OSSEOUS STRUCTURES: No suspicious lytic or blastic bone lesions. CT/CT abdomen pelvis w IV con IMPRESSION: 1. Pancolitis. This could be infectious or inflammatory. 2. Small type I hiatal hernia. 3. Left ovarian/adnexal cyst measuring 4.3 x 4.2 cm, stable from numerous prior examinations and consistent with a benign entity. Electronically signed by: Nathan Patricio MD 07/08/2024 10:50 AM EDT
[2024-07-08 08:57] VITALS: BP 107/84; PULSE 78; RESP 14; TEMP 36.4; O2SAT 99; BMI 33.6
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
[2024-07-08] MEDS: droPERidol 5 MG/2 ML VIAL 0.625 MG IVPUSH (09:12)
[2024-07-08] MEDS: Ketorolac Tromethamine 30 MG/ML VIAL IVPUSH (09:12)
[2024-07-08] MEDS: 0.9 % Sodium Chloride 1,000 ML 999 ML IV (09:13)
--- OUTSIDE RECORDS SUMMARY | 2024-07-08 09:17 | XMS_ITS | Clinical Summary ---
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 AM EST Subgingival dental calculus Supragingival dental calculus Periodontal disease Tartar deposits on teeth UL PERIODONTAL SCALING AND ROOT PLANING - 4 OR MORE TEETH PER QUADRANT Routine 04/28/2024 11:00 AM EST Subgingival dental calculus Supragingival dental calculus Periodontal disease Tartar deposits on teeth PROPHYLAXIS - ADULT Routine 02/22/2024 1 :00 PM EST Dental calculus Dental plaque Tartar deposits on teeth INTRAORAL - COMPLETE SERIES OF RADIOGRAPHIC IMAGES Routine 02/22/2024 1:00 PM EST HEPATITIS PANEL, GENERAL Routine 02/17/2023 11:33 AM EST Encounter for preventive health examination HIV 1/2 ANTIGEN/ANTIBODY, FOURTH GENERATION W/RFL Routine 02/17/2023 11:33 AM EST Encounter for preventive health examination HPV GENOTYPES 16,18/45 Routine 08/19/2022 12:39 PM EDT THINPREP IMAGING PAP AND HPV MRNA E6/E7 WITH REFLEX TO HPV 16,18/45 Routine 08/19/2022 12:39 PM EDT Encounter for cervical Pap smear with pelvic exam PERIODIC ORAL EVALUATION - ESTABLISHED PATIENT Routine 06/24/2017 12:00 AM EDT from Last 3 Months or Most Recently Relevant to Health Maintenance Results * Hepatitis Panel, General (02/17/2023 11:33 AM EST) Hepatitis A IgM Nonreactive Nonreactive [facility] Comment:IgM antibodies to ONEILL V not detected; does not exclude earlyacute or recovered HAV infection. ~Hepatitis B Surface Antibody REACTIVE Nonreactive [facility] Comment:REACTIVE: > 11.99 mI U/mL Hepatitis B Core Antibody Nonreactive Nonreactive [facility] Hepatitis C Antibody Nonreactive Nonreactive [facility] Comment:Antibodies to HCV no t detected; does not exclude early acuteHCV infection. Hepatitis B Surface Ag Negative Negative [facility] Blood 02/17/2023 11:3 3 AM EST 02/17/2023 1:09 PM EST Zunilda Ignacio MD LAB BLOOD ORDERABLES Fin al Result Performing Organization Address [facility] Co de Phone Number [facility] [address] [place] [address] [phone] * HIV-1/2 Antigen and Antibodies, Fourth Generation, with Reflexes (02/17/2023 11:33 AM EST) [facility] HIV AB/AG Nonreactive Nonreactive [facility] Comment:HIV-1 p24 Ag and/or HIV-1/HIV-2 Ab not detected.A test result that is nonreactive does not exclude thepossibility of exposure to or infection with HIV-1 and/orHIV-2. Nonreactive results in this assay for individualswith prior exposure to HIV-1 and/or HIV-2 may be due toantigen and antibody levels that are below the limit ofdetection of this assay.[employer] HIV Ag/Ab Combo assay result andsupplemental assay results should be interpreted inconjunction with the patient's clinical presentation,history and other laboratory results. If the results areinconsistent with clinical evidence, additional testing issuggested to confirm the result. Blood Venous blood specimen / Unknown 02/17/2023 11:33 AM EST 02/17/2023 1:09 PM EST us Zunilda Ignacio MD LAB BLOOD ORDERABLES Fin al Result Performing Organization Address [facility] Co de Phone Number [facility] [address] [place] [address] [phone] * (ABNORMAL) Thinprep TIS PAP And HPV mRNA E6/E7 With Reflex To HPV 16,18/45 (08/19/2022 12:39 PM EDT) Clinical Information: Routine exam [facility] LMP: NONE GIVEN [facility] Prev. PAP: NONE GIVEN [facility] Prev. BX: NO [facility] SOURCE: None given [facility] Statement Of Adequacy: [facility] Comment: Satisfactory for evaluation. Endocervical/transformation zone component absent. Interpretation/ Result: Negative for intraepithelial lesion or malignancy. [facility] Infection Shift in vaginal melanie suggestive of bacterial vaginosis. [facility] COMMENT: This Pap test has been evaluated with computer assisted technology. [employer] [place] [employer] Cytotechnologis t: [facility] Comment: [facility], CT(ASCP) CT screening location: [address] ??[phone] Review Cytotechnologis t: [facility] Comment: [facility], CT(ASCP) CT screening location: [address] ??[phone] (Always Message) [facility] Comment: EXPLANATORY NOTE: The Pap is a screening test for cervical cancer. It is not a diagnostic test and is subject to false negative and false positive results. It is most reliable when a satisfactory sample, regularly obtained, is submitted with relevant clinical findings and history, and when the Pap result is evaluated along with historic and current clinical information. HPV nRNA E6/E7 Detected(A) Not Detected [facility] Comment: Methodology: Loom Operator Apprentice-Mediated Amplification This assay detects E6/E7 viral messenger RNA (mRNA) from 14 high-risk HPV types (16,18,31,33,35,39,45,51,52,56,58,59,66,68). Cervical sources are required for HPV testing. If a vaginal source from a patient who has had a total hysterectomy with removal of cervix was submitted, please contact the testing laboratory for alternative testing options. For additional information, please refer to http://education.[employer]/faq/HQV320c7 (This link if provided for information/ educational purposes only.) Genital 08/19/2022 12:3 9 PM EDT 08/20/2022 3:04 AM EDT Zunilda Ignacio MD LAB PATHOLOGY ORDERABLES Final Result Performing Organization Address [facility] de Phone Number [facility] [address], [place] [address] [employer] [place] [facility] [employer] [address] [place] [address] * HPV Genotypes 16,18/45 (08/19/2022 12:39 PM EDT) HPV 16 RNA NOT DETECTED NOT DETECTED [employer] [place] [employer] HPV 18/45 RNA NOT DETECTED NOT DETECTED [employer] [place] [facility] Comment: Methodology: Loom Operator Apprentice Mediated Amplification Cervical sources are required for HPV testing. If a vaginal source from a patient who has had a total hysterectomy with removal of cervix was submitted, please contact the testing laboratory for alternative testing options. 08/19/2022 12:3 9 PM EDT 08/20/2022 3:04 AM EDT Zunilda Ignacio MD LAB CYTOLOGY ORDERABLES Final Result Performing Organization Address [facility] de Phone Number [facility] [address], [place] [address] [employer] [place] [employer] [address] [place] [address] from Last 3 Months or Most Recently Relevant to Health Maintenance Insurance [facility] < 65 DENTAL - [facility] Care Teams Dobie Man Relationship Specialty Start Date End Date Zunilda Ignacio MD [address] [place] [address] PCP - General Family Medicine 02/29/16 Benson Waters FNP [address] [place] [address] Nurse Practitioner Family Medicine 01/23/23
--- OUTSIDE RECORDS SUMMARY | 2024-07-08 09:18 | XMS_ITS | Encounter Summary ---
Author Organization [employer] Address [address] [place] [address] Care Team Providers Care Dough Molder Name Role Phone Zunilda Ignacio MD Primary Care Provider + Benson Waters Unavailable Unavailable Encounter Details Date Type Department Care Team ([facility] st Contact Info) Description 08/21/2022 Orders Only [facility] MEDICINE [address] [place] [address] Zunilda Ignacio MD [address] [place] [phone] Bacterial vaginitis (Primary Dx) Social History Tobacco Use Types Packs/Day Years Used Date Smoking Tobacco: Never Smokeless Tobacco: Never Alcohol Use Standard Drinks/Week Comments Yes 0 (1 standard drink = 0.6 oz pur e alcohol) oca Alcohol Answer Date Recorded How often do you have a drink containing alcohol ? 3 03/04/2022 How many drinks containing a lcohol do you have on a typical day when you are drinking? 1 03/04/2022 How often do you have six or more drinks on one occasion? 0 03/04/2022 Comments Unknown Sex and Gender Information Value Date Recorded Sex Assigned at Female 12/23/2021 10:15 AM EDT Legal Sex Female 10:15 AM EDT Gender Identity Female 12/23/2021 10:15 AM EDT Sexual Orientation Choose not to disclose 2021 10:15 AM EDT COVID-19 Exposure Response Date Recorded In the last 10 days, have yo u been in contact with someone who was confirmed or suspected to have Coronavirus/COVID-19? No / Unsure 08/19/2022 11:43 AM EDT documented as of this encounter Plan of Treatment Upcoming Encounters Date Type Department Care Team (Late st Contact Info) Description 11/21/2024 3:00 PM EDT Office Visit [facility] ADULT DENTAL [address] [place] [address] Debbie Moran documented as of this encounter Procedures Procedure Name Priority Date/Time Associated Diagnosis Comments HEPATIC FUNCTION PANEL Routine 02/17/2023 11:33 AM EST Bacterial vaginitis documented in this encounter Results * Hepatic Function Panel (02/17/2023 11:33 AM EST) Bilirubin, Total 0.3 0.0 - 1.0 mg/dL [facility] Bilirubin, Direct 0.1 0.0 - 0.5 mg/dL [facility] Aspartate Amino Transferase 18 5 - 31 U/L [facility] Alanine Aminotransferase 15 0 - 31 U/L [facility] Total Protein 6.8 6.5 - 8.0 g/dL [facility] Albumin Level 4.2 3.5 - 5.0 g/dL [facility] Alkaline Phosphatase 67 39 - 117 U/L [facility] 02/17/2023 11:3 3 AM EST 02/17/2023 1:09 PM EST us Zunilda Ignacio MD LAB BLOOD ORDERABLES Fin al Result [facility] [address] [place] [phone] [phone] documented in this encounter Visit Diagnoses Diagnosis Bacterial vaginitis- Primary Unspecified vaginitis and vulvovaginitis documented in this encounter Additional Health Concerns Assessment Noted Time PHQ-9 Depression Total Score: 3 04/29/19 23 11:36 AM EST documented as of this encounter Care Teams Dough Molder Relationship Specialty Start Date End Date Zunilda Ignacio MD [address] [place] [address] PCP - General Family Medicine 02/29/16 Benson Waters FNP [address] [place] [address] Nurse Practitioner Family Medicine 01/23/23 documented as of this encounter
--- OUTSIDE RECORDS SUMMARY | 2024-07-08 09:18 | XMS_ITS | Encounter Summary ---
Author Organization [employer] Address [address] [place] [address] Care Team Providers Care Application Administrator Name Role Phone Zunilda Ignacio MD Primary Care Provider + Benson Waters Unavailable Unavailable Reason for Visit * Reason Onset Date Comments Nurse Triage 06/20/2024 Encounter Details Date Type Department Care Team ([facility] Contact Info) Description 06/20/2024 Telephone [facility] MEDICINE [address] [place] [address] Zunilda Ignacio MD [address] [place] [address] Nurse Triage Social History Tobacco Use Types Packs/Day Years [...] the past 12 months, has t he [employer], gas, oil or water [employer] threatened to shut off services in your home? No 12/29/2022 Depression Answer Date Recorded Patient Health Questionnaire-2 Score 6 09/08/2023 Comments No Sex and Gender Information Value Date Recorded Sex Assigned at Female 12/23/2021 10:15 AM EDT Legal Sex Female 10:15 AM EDT Gender Identity Female 12/23/2021 10:15 AM EDT Sexual Orientation Choose not to disclose 2021 10:15 AM EDT documented as of this encounter Miscellaneous Notes * Telephone Encounter - Natasha Higgins RN - 06/20/2024 10:54 AM EDT Triage call Pt reports vaginal discharge which is thick and white, iwith itchiness which started 06/17/24. Pt is given home care advice for yeast infection and available OTC anti fungal medications available. Advised to obtain OTC and start as directed on package. Call back if no effect. Pt agrees with this disposition and home care advised. Will call back for apt if needed. Protocol Used: Vaginal Symptoms (Adult) Protocol-Based Disposition: Home Care Positive Triage Question: * Symptoms of a yeast infection (i.e., itchy, white discharge, not bad smelling) and feels like prior vaginal yeast infections * All higher-acuity triage questions were negative Care Advice Discussed: * Reassurance and Education - Vaginal Yeast Infection * Antifungal Medicine for Yeast Infection * Antifungal Medicine for Yeast Infection - Extra Notes and Warnings * Genital Hygiene * Expected Course * Reasons To Call Back - Vaginal discharge becomes yellow or green - Vaginal discharge becomes foul smelling or itchy - Fever or abdomen pain occur - You become worse * Telephone Encounter - Baldemar Gooden - 06/20/2024 10:36 AM EDT Symptoms: Vaginal Symptoms - Not Bleeding, Itching - No Rash Outcome: Schedule an urgent appointment (within 1 hour) or talk to a nurse or provider soon Reason: Any pelvic pain The caller accepted this outcome. documented in this encounter Plan of Treatment Upcoming Encounters Date Type Department Care Team (Late st Contact Info) Description 11/21/2024 3:00 PM EDT Office Visit [facility] ADULT DENTAL [address] [place] [address] Debbie Moran documented as of this encounter Visit Diagnoses Not on filedocumented in this encounter Additional Health Concerns Assessment Noted Time PHQ-9 Depression Total Score: 11 07/ 024 10:25 AM EDT documented as of this encounter Care Teams Application Administrator Relationship Specialty Start Date End Date Zunilda Ignacio MD [address] [place] [phone] PCP - General Family Medicine 02/29/16 Benson Waters FNP [address] [place] [phone] Nurse Practitioner Family Medicine 01/23/23 documented as of this encounter
[2024-07-08 09:26] LABS: MANUAL DIFF FLAG NO
[2024-07-08 09:31] LABS: Basophils Percent Auto 0.7 % (0-2); Eosinophils Percent Auto 0.4 % (0-4); Hematocrit 38.2 % (37.0-47.0); Hemoglobin 13.2 g/dl (12.0-16.0); Imm Gran Abs Auto 0.03 X10*3/uL (0.00-0.03); Imm Gran Pct Auto 0.7 % (0.0-0.4); Lymphocytes Absolute Auto 1.5 X10*3/uL (1.2-4.9); Lymphocytes Percent Auto 33.6 % (20-40); Mean Corpuscular HGB Conc 34.6 g/dl (31.0-35.0); Mean Corpuscular Hemoglobin 30.2 pg (27.0-33.0); Mean Corpuscular Volume 87.4 fL (80.0-98.0); Mean Platelet Volume 11.7 fL (9.4-12.3); Monocytes Absolute Auto 0.2 X10*3/uL (0.1-1.2); Monocytes Percent Auto 5.3 % (2-11); Neutrophils Absolute Auto 2.7 x10*3/uL (2.0-8.3); Neutrophils Percent Auto 59.3 % (45-73); Platelet Count 213 X10*3/uL (160-400); Red Blood Count 4.37 X10*6/uL (4.20-5.50); Red Cell Distribution Width 13.5 % (11.0-16.0); White Blood Count 4.5 X10*3/uL (4.8-10.8)
[2024-07-08 09:50] LABS: Alanine Aminotransferase 26 U/L (0-31); Albumin Level 4.4 g/dL (3.5-5.0); Alkaline Phosphatase 69 U/L (39-117); Anion Gap 11 (12-20); Aspartate Amino Transferase 26 U/L (5-31); Bilirubin Direct 0.1 mg/dL (0.0-0.5); Bilirubin Total 0.3 mg/dL (0.0-1.0); Blood Urea Nitrogen 11 mg/dL (9-16); Calcium 8.8 mg/dL (8.4-10.2); Carbon Dioxide 21 mmol/L (22-29); Chloride 114 mmol/L (96-108); Creatinine Clr Calc Pharmacy 118.8; Estimated Glomerular Filt Rate > 60; Ethanol 51 mg/dL; Glucose Random 119 mg/dL (60-115); Lipase 26 U/L (8-78); Potassium 3.7 mmol/L (3.3-5.1); Sodium 142 mmol/L (135-145)
[2024-07-08 10:01] LABS: HCG Quantitative < 2 mIU/mL; Troponin-I High Sensitivity < 2.7 ng/L (<3.5-17.0)
[2024-07-08] MEDS: iohexoL 350 MG/ML 100 ML INFUS..BTL IV (10:27)
--- NOTE | 2024-07-08 11:57 | PC.NURSE ---
patient states she wants to leave, IV removed, vitals taken. given dc papers
[2024-07-08 11:58] VITALS: BP 124/75; PULSE 75; RESP 16; TEMP 36.4; O2SAT 98
== END 2024-07-08 11:59 | disposition home or self-care (01) ==
PROVIDERS: Emergency Provider Emergency Medicine Emergency Medical Services; PCP Internal Medicine
DX: E86.0 Dehydration (principal); R11.2 Nausea with vomiting, unspecified; R19.7 Diarrhea, unspecified; Z51.81 Encounter for therapeutic drug level monitoring; Z79.899 Other long term (current) drug therapy
CPT/HCPCS: 36415; 74177; 80048; 80076; 80307; 83690; 84484; 84702; 85025; 96361; 96374; 96375; 99283; 99284; J1790; J1885; Q9967

== ENCOUNTER → 2024-07-08 08:58 | Outpatient (BNV) | payer OTHER, SELFPAY | PROVIDERS: Emergency Provider Emergency Medicine Emergency Medical Services; PCP Internal Medicine; Visit Provider Radiology Diagnostic Radiology | DX: K44.9 Diaphragmatic hernia without obstruction or gangrene (principal) | CPT/HCPCS: 74177 ==

== ENCOUNTER 2024-08-24 16:01 | Outpatient (REF) | payer OTHER, SELFPAY ==
--- OUTSIDE RECORDS SUMMARY | 2024-08-24 16:03 | XMS_ITS | Clinical Summary ---
Author Organization [employer] Address [address] [facility] [address] [place] [address] Care Team Providers Care Compressor Station Operator Name Role Phone Zunilda Ignacio MD Primary Care Provider + Benson Waters Unavailable Unavailable Allergies Active Allergy Reactions Criticality Noted Date Comments Cat Dander 09/17/2023 Medications * This document contains information received from the source organization and may not represent a complete record from that organization. perphenazine 8 MG tablet Take 1 tablet (8 mg) by mouth 2 times daily. 180 tablet 3 09/08/19 24 Active albuterol 108 (90 Base) MCG/ACT inhalerIndicat ions:Viral URI with cough Inhale 2 puffs every 6 (six) hours if needed for wheezing. 18 g 3 12/01/19 24 Active fexofenadine (Hannah) 180 MG tablet TAKE 1 TABLET BY MOUTH EVERY DAY NEEDED FOR ALLERGIES 90 tablet 1 08/10/19 25 Active cloNIDine (Catapres) 0.1 MG tabletIndicati ons:Recurrent major depressive episodes, moderate (CMS/HCC) Take 1 tablet (0.1 mg) by mouth 2 times daily. 180 tablet 3 08/25/19 25 Active hydrOXYzine HCl (Atarax) 10 MG tabletIndicati ons:Recurrent major depressive episodes, moderate (CMS/HCC) Take 1-2 tablets (10-20 mg) by mouth every 6 (six) hours if needed for anxiety. Take at first sign of panic attack 90 tablet 5 08/25/19 25 Active topiramate (Topamax) 100 MG tablet Take 1 tablet (100 mg) by mouth 2 times daily. 180 tablet 3 08/25/19 25 Active fluconazole (Diflucan) 150 MG tablet Take 1 tablet (150 mg) by mouth 1 (one) time for 1 dose. 1 tablet 08/25/19 25 025 Active cyclobenzaprin e (Flexeril) 5 MG tablet 5 mg. 08/11/19 23 025 Discontinued(Th erapy completed) cloNIDine (Catapres) 0.1 MG tabletIndicati ons:Marijuana use Take 1 tablet (0.1 mg) by mouth 2 times daily. 180 tablet 3 09/08/19 24 025 Discontinued(Re order (will not trigger notification to Pharmacy)) hydrOXYzine HCl (Atarax) 10 MG tablet Take 1-2 tablets (10-20 mg) by mouth every 6 (six) hours if needed for anxiety. Take at first sign of panic attack 90 tablet 5 09/08/19 24 025 Discontinued(Re order (will not trigger notification to Pharmacy)) topiramate (Topamax) 100 MG tablet Take 1 tablet (100 mg) by mouth 2 times daily. 180 tablet 3 09/08/19 24 025 Discontinued(Re order (will not trigger notification to Pharmacy)) fexofenadine (Hannah) 180 MG tablet Take 1 tablet (180 mg) by mouth if needed each day (Allergies). 90 tablet 1 10/05/19 24 025 Discontinued azithromycin (Zithromax) 250 MG tablet Take 2 tabs PO daily x 1d then 1 tab PO daily on D2 to D5 6 tablet 12/01/19 025 Discontinued(Th erapy completed) Active Problems Problem Noted Date Diagnosed Date Class 2 obesity due to exces s calories without serious comorbidity with body mass index (BMI) of 37.0 to 37.9 in adult 08/24/2024 Assessment & Plan (08/24/2024 1:24 PM EDT): Discussed re weight reduction options including exercise, life style modifications, diet. Recommended to decrease soda and sugary beverage consumption, increase protein intake with meals (at least 1 portion of protein with each meal) to assist with satiety, increase dietary fiber Recommended at least 150 min/week of moderate intensity exercise. Encouraged to be complaint with Topamax which she takes as a mood stablilizer, I may consider other meds once she is more clear re future plans. Agreed to a referral to dietitian FU in 3mo Dyspareunia, female 08/24/2024 Assessment & Plan (08/24/2024 2:35 PM EDT): Will rx Diflucan due to white vaginal discharge. FU at next RV Left ovarian cyst 08/24/2024 Assessment & Plan (08/24/2024 2:34 PM EDT): Repeat pelvic ultrasound and follow-up results with patient Dental caries on smooth surface limited to [...] develops hives or swelling again. 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 Avoid contact with cats, consider moving to a building where animals are not allowed. Skin tag of female perineum 02/06/2023 Assessment & Plan (02/06/2023 10:35 AM EST): On perineum area, she will f/u with me in 4 weeks for skin tag removal HPV in female 02/06/2023 Assessment & Plan (08/24/2024 1:26 PM EDT): PAP smear done today, will fu results. We discussed re CLERICAL INVESTIGATOR referral if test is POS, she agreed with POC. Will fu in 1mo. Assessment & Plan (03/27/2023 11:16 AM EST): [...] have Perphenazine 2 mg BID, as above. Encounter for cervical Pap smear with pelvic exa m 08/19/2022 Assessment & Plan (08/24/2024 2:33 PM EDT): FU pap smear results/HPV/STI testing and will call back PRN positive results or FU in 1 month. Pt feels safe at home no concern for DV Counseled regarding STI prevention, she's on a mutual monogamous relationship Pt completed HPV vaccines in 2008. FU in 4 weeks. Assessment & Plan (08/19/2022 12:37 PM EDT): [...] get written evidence of Influenza in [facility] [employer] Breaster about COVID vaccine booster at earliest convenience. [...] medication management. Any issues or concerns contact [facility]. All her questions were answered and [...] me in 6 [facility]. [facility] Assessment & Plan (04/28/2022 12:59 PM EST): [...] me in 3 weeks. [facility] Assessment & Plan (04/07/2022 4:10 PM EST): [...] me in 1 month. [facility] Assessment & Plan (03/04/2022 4:25 PM EST): [...] me in 1 month. She agrees with theplan Recurrent major depressive episodes, moderate Assessment & Plan (08/24/2024 1:52 PM EDT): She has been off Perphenazine for at least 6 mo and irregularly taking Topamax. Advised to regularly take Topamax 100 mg bid + Clonidine bid, I will fu in 4mo and restart Perphenazine if she doesn't plan a within the next year, otherwise I'll changing it to a Class A or B neuroleptic. I gave her info re BH referral to [facility] She feels safe at home and is able to reach out for safety. Assessment & Plan (10/05/2023 12:54 PM EDT): [...] will reschedule pap smear in 3-4 weeks Resolved Problems Problem Noted Date Diagnosed Date Resolved Date Bacterial vaginitis 08/21/2022 08/25/19 25 Encounters Date Type Department Care Team Description 08/24/2024 10:30 AM EDT Office Visit [facility] [address] [place] [phone] Zunilda Ignacio MD 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); Left ovarian cyst; Encounter for cervical Pap smear with pelvic exam; Recurrent major depressive episodes, moderate (CMS/HCC); Class 2 obesity due to excess calories without serious comorbidity with body mass index (BMI) of 37.0 to 37.9 in adult; Dyspareunia, female; Dietary counseling; Exercise counseling 08/24/2024 Travel 08/23/2024 Telephone [facility] [address] [place] [address] Zunilda Ignacio MD chart prep 08/09/2024 Refill [facility] [address] [place] [address] Zunilda Ignacio MD 07/13/2024 Results Follow-Up [facility] [address] [place] [address] Abdomen Pelvis w/ Contrast 07/08/2024 Orders Only [facility] External Provider, [facility] 06/20/2024 Telephone [facility] [address] [place] [address] Zunilda Ignacio MD Nurse Triage 06/03/2024 Patient Outreach [facility] [address] [place] [address] Zunilda Ignacio MD Pre-visit Planning ((Unable to reach for PVP screening, LVM)) from Last 3 Months Immunizations Immunization Administration Dates Next Due DTaP 06/23/1997, 5,1993,06/23,1993 HPV, Quadrivalent 09/28/2008,04/06/2007 Hep B, Adolescent or Pediatric 1993,1993 Hep B, adult 01/03/2021 Hib ([facility]) 09/23/1994, 4,1993,04/23 IPV 06/23/1997, 4,1993,04/23 Influenza injectable [...] Date Smoking Tobacco: Never Smokeless Tobacco: Never Tobacco Cessation:Counseling Given: Not Answered Alcohol Use Standard Drinks/Week Comments Not Currently [...] Answer Date Recorded Patient Health Questionnaire-9 Score 9 08/24/2024 Patient Health Questionnaire-9 Score 9 08/24/2024 Last PHQ-9: Questionnaire Data Not on file 0 08/24/2024 Housing Stability Answer Date Recorded What is your housing situation today? I have jerry burk 08/24/[address] you li ve. Do you have problems with any of the following? None of the above 08/24/2024 Food Insecurity Answer Date Recorded Within the past 12 months, y ou worried that your food would run out before you got money to buy more: Never True 08/24/2024 Within the past 12 months,th e food you bought just didn't last and you didn't have enough money to get more: Never True 03/2024 Transportation Answer Date Recorded In the past 12 months, has l ack of transportation kept you from medical appts, meetings, work or from getting things needed for daily living? No 08/24/2024 Utilities Answer Date Recorded In the past 12 months, has t he electric, gas, oil or water company threatened to shut off services in your home? No 08/24/2024 Depression Answer Date Recorded Patient Health Questionnaire-2 Score 2 08/24/2024 Internet Access Answer Date Recorded Internet Access Q1 No 08/24/2024 Internet Access Q2 I do not want or need it 03/2024 Comments No Sex and Gender Information Value Date Recorded Sex Assigned at Female 12/23/2021 10:15 AM EDT Legal Sex Female 10:15 AM EDT Gender Identity Female 12/23/2021 10:15 AM EDT Sexual Orientation Choose not to disclose 2021 10:15 AM EDT Last Filed Vital Signs Vital Sign Reading Time Taken Comments Blood Pressure 116/76 08/24/2024 10:45 AM EDT Pulse 84 08/24/2024 10:45 AM EDT Temperature 36.9 C (98.4 F) 08/24/2024 10:45 AM EDT Respiratory Rate 16 08/24/2024 10:45 AM EDT Oxygen Saturation 99% 12/30/2023 4:08 PM EST Inhaled Oxygen Concentration - - Weight 88.9 kg (196 lb) 08/24/2024 10:45 AM EDT Height 154.9 cm (5' 1 ) 08/24/2024 10:45 AM EDT Body Mass Index 37.03 08/24/2024 10:45 AM EDT Plan of Treatment Upcoming Encounters Date Type Department Care Team (Late st Contact Info) Description 09/26/2024 3:00 PM EDT Office Visit [facility] [address] [place] [phone] Zunilda Ignacio MD [address] [place] [address] 11/21/2024 3:00 PM EDT Office Visit [facility] [address] [place] [address] Debbie Moran Health Maintenance Due Date Last Done Comments Family Planning (PISQ) 2008 Dental Oral Exam 12/26/2017 06/24/2017, 04/29/2016 COVID-19 Vaccine ( season) 2023 12/18/2021, 07/12/2020, 06/14/2020 Dental Prophylaxis 08/23/2024 02/22/2024, 0 08/11/2017, 07/08/2016 Influenza Vaccine (#1) 2024 3, 12/18/2021, 01/03/2021, Additional history exists Dental X-Ray: Bitewings 02/22/2025 02/22/20 24, 06/24/2017, 04/29/2016 Depression Monitoring 02/24/2025 08/24/2024, 025 Pap Smear 08/19/2025 08/19/2022 Alcohol/Substance Use Screening 08/24/2025 08/24/2024 Disability Screening 08/24/2025 08/24/2024 SDOH Screening 08/24/2025 08/24/2024 Tobacco Screening 08/24/2025 08/24/2024 Dental X-Ray: Full Mouth 02/22/2027 024, 07/09/2017, 04/29/2016 Cervical Cancer Screening 08/20/2027 HPV/Cotest 08/20/2027 08/19/2022, 08/19/2022 Lipid Panel 02/18/2028 02/17/2023 DTaP/Tdap/Td Vaccines (9 - Td or Tdap) [...] Years) and At-Risk Patients (6 to 49) Years Completed 02/06/2023, 2014 HIV Screening Completed 02/17/2023, [...] Procedure Name Priority Date/Time Associated Diagnosis Comments CT ABDOMEN PELVIS W CONTRAST Routine 07/08/2024 10:31 AM EDT PROPHYLAXIS - ADULT Routine 02/22/2024 1 :00 PM EST Dental calculus Dental plaque Tartar deposits on teeth INTRAORAL - COMPLETE SERIES OF RADIOGRAPHIC IMAGES Routine 02/22/2024 1:00 PM EST HEPATITIS PANEL, GENERAL Routine 02/17/2023 11:33 AM EST Encounter for preventive health examination HIV 1/2 ANTIGEN/ANTIBODY, FOURTH GENERATION W/RFL Routine 02/17/2023 11:33 AM EST Encounter for preventive health examination LIPID PANEL WITH REFLEX TO DIRECT LDL Routine 02/17/2023 11:33 AM EST Encounter for [...] Recently Relevant to Health Maintenance Results * CT Abdomen Pelvis w/ Contrast (07/08/2024 10:31 AM EDT) Anatomical Region Laterality Modality Body, Pelvis, Abdomen Computed T omography 07/08/2024 10:3 1 AM EDT Narrative 07/08/2024 10:53 AM EDT [place] [address] CT Scan Report Signed Patient: Eleonora Tellez MR#: [id number] 2 : 1995 Acct:[id number] Age/Sex: 29 / F ADM Date: 07/08/24 Loc: HO.ED Attending Dr: Ordering Physician: Sanaz Bass MD Date of Service: 07/08/24 Procedure(s): CT abdomen pelvis w IV con Accession Number(s): [id number] cc: Zunilda Ignacio MD; Sanaz Bass MD Report Number: [id number]: Total DLP = 788.00 mGy-cm EXAMINATION: CT ABDOMEN AND PELVIS WITH CONTRAST CLINICAL INFORMATION: Epigastric pain. COMPARISON: Numerous priors, most recently 06/08/2021. TECHNIQUE: Multidetector volumetric images were obtained from the superior aspect of the liver through the pubic symphysis following administration 85 mL of Omnipaque 350 intravenous contrast. Sagittal and coronal reformatted images were obtained on the technologist's workstation. Oral contrast: No This CT examination was performed using dose optimization techniques as appropriate, variously including the following: *Automated exposure control *Adjustment of mA and/or kV according to patient size (this includes techniques or standardized protocols for targeted exams where dose is matched to indication/reason for exam; i.e. extremities or head) *Use of iterative reconstruction technique FINDINGS: LUNG BASES: Lung bases are clear. Small type I hiatus hernia. No effusions. LIVER, GALLBLADDER, AND BILIARY TREE: The liver is normal in size, shape, and attenuation. No focal hepatic lesion or biliary ductal dilatation is present. The gallbladder is unremarkable with no evidence of radiopaque gallstones, gallbladder wall thickening, or obvious pericholecystic inflammatory changes. PANCREAS: Unremarkable. SPLEEN: Unremarkable. ADRENAL GLANDS: Unremarkable. KIDNEYS AND URETERS: The kidneys are normal in size, shape, and attenuation. No hydronephrosis, hydroureter, or calculi seen. No perinephric stranding. BLADDER: Unremarkable. GASTROINTESTINAL TRACT: There appears to be wall thickening of the entire colon with mild hyperemia of the mesentery. There may be rectal sparing. Normal appendix noted. The small bowel is normal in caliber and course and appearance. Small type I hiatus hernia. ABDOMINAL WALL: No significant hernia is appreciated. LYMPH NODES: Normal. VASCULAR: Unremarkable. PELVIC VISCERA: There is a left adnexal/ovarian cyst measuring 4.3 x 4.2 cm, stable from numerous prior exams. The uterus and right ovary appear normal. OSSEOUS STRUCTURES: No suspicious lytic or blastic bone lesions. CT/CT abdomen pelvis w IV con IMPRESSION: 1. Pancolitis. This could be infectious or inflammatory. 2. Small type I hiatal hernia. 3. Left ovarian/adnexal cyst measuring 4.3 x 4.2 cm, stable from numerous prior examinations and consistent with a benign entity. Electronically signed by: Nathan Patriico MD 07/08/2024 10:50 AM EDT RP Dictated By: Nathan Patricio MD Signed By: <Electronically signed by Nathan Patricio MD in OV> 07/08/24 1050 DD/ 1031 TD/TT: 07/08/24 1031 Byproducts Operator: Procedure Note Donotuseinterpreter, Image - 07/11/[address] [place] [address] [address] Scan Report Signed Patient: Eleonora TellezMR#: [id number] 2 : 1995Acct:[id number] Age/Sex: Date: 07/08/24 Loc: HO.ED Attending Dr: Ordering Physician: Sanaz Bass MD Date of Service: 07/08/24 Procedure(s): CT abdomen pelvis w IV con Accession Number(s): [id number] cc: Zunilda Ignacio MD; Sanaz Bass MD Report Number: [id number]: Total DLP = 788.00 mGy-cm EXAMINATION: CT ABDOMEN AND PELVIS WITH CONTRAST CLINICAL INFORMATION: Epigastric pain. COMPARISON: Numerous priors, most recently 06/08/2021. TECHNIQUE: Multidetector volumetric images were obtained from the superior aspect of the liver through the pubic symphysis following administration 85 mL of Omnipaque 350 intravenous contrast. Sagittal and coronal reformatted images were obtained on the technologist's workstation. Oral contrast: No This CT examination was performed using dose optimization techniques as appropriate, variously including the following: *Automated exposure control *Adjustment of mA and/or kV according to patient size (this includes techniques or standardized protocols for targeted exams where dose is matched to indication/reason for exam; i.e. extremities or head) *Use of iterative reconstruction technique FINDINGS: LUNG BASES: Lung bases are clear. Small type I hiatus hernia. No effusions. LIVER, GALLBLADDER, AND BILIARY TREE: The liver is normal in size, shape, and attenuation. No focal hepatic lesion or biliary ductal dilatation is present. The gallbladder is unremarkable with no evidence of radiopaque gallstones, gallbladder wall thickening, or obvious pericholecystic inflammatory changes. PANCREAS: Unremarkable. SPLEEN: Unremarkable. ADRENAL GLANDS: Unremarkable. KIDNEYS AND URETERS: The kidneys are normal in size, shape, and attenuation. No hydronephrosis, hydroureter, or calculi seen. No perinephric stranding. BLADDER: Unremarkable. GASTROINTESTINAL TRACT: There appears to be wall thickening of the entire colon with mild hyperemia of the mesentery. There may be rectal sparing. Normal appendix noted. The small bowel is normal in caliber and course and appearance. Small type I hiatus hernia. ABDOMINAL WALL: No significant hernia is appreciated. LYMPH NODES: Normal. VASCULAR: Unremarkable. PELVIC VISCERA: There is a left adnexal/ovarian cyst measuring 4.3 x 4.2 cm, stable from numerous prior exams. The uterus and right ovary appear normal. OSSEOUS STRUCTURES: No suspicious lytic or blastic bone lesions. CT/CT abdomen pelvis w IV con IMPRESSION: 1. Pancolitis. This could be infectious or inflammatory. 2. Small type I hiatal hernia. 3. Left ovarian/adnexal cyst measuring 4.3 x 4.2 cm, stable from numerous prior examinations and consistent with a benign entity. Electronically signed by: Nathan Patricio MD 07/08/2024 10:50 AM EDT Dictated By: Nathan Patricio MD Signed By: <Electronically signed by Nathan Patricio MD in OV> 07/08/24 1050 DD/ 1031 TD/TT: 07/08/24 1031 Byproducts Operator: us [facility] External Provider IMG CT PROCEDURES Edited Result - Final * Lipid Panel with Reflex to Direct LDL (02/17/2023 11:33 AM EST) Triglycerides 50 <150 mg/dL [facility] Comment:Desirable Triglyceri de: less than 150 mg/dLBorderline High Triglyceride 150-199 mg/dLHigh Triglyceride: 200-499 mg/dLVery High Triglyceride: greater than or equal to 5OO mg/dL Cholesterol 136 <200 mg/dL [facility] Comment:Desirable Cholestero l: less than 200 mg/dLBorderline High Cholesterol: 200-239 mg/dLHigh Cholesterol: greater than 239 mg/dL LDL Cholesterol Calculated 69 <100 mg/dL [facility] Comment:Desirable LDL: less than 100 mg/dLNear Optimal/Above Optimal LDL: 110- 129 mg/dLBorderline High LDL: 130-159 mg/dLHigh LDL: 160-189 mg/dLVery High LDL: greater than or equal to 190 mg/dL HDL Cholesterol 57 >40 mg/dL [facility] Comment:Desirable HDL: great er than 40 mg/dL Note: This HDL assay may give artificially low results in patients with liver disease. Blood 02/17/2023 11:3 3 AM EST 02/17/2023 1:09 PM EST Zunilda Ignacio MD LAB BLOOD ORDERABLES Fin al Result Performing Organization Address [facility] de Phone Number [facility] [address] [place] [phone] * Hepatitis Panel, General (02/17/2023 11:33 AM EST) Hepatitis A IgM Nonreactive Nonreactive [facility] Comment:IgM antibodies to ONEILL V not detected; does not exclude earlyacute or recovered HAV infection. ~Hepatitis B Surface Antibody REACTIVE Nonreactive [facility] Comment:REACTIVE: > 11.99 mI U/mL Hepatitis B Core Antibody Nonreactive Nonreactive [facility] Hepatitis C Antibody Nonreactive Nonreactive [facility] Comment:Antibodies to HCV no t detected; does not exclude early acuteHCV infection. Hepatitis B Surface Ag Negative Negative [facility] Blood 02/17/2023 11:3 3 AM EST 02/17/2023 1:09 PM EST Zunilda Ignacio MD LAB BLOOD ORDERABLES Fin al Result Performing Organization Address [facility] Co de Phone Number [facility] [address] [place] [phone] * HIV-1/2 Antigen and Antibodies, Fourth Generation, with Reflexes (02/17/2023 11:33 AM EST) HIV AB/AG Nonreactive Nonreactive [facility] Comment:HIV-1 p24 Ag and/or HIV-1/HIV-2 Ab not detected.A test result that is nonreactive does not exclude thepossibility of exposure to or infection with HIV-1 and/orHIV-2. Nonreactive results in this assay for individualswith prior exposure to HIV-1 and/or HIV-2 may be due toantigen and antibody levels that are below the limit ofdetection of this assay.The [employer] HIV Ag/Ab Combo assay result andsupplemental assay results should be interpreted inconjunction with the patient's clinical presentation,history and other laboratory results. If the results areinconsistent with clinical evidence, additional testing issuggested to confirm the result. Blood Venous blood specimen / Unknown 02/17/2023 11:33 AM EST 02/17/2023 1:09 PM EST Zunilda Ignacio MD LAB BLOOD ORDERABLES Fin al Result [facility] [address] [place] [phone] * (ABNORMAL) Thinprep TIS PAP And HPV mRNA E6/E7 With Reflex To HPV 16,18/45 (08/19/2022 12:39 PM EDT) Clinical Information: Routine exam [facility] LMP: NONE GIVEN [facility] Prev. PAP: NONE GIVEN [facility] Prev. BX: NO [facility] SOURCE: None given [facility] Statement Of Adequacy: [facility] Comment: Satisfactory for evaluation. Endocervical/transformation zone component absent. Interpretation/ Result: Negative for intraepithelial lesion or malignancy. [facility] Infection Shift in vaginal melanie suggestive of bacterial vaginosis. [facility] [employer] COMMENT: This Pap test has been evaluated with computer assisted technology. [facility] [employer] Cytotechnologis t: [facility] [employer] Comment: WAC, CT(ASCP) CT screening location: [address] [address] Review Cytotechnologis t: [facility] [employer] Comment: RMM, CT(ASCP) CT screening location: [place] [address] (Always Message) [facility] [employer] Comment: EXPLANATORY NOTE: The Pap is a [...] information. HPV nRNA E6/E7 Detected(A) Not Detected [facility] [employer] Comment: Methodology: Towel Hemmer-Mediated Amplification This assay detects E6/E7 viral messenger RNA (mRNA) from 14 high-risk HPV types (16,18,31,33,35,39,45,51,52,56,58,59,66,68). Cervical sources are required for HPV testing. If a vaginal source from a patient who has had a total hysterectomy with removal of cervix was submitted, please contact the testing laboratory for alternative testing options. For additional information, please refer to http://education.SNTMNT/faq/RVB657q0 (This link if provided for information/ educational purposes only.) Genital 08/19/2022 12:3 9 PM EDT 08/20/2022 3:04 AM EDT Zunilda Ignacio MD LAB PATHOLOGY ORDERABLES Final Result [facility] [address], [place] [phone] [facility] [employer] [address] [place] [phone] * HPV Genotypes 16,18/45 (08/19/2022 12:39 PM EDT) HPV 16 RNA NOT DETECTED NOT DETECTED [facility] [employer] HPV 18/45 RNA NOT DETECTED NOT DETECTED [facility] [employer] Comment: Methodology: Towel Hemmer Mediated Amplification Cervical sources are required for HPV testing. If a vaginal source from a patient who has had a total hysterectomy with removal of cervix was submitted, please contact the testing laboratory for alternative testing options. 08/19/2022 12:3 9 PM EDT 08/20/2022 3:04 AM EDT Zunilda Ignacio MD LAB CYTOLOGY ORDERABLES Final Result [facility] [address], [place] [address] [employer] [place] [employer] [address] [place] [address] from Last 3 Months or Most Recently Relevant to Health Maintenance Insurance [facility] < 65 DAVID FREEMAN [id number] [facility] Care Teams Compressor Station Operator Relationship Specialty Start Date End Date Zunilda Ignacio MD [address] [place] [id number] PCP - General Family Medicine 02/29/16 Benson Waters FNP [address] [place] [id number] Nurse Practitioner Family Medicine 01/23/23
[2024-08-24 20:50] LABS: Bacterial Vaginosis PCR NEGATIVE (Negative); Candida Group PCR NOT DETECTED (Not Detect); Candida glab krusei PCR NOT DETECTED (Not Detect); Trichomonas vaginalis PCR NOT DETECTED (Not Detect)
[2024-08-24 22:39] LABS: CT PCR NOT DETECTED (Not Detect.); NG PCR NOT DETECTED (Not Detect.)
== END 2024-08-24 16:02 | disposition home or self-care (01) ==
LOC: HO.HHCLNP 16:01
PROVIDERS: Visit Provider Internal Medicine
DX: Z01.419 Encounter for gynecological examination (general) (routine) without abnormal findings (principal); Z11.51 Encounter for screening for human papillomavirus (HPV); B97.7 Papillomavirus as the cause of diseases classified elsewhere; Z20.2 Contact with and (suspected) exposure to infections with a predominantly sexual mode of transmission
CPT/HCPCS: 81515; 87491; 87591; 87626; 88175

== ENCOUNTER 2024-10-19 12:12 | Outpatient (REF) | payer OTHER, SELFPAY ==
--- NOTE | ~2024-10-19 | XR_ITS ---
EXAMINATION: XR CHEST CLINICAL INFORMATION: productive cough, fever COMPARISON: 06/08/2021. TECHNIQUE: 2 views of the chest were obtained. FINDINGS: The cardiac, hilar, and mediastinal contours are normal. The lungs are clear bilaterally. There is no pneumothorax or pleural effusion. There is no focal osseous or soft tissue abnormality. XR/XR chest 2V IMPRESSION: Normal chest. Electronically signed by: Nathan Patricio MD 10/19/2024 12:25 PM EDT
--- OUTSIDE RECORDS SUMMARY | 2024-10-19 12:56 | XMS_ITS | Encounter Summary ---
Author Organization [employer] Address [address] [place] [address] Care Team Providers Care Ruby Rails Developer Name Role Phone Zunilda Ignacio MD Primary Care Provider + Benson Waters Unavailable Unavailable Encounter Details Date Type Department Care Team (Latest Contact Info) Description 10/19/2024 Travel Social History Tobacco Use Types Packs/Day Years Used Date Smoking Tobacco: Former Cigarettes Smokeless Tobacco: Never Alcohol Use Standard Drinks/Week [...] Care Team (Late st Contact Info) Description 10/19/2024 3:00 PM EDT Office Visit [facility] [address] [place] [address] Mild intermittent asthma with acute exacerbation (Primary Dx); Viral URI with cough 11/14/2024 11:00 AM EDT Nutrition [facility] [address] [place] [address] Misty Mata, RD [address] [place] [address] 11/21/2024 3:00 PM EDT Office Visit [facility] [address] [place] [address] Debbie Moran 02/10/2025 1:00 PM EST Office Visit [facility] [address] [place] [address] Wiley, Lesley, OD [address] [place] [address] documented as of this encounter Visit Diagnoses Not on filedocumented in this encounter Additional Health Concerns Assessment Noted Time PHQ-9 Depression Total Score: 9 08/25/19 25 11:54 AM EDT documented as of this encounter Care Teams Ruby Rails Developer Relationship Specialty Start Date End Date Zunilda Ignacio MD [address] [place] [address] PCP - General Family Medicine 02/29/16 Benson Waters FNP [address] [place] [id number] Nurse Practitioner Family Medicine 01/23/23 documented as of this encounter
--- OUTSIDE RECORDS SUMMARY | 2024-10-19 12:56 | XMS_ITS | Encounter Summary ---
Author Organization [employer] Address [address] [place] [address] Care Team Providers Care Bingo Clerk Name Role Phone Zunilda Ignacio MD Primary Care Provider + Benson Waters Unavailable Unavailable Encounter Details Date Type Department Care Team ([facility] st Contact Info) Description 08/21/2022 Orders Only [facility] [address] [place] [address] Zunilda Ignacio MD [address] [place] [address] Bacterial vaginitis (Primary Dx) Social History Tobacco [...] Description 10/19/2024 3:00 PM EDT Office Visit [facility] [address] [place] [address] Mild intermittent asthma with acute exacerbation (Primary Dx); Viral URI with cough 11/14/2024 11:00 AM EDT Nutrition [facility] [address] [place] [address] Misty Mata, RD [address] [place] [address] 11/21/2024 3:00 PM EDT Office Visit [facility] [address] [place] [address] Debbie Moran 02/10/2025 1:00 PM EST Office Visit [facility] [address] [place] [address] Wliey, Lesley, OD [address] [place] [address] documented as of this encounter Procedures Procedure Name Priority Date/Time Associated Diagnosis Comments HEPATIC FUNCTION PANEL Routine 02/17/2023 11:33 AM EST Bacterial vaginitis documented in this encounter Results * Hepatic Function Panel (02/17/2023 11:33 AM EST) Bilirubin, Total 0.3 0.0 - 1.0 mg/dL [facility] Bilirubin, Direct 0.1 0.0 - 0.5 mg/dL [facility] Aspartate Amino Transferase 18 5 - 31 U/L [facility] Alanine Aminotransferase 15 0 - 31 U/L [facility] Total Protein 6.8 6.5 - 8.0 g/dL [facility] Albumin Level 4.2 3.5 - 5.0 g/dL [facility] Alkaline Phosphatase 67 39 - 117 U/L [facility] 02/17/2023 11:3 3 AM EST 02/17/2023 1:09 PM EST Zunilda Ignacio MD LAB BLOOD ORDERABLES Fin al Result [facility] [address] [place] [phone] documented in this encounter Visit Diagnoses Diagnosis Bacterial vaginitis- Primary Unspecified vaginitis and vulvovaginitis Mild intermittent asthma with acute exacerbation- Primary Viral URI with cough documented in this encounter Additional Health Concerns Assessment Noted Time PHQ-9 Depression Total Score: 3 04/29/19 23 11:36 AM EST documented as of this encounter Care Teams Bingo Clerk Relationship Specialty Start Date End Date Zunilda Ignacio MD [address] [place] [address] PCP - General Family Medicine 02/29/16 Benson Waters FNP [address] [place] [phone] Nurse Practitioner Family Medicine 01/23/23 documented as of this encounter
--- OUTSIDE RECORDS SUMMARY | 2024-10-19 12:56 | XMS_ITS | Encounter Summary ---
Author Organization [employer] Address [address] [place] [address] Care Team Providers Care Twine Reeling Machine Operator Name Role Phone Zunilda Ignacio MD Primary Care Provider + Benson Waters Unavailable Unavailable Reason for Visit * Reason Onset Date Comments Nurse Triage 06/20/2024 Encounter Details Date Type Department Care Team ([facility] Contact Info) Description 06/20/2024 Telephone [facility] [address] [place] [address] Zunilda Ignacio MD [address] [place] [address] Nurse Triage Social History Tobacco Use Types [...] the past 12 months, has t he [facility], gas, oil or water [employer] threatened to shut off services in your [...] become worse * Telephone Encounter - Baldemar Giacomo - 06/20/2024 10:36 AM EDT Symptoms: Vaginal [...] Description 10/19/2024 3:00 PM EDT Office Visit [facility] [address] [place] [address] Mild intermittent asthma with acute exacerbation (Primary Dx); Viral URI with cough 11/14/2024 11:00 AM EDT Nutrition [facility] [address] [place] [address] Misty Mata, GLADIS [address] [place] [address] 11/21/2024 3:00 PM EDT Office Visit [facility] [address] [place] [address] Debbie Moran 02/10/2025 1:00 PM EST Office Visit [facility] [address] [place] [address] Wiley, Lesley, OD [address] [place] [address] documented as of this encounter Visit Diagnoses Not on filedocumented in this encounter Additional Health Concerns Assessment Noted Time PHQ-9 Depression Total Score: 11 16/2 024 10:25 AM EDT documented as of this encounter Care Teams Twine Reeling Machine Operator Relationship Specialty Start Date End Date Zunilda Ignacio MD [address] [place] [phone] PCP - General Family Medicine 02/29/16 Benson Waters FNP [address] [place] [phone] Nurse Practitioner Family Medicine 01/23/23 documented as of this encounter
--- OUTSIDE RECORDS SUMMARY | 2024-10-19 12:56 | XMS_ITS | Clinical Summary ---
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 180 tablet 3 09/08/19 24 Active fexofenadine (Hannah) 180 MG tablet TAKE 1 TABLET BY MOUTH EVERY DAY NEEDED FOR ALLERGIES 90 tablet 1 08/10/19 25 Active cloNIDine (Catapres) 0.1 MG tabletIndicat ions:Recurren t major depressive episodes, moderate (CMS/HCC) Take 1 tablet (0.1 mg) by mouth 2 times daily. 180 tablet 3 08/25/19 25 Active hydrOXYzine HCl (Atarax) 10 MG tabletIndicat ions:Recurren t major depressive episodes, moderate (CMS/HCC) Take 1-2 tablets (10-20 mg) by mouth every 6 (six) hours if needed for anxiety. Take at first sign of panic attack 90 tablet 5 08/25/19 25 Active topiramate (Topamax) 100 MG tablet Take 1 tablet (100 mg) by mouth 2 times daily. 180 tablet 3 08/25/19 25 Active albuterol 108 (90 Base) MCG/ACT inhalerIndica tions:Viral URI with cough Inhale 2 puffs every 4 (four) hours if needed for wheezing. 18 g 3 10/20/19 25 Active Spacer/Aero-H olding Chambers (OptiChamber Sherlyn) misc 1 each every 4 (four) hours if needed (asthma). 1 each 10/20/19 25 Active predniSONE (Deltasone) 20 MG tablet Take 2 tablets (40 mg) by mouth Once per day for 5 days. 10 tablet 10/20/19 25 025 Active Misc. Devices (Pulse Oximeter For Finger) misc 1 each 2 times daily. 1 each 10/20/19 25 Active albuterol (2.5 MG/3ML) 0.083% nebulizer solution Take 3 mL (2.5 mg) by nebulization every 6 (six) hours if needed for wheezing or shortness of breath. 75 mL 3 10/20/19 25 Active Nebulizers misc 1 kit Every 4-6 hours as needed (for SOB wheezing). Active azithromycin (Zithromax Z-Rio) 250 MG tablet Take 2 tablets once on day 1, then 1 tablet 1x/day for 4 days. Avoid hydroxyzine (Atarax) when taking Zithromax. 6 tablet 10/20/19 25 Active albuterol 108 (90 Base) MCG/ACT inhalerIndica tions:Viral URI with cough Inhale 2 puffs every 6 (six) hours if needed for wheezing. 18 g 3 12/01/19 24 025 Discontinued(R eorder (will not trigger notification to Pharmacy)) Hospital, Clinic, or Other Facility Administered Medication Ordered Dose Route Frequency Start Date End Date Status ipratropium-albutero l (Duo-Neb) 0.5-2.5 mg/3 mL nebulizer solution 3 mgIndications:Mild intermittent asthma with acute exacerbation 3 mg NEBULIZATION Once 10/19/2024 10/19/2024 Ended acetaminophen (Tylenol) tablet 975 mgIndications:Mild intermittent asthma with acute exacerbation 975 mg PO Once 10/19/2024 10/19/2024 Ended predniSONE (Deltasone) tablet 40 mgIndications:Mild intermittent asthma with acute exacerbation 40 mg PO Once 10/19/2024 10/19/2024 Ended Active Problems Problem Noted Date Diagnosed Date [...] develops hives or swelling again. Refer to secretary of police. Avoid contact with cats, consider moving to a building where animals are not allowed. Skin tag of female perineum 02/06/2023 Assessment & Plan (02/06/2023 10:35 AM EST): On perineum area, she will f/u with me in 4 weeks for skin tag removal HPV in female 02/06/2023 Assessment & Plan (08/24/2024 1:26 PM EDT): PAP smear done today, will fu results. We discussed re GAME DESIGNER/CREATIVE DIRECTOR referral if test is POS, she agreed [...] get written evidence of Influenza in [facility]. 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 [...] management. Any issues or concerns contact [facility]. All her questions were answered [...] that provider would be retiring in approx /, but we would make every effort to [...] [facility]. [facility] Assessment & Plan (04/28/2022 12:59 PM EST): [...] me in 3 weeks. She agrees with [facility] Assessment & Plan (04/07/2022 4:10 PM EST): [...] in 1 month. She agrees with theplan Assessment & Plan (03/04/2022 4:25 PM EST): [...] me in 1 month. [facility] Recurrent major depressive episodes, moderate Assessment & [...] gave her info re BH referral to [facility] She feels safe at home and is [...] Encounters Date Type Department Care Team Description 10/19/2024 3:00 PM EDT Office Visit [facility] [address] [place] [phone] Mild intermittent asthma with acute exacerbation (Primary Dx); Viral URI with cough 10/19/2024 Travel 10/13/[address] [address] Zunilda Ignacio MD Referral 09/30/2024 Travel 09/23/[address] [phone] Zunilda Ignacio MD CHART PREP 08/24/2024 10:30 AM EDT Office Visit [address] [address] Zunilda Ignacio MD 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); Left ovarian cyst; Encounter for cervical Pap smear with pelvic exam; Recurrent major depressive episodes, moderate (CMS/HCC); Class 2 obesity due to excess calories without serious comorbidity with body mass index (BMI) of 37.0 to 37.9 in adult; Dyspareunia, female; Dietary counseling; Exercise counseling 08/24/2024 Travel 08/23/[address] [address] Zunilda Ignacio MD chart prep 08/09/[address] [address] Zunilda Ignacio MD from Last 3 Months Immunizations Immunization Administration Dates Next Due DTaP 06/23/1997, 5,1993,06/23,1993 HPV, Quadrivalent 09/28/2008,04/06/2007 Hep B, Adolescent or Pediatric 1993,1993 Hep B, adult 01/03/2021 Hib (HbOC) 09/23/1994, 4,1993,04/23 IPV 06/23/1997, 4,1993,04/23 Influenza injectable [...] Smoking Tobacco: Former Cigarettes Smokeless Tobacco: Never Tobacco Cessation:Counseling Given: Not [...] is your housing situation today? I have jerrylang burk 08/24/[address] you [...] the past 12 months, has t he [employer], [employer], oil or water [employer] threatened to shut off services in your [...] Sign Reading Time Taken Comments Blood Pressure 128/95 10/19/2024 11:39 AM EDT Pulse 115 10/19/2024 11:39 AM EDT Temperature 37.3 C (99.2 F) 10/19/2024 11:39 AM EDT Respiratory Rate 21 10/19/2024 11:39 AM EDT Oxygen Saturation 97% 10/19/2024 11:39 AM EDT Inhaled Oxygen Concentration - - Weight 88.9 kg (196 lb) 08/24/2024 10:45 AM EDT Height 154.9 cm (5' 1 ) 08/24/2024 10:45 AM EDT Body Mass Index 37.03 08/24/2024 10:45 AM EDT Plan of Treatment Upcoming Encounters Date Type Department Care Team (Late st Contact Info) Description 10/19/2024 3:00 PM EDT Office Visit [facility] [address] [place] [address] Mild intermittent asthma with acute exacerbation (Primary Dx); Viral URI with cough 11/14/2024 11:00 AM EDT Nutrition [facility] DIABETES/NUTRITION [address] [place] [address] Misty Mata, GLADIS [address] [place] [address] 11/21/2024 3:00 PM EDT Office Visit [facility] ADULT DENTAL [address] [place] [address] Debbie Moran 02/10/2025 1:00 PM EST Office Visit [facility] OPTOMETRY [address] [place] [address] Lesley Jama, OD [address] [place] [address] Health Maintenance Due Date Last Done Comments Family Planning (PISQ) 2008 Dental Oral Exam 12/26/2017 06/24/2017, 04/29/2016 COVID-19 Vaccine ( season) 2023 12/18/2021, 07/12/2020, 06/14/2020 Dental Prophylaxis 08/23/2024 02/22/2024, 0 08/11/2017, 07/08/2016 Influenza Vaccine (#1) 2024 , 12/18/2021, 01/03/2021, Additional history exists Dental X-Ray: Bitewings 02/22/2025 02/22/20 24, 06/24/2017, 04/29/2016 Depression Monitoring 02/24/2025 08/24/2024, 025 Alcohol/Substance Use Screening 08/24/2025 08/24/2024 Disability Screening 08/24/2025 08/24/2024 SDOH Screening 08/24/2025 08/24/2024 Tobacco Screening 10/19/2025 10/19/2024 Dental X-Ray: Full Mouth 02/22/2027 024, 07/09/2017, 04/29/2016 Pap Smear 08/25/2027 08/24/2024, 08/19/2022 Lipid Panel 02/18/2028 02/17/2023 Cervical Cancer Screening 08/24/2029 HPV/Cotest 08/24/2029 08/24/2024, 07/25, 08/19/2022 DTaP/Tdap/Td Vaccines (9 - Td or Tdap) 06/06/2030 06/06/2020, 07/22/2014, 11/23/2008, Additional history exists Zoster Vaccines (1 of 2) 2043 RSV Patients and Patients Aged 60 years or older (1 - 1-dose 75+ series) 2068 HIB Vaccines Completed 09/23/1994, 02/1993, 1993, Additional history exists IPV Vaccines Completed 06/23/1997, 0 02/1993, 1993, Additional history exists HPV Vaccines [...] Procedure Name Priority Date/Time Associated Diagnosis Comments POCT INFLUENZA B (ID NOW RAPID MOLECULAR) Routine 10/19/2024 12:06 PM EDT Mild intermittent asthma with acute exacerbation POCT INFLUENZA A (ID NOW RAPID MOLECULAR) Routine 10/19/2024 12:06 PM EDT Mild intermittent asthma with acute exacerbation POCT RAPID COVID ANTIGEN Routine 10/19/2024 12:06 PM EDT Mild intermittent asthma with acute exacerbation XR CHEST 2 VIEWS Routine 10/19/2024 11:3 4 AM EDT Mild intermittent asthma with acute exacerbation PAP SMEAR Routine 08/24/2024 11:17 AM EDT HPV in female Encounter for cervical Pap smear with pelvic exam HPV DNA, LOW/HIGH RISK Routine 08/24/2024 11:17 AM EDT HPV in female Encounter for cervical Pap smear with pelvic exam CHLAMYDIA/N. GONORRHOEAE RNA, TMA, UROGENITAL Routine 08/24/2024 11:17 AM EDT HPV in female Encounter for cervical Pap smear with pelvic exam BACTERIAL VAGINOSIS PANEL Routine 08/24/2024 11:17 AM EDT HPV in female Encounter for cervical Pap smear with pelvic exam PROPHYLAXIS - ADULT Routine 02/22/2024 1 :00 [...] AM EST Encounter for preventive health examination PERIODIC ORAL EVALUATION - ESTABLISHED PATIENT Routine 06/24/2017 12:00 AM EDT from Last 3 Months or Most Recently Relevant to Health Maintenance Results * Influenza B (ID NOW Rapid Molecular) (10/19/2024 12:06 PM EDT) Pathologist [facility] Influenza B Negative Negative, Indeterminate [facility] Swab 10/19/2024 12:0 6 PM EDT us Yordy Pena MD POINT OF CARE TEST ENTER/EDIT OR DERABLES Final Result [facility] [address] [place] [phone] * Influenza A (ID NOW Rapid Molecular) (10/19/2024 12:06 PM EDT) Pathologist [facility] Influenza A Negative Negative, Indeterminate [facility] Swab 10/19/2024 12:0 6 PM EDT us Yordy Pena MD POINT OF CARE TEST ENTER/EDIT OR DERABLES Final Result Performing Organization Address City/[facility]/ZIP Co de Phone Number [facility] [address] [place] [phone] [phone] * POCT Rapid COVID Ag (10/19/2024 12:06 PM EDT) Rapid COVID Ag Negative [facility] Swab 10/19/2024 12:0 6 PM EDT Yordy Pena MD POINT OF CARE TEST ENTER/EDIT OR DERABLES Final Result Performing Organization Address [facility]UST Co de Phone Number [facility] [address] [place] [address] [phone] * XR Chest 2 Views (10/19/2024 11:34 AM EDT) Anatomical Region Laterality Modality Chest Radiographic Soo ging 10/19/2024 11:3 4 AM EDT Narrative 10/19/2024 12:28 PM EDT [facility] [address] [place] [address] XRay Report Signed Patient: Eleonora Tellez MR#: [id number] 2 : 1995 Acct:[id number] Age/Sex: 29 / F ADM Date: 10/19/24 Loc: HO.HHCX Attending Dr: Yordy Pena MD Ordering Physician: YORDY PENA MD Date of Service: 10/19/24 Procedure(s): XR chest 2V Accession Number(s): [id number] cc: YORDY PENA MD EXAMINATION: XR CHEST CLINICAL INFORMATION: productive cough, fever COMPARISON: 06/08/2021. TECHNIQUE: 2 views of the chest were obtained. FINDINGS: The cardiac, hilar, and mediastinal contours are normal. The lungs are clear bilaterally. There is no pneumothorax or pleural effusion. There is no focal osseous or soft tissue abnormality. XR/XR chest 2V IMPRESSION: Normal chest. Electronically signed by: Nathan Patricio MD 10/19/2024 12:25 PM EDT Dictated By: Nathan Patricio MD Signed By: <Electronically signed by Nathan Patricio MD in OV> 10/19/24 1225 DD/ 1134 TD/TT: 10/19/24 1222 Vice President Industrial Relations: Procedure Note Donotsiobhaninterpreter, Image - 10/19/[address] [address] XRay Report Signed Patient: Eleonora TellezMR#: [id number] 2 : 1995Acct:[id number] Age/Sex: 29 / FADM Date: 10/19/24 Loc: HOHHCX Attending Dr: Yordy Pena MD Ordering Physician: YORDY PENA MD Date of Service: 10/19/24 Procedure(s): XR chest 2V Accession Number(s): [id number] cc: YORDY PENA MD EXAMINATION: XR CHEST CLINICAL INFORMATION: productive cough, fever COMPARISON: 06/08/2021. TECHNIQUE: 2 views of the chest were obtained. FINDINGS: The cardiac, hilar, and mediastinal contours are normal. The lungs are clear bilaterally. There is no pneumothorax or pleural effusion. There is no focal osseous or soft tissue abnormality. XR/XR chest 2V IMPRESSION: Normal chest. Electronically signed by: Nathan Patricio MD 10/19/2024 12:25 PM EDT RP Dictated By: Nathan Patricio MD Signed By: <Electronically signed by Nathan Patricio MD in OV> 10/19/24 1225 DD/ 1134 TD/TT: 10/19/24 1222 Vice President Industrial Relations: Yordy Pena MD IMG XR PROCEDURES Final Result * Bacterial Vaginosis (08/24/2024 11:17 AM EDT) TRICHOMONAS VAGINALIS DETECTION BY PCR NOT DETECTED Not Detect [facility] BACTERIAL VAGINOSIS DETECTION BY PCR NEGATIVE Negative [facility] Comment:The BV organism targ ets of the Xpert Xpress MVP test can becommensal in women; Xpert Xpress MVP positive results forbacterial vaginosis should be considered in conjunction withother clinical and patient information to determine thedisease status. Organisms that are not detected by the XpertXpress MVP test have also been reported to be associatedwith BV and aerobic vaginitis.The Xpert Xpress MVP test performance has not been evaluatedin patients under the age of 14. KRYSTYNA GROUP DETECTION BY PCR NOT DETECTED Not Detect [facility] Krystyna glab krusei PCR NOT DETECTED Not Detect [facility] Swab Vaginal structure / Unknown 08/24/2024 11:17 AM EDT 08/24/2024 4:01 PM EDT us Zunilda Ignacio MD LAB MICROBIOLOGY - GENER AL ORDERABLES Final Result [facility] [address] [place] [phone] * HPV High Risk with Reflex to Subtypes (08/24/2024 11:17 AM EDT) HPV High Risk Negative Negative [facility] HPV Genotype 16 Negative Negative [facility] HPV Genotype 18 Negative Negative [facility] Comment:HPV testing performe d at [facility] (CLIA#[id number]), [address] [place] [address].Testing for HPV was performed using the Zina MENDEZ 6800system. The presence of HPV in the female genital tract isassociated with a number of diseases, including cervicalcarcinoma. The HPV DNA high risk pool tests for HPV 31, 33,35, 39, 45, 51, 52, 56, 58, 59, 66 and 68. The testing forHPV 16 and 18 genotypes has also been performed. A positiveresult indicates detection of nucleic acid sequences fromone or more subtypes, whereas a negative result indicatessuch sequences were not detected. Pap Vial 08/24/2024 11:1 7 AM EDT 08/25/2024 8:00 AM EDT us Zunilda Ignacio MD LAB BLOOD ORDERABLES Fin al Result [facility] [address] [place] [phone] [phone] * Chlamydia/N. Gonorrhoeae RNA, TMA, Urogenitial (08/24/2024 11:17 AM EDT) CT PCR NOT DETECTED Not Detect. [facility] Comment:A not detected test result does not exclude the possibilityof infection because test results can be affected byimproper specimen collection, concurrent antibiotic therapy,or the number of organisms in the specimen which may bebelow the sensitivity of the test. As with many diagnostictests, results from the Xpert CT/NG assay should beinterpreted in conjunction with other laboratory andclinical data available to the clinician.Xpert CT/NG performance has not been evaluated in patientsless than 14 years of age. The assay should not be used forthe evaluationof suspected sexual abuse or for other medico-legalindications. Additional testing is recommended in anycircumstance when false positive or false negative resultscould lead to adverse medical, social or psychologicalconsequences. NG PCR NOT DETECTED Not Detect. [facility] Comment:A not detected test result does not exclude the possibilityof infection because test results can be affected byimproper specimen collection, concurrent antibiotic therapy,or the number of organisms in the specimen which may bebelow the sensitivity of the test. As with many diagnostictests, results from the Xpert CT/NG assay should beinterpreted in conjunction with other laboratory andclinical data available to the clinician.Xpert CT/NG performance has not been evaluated in patientsless than 14 years of age. The assay should not be used forthe evaluationof suspected sexual abuse or for other medico-legalindications. Additional testing is recommended in anycircumstance when false positive or false negative resultscould lead to adverse medical, social or psychologicalconsequences. Swab Vaginal structure / Unknown 08/24/2024 11:17 AM EDT 08/24/2024 4:01 PM EDT Zunilda Ignacio MD LAB MICROBIOLOGY - GENER AL ORDERABLES Final Result [facility] [address] [place] [phone] * Pap Smear (08/24/2024 11:17 AM EDT) Swab Cervical swab / Unknown 08/24/2024 11:17 AM EDT 08/25/2024 8:00 AM EDT Narrative [facility] - 08/29/2024 3:03 PM EDT ----- ------- Name: GeoffEleonora Age/Sex: 29/F : 1995 Unit#: [id number] Attend Dr: Zunilda Ignacio MD Re08/24/24 Status: [facility] Location: [facility] Disch: ----- ------- SPEC : [id number] RECD: 08/25/24 STATUS: ANGEL SIEGEL NUM: [id number] MARIZA: 08/24/24-[address] [facility] [address]: Zunilda Ignacio MD ENTERED: 08/25/24 SP TYPE: Pap Smr OT DR: ORDERED: Pap Smear Interpretation Satisfactory for evaluation. Negative for intraepithelial lesion or malignancy. HPV High Risk: Negative HPV Genotyping 16: Negative HPV Genotyping 18: Negative Clinical Information LMP: Unknown date Previous PAP test: 2022, NIL/Positive HPV Other history: HPV in female, encounter for cervical Pap smear with pelvic exam Material Received ThinPrep-Cervical PAP Disclaimer As of December 16, 2023, the technical services to include automated prescreening performed by the ThinPrep Imaging System, PAP screening and HPV testing will be performed at [facility] (CLIA #[id number]), [address] [place] [address]. Testing for HPV was performed using the [employer] MENDEZ [employer] system. The presence of HPV in the female genital tract is associated with a number of diseases, including cervical carcinoma. The HPV DNA high risk pool tests for HPV 31, 33, 35, 39, 45, 51, 52, 56, 58, 59, 66 and 68. The testing for HPV 16 and 18 genotypes has also been performed. A positive result indicates detection of nucleic acid sequences from one or more subtypes, whereas a negative result indicates such sequences were not detected. All professional services are performed by [facility] ([address] [place], [place] [id number]; ; CLIA #[id number]). The PAP Test is a screening procedure with the inherent possibility of both false negative and false positive results. Results should be interpreted in the context of historic and current clinical findings. Reliability of the PAP Test is enhanced by performing the test on a regular repetitive basis. ----- ------- Signed (signature on file) MAX Jules ([facility]) 08/29/24 1503 ----- ------- END OF REPORT Zunilda Ignacio MD LAB CYTOLOGY ORDERABLES Final Result Performing Organization Address City/[facility]/ZIP Co de Phone Number [facility] [address] [place] [phone] [phone] * Lipid Panel with Reflex to Direct LDL (02/17/2023 11:33 AM EST) Triglycerides 50 <150 mg/dL [facility] Comment:Desirable Triglyceri de: less than 150 mg/dLBorderline High Triglyceride 150-199 mg/dLHigh Triglyceride: 200-499 mg/dLVery High Triglyceride: greater than or equal to 5OO mg/dL Cholesterol 136 <200 mg/dL [facility] Comment:Desirable Cholestero l: less than 200 mg/dLBorderline High Cholesterol: 200-239 mg/dLHigh Cholesterol: greater than 239 mg/dL LDL Cholesterol Calculated 69 <100 mg/dL [facility] Comment:Desirable LDL: less than 100 mg/dLNear Optimal/Above Optimal LDL: 110- 129 mg/dLBorderline High LDL: 130-159 mg/dLHigh LDL: 160-189 mg/dLVery High LDL: greater than or equal to 190 mg/dL HDL Cholesterol 57 >40 mg/dL [facility] Comment:Desirable HDL: great er than 40 mg/dL Note: This HDL assay may give artificially low results in patients with liver disease. Blood 02/17/2023 11:3 3 AM EST 02/17/2023 1:09 PM EST Zunilda Ignacio MD LAB BLOOD ORDERABLES Fin al Result Performing Organization Address [facility]/ZIP Co de Phone Number [facility] [address] [place] [phone] [phone] * Hepatitis Panel, General (02/17/2023 11:33 AM EST) Hepatitis A IgM Nonreactive Nonreactive [facility] Comment:IgM antibodies to ONEILL V not detected; does not exclude earlyacute or recovered HAV infection. ~Hepatitis B Surface Antibody REACTIVE Nonreactive [facility] Comment:REACTIVE: > 11.99 mI U/mL Hepatitis B Core Antibody Nonreactive Nonreactive [facility] Hepatitis C Antibody Nonreactive Nonreactive [facility] Comment:Antibodies to HCV no t detected; does not exclude early acuteHCV infection. Hepatitis B Surface Ag Negative Negative [facility] Blood 02/17/2023 11:3 3 AM EST 02/17/2023 1:09 PM EST Zunilda Ignacio MD LAB BLOOD ORDERABLES Fin al Result Performing Organization Address [facility] Co de Phone Number [facility] [address] [place] [phone] * HIV-1/2 Antigen and Antibodies, Fourth Generation, with Reflexes (02/17/2023 11:33 AM EST) HIV AB/AG Nonreactive Nonreactive [facility] Comment:HIV-1 p24 Ag and/or HIV-1/HIV-2 Ab not detected.A test result that is nonreactive does not exclude thepossibility of exposure to or infection with HIV-1 and/orHIV-2. Nonreactive results in this assay for individualswith prior exposure to HIV-1 and/or HIV-2 may be due toantigen and antibody levels that are below the limit ofdetection of this assay.The FRAMED HIV Ag/Ab Combo assay result andsupplemental assay results should be interpreted inconjunction with the patient's clinical presentation,history and other laboratory results. If the results areinconsistent with clinical evidence, additional testing issuggested to confirm the result. 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
--- OUTSIDE RECORDS SUMMARY | 2024-10-19 15:00 | XMS_ITS | Encounter Summary ---
Author Organization [employer] Address [facility] [address] [place] [address] Care Team Providers Care Human Capital Manager Name Role Phone Zunilda Ignacio MD Primary Care Provider + Benson Waters Unavailable Unavailable Encounter Details Date Type Department Care Team ([facility] st Contact Info) Description 10/19/2024 3:00 PM EDT Office Visit [facility] [address] [place] [address] Mild intermittent asthma with acute exacerbation (Primary Dx); Viral URI with cough Social History Tobacco Use Types Packs/Day Years [...] AM EDT documented as of this encounter Last Filed Vital Signs Vital Sign Reading Time Taken Comments Blood Pressure 128/95 10/19/2024 11:39 AM EDT Pulse 115 10/19/2024 11:39 AM EDT Temperature 37.3 C (99.2 F) 10/19/2024 11:39 AM EDT Respiratory Rate 21 10/19/2024 11:39 AM EDT Oxygen Saturation 97% 10/19/2024 11:39 AM EDT Inhaled Oxygen Concentration - - Weight - - Height - - Body Mass Index - - documented in this encounter Plan of Treatment Upcoming Encounters Date Type Department Care Team (Late st Contact Info) Description 11/14/2024 11:[address] [facility] [address] [place] [address] [place] [address] 11/21/2024 3:00 PM EDT Office Visit [facility] [address] [place] [address] Debbie Moran 02/10/2025 1:00 PM EST Office Visit [facility] [address] [place] [address] Lesley Jama, OD [address] [place] [address] documented as of this encounter Procedures Procedure [...] EDT Mild intermittent asthma with acute exacerbation documented in this encounter Results * Influenza B (ID NOW Rapid Molecular) (10/19/2024 12:06 PM EDT) Influenza B Negative Negative, Indeterminate [facility] Swab 10/19/2024 12:0 6 PM EDT us Yordy Pena MD POINT OF CARE TEST ENTER/EDIT OR DERABLES Final Result Performing Organization Address City/[facility]/ZIP Co de Phone Number [facility] [address] [place] [phone] * Influenza A (ID NOW Rapid Molecular) (10/19/2024 12:06 PM EDT) Influenza A Negative Negative, Indeterminate [facility] Swab 10/19/2024 12:0 6 PM EDT us Yordy Pena MD POINT OF CARE TEST ENTER/EDIT OR DERABLES Final Result Performing Organization Address [facility]/ZIP Co de Phone Number [facility] [address] [place] [address] [phone] * POCT Rapid COVID Ag (10/19/2024 12:06 PM EDT) Rapid COVID Ag Negative [facility] Swab 10/19/2024 12:0 6 PM EDT Yordy Pena MD POINT OF CARE TEST ENTER/EDIT OR DERABLES Final Result [facility] [address] [place] [address] [phone] * XR Chest 2 Views (10/19/2024 11:34 AM EDT) Anatomical Region Laterality Modality Chest Radiographic Soo ging 10/19/2024 11:3 4 AM EDT Narrative 10/19/2024 12:28 PM EDT [facility] [address] [place] [address] XRay Report Signed Patient: Eleonora Tellez MR#: [id number] 2 : 1995 Acct:[id number] Age/Sex: 29 / F ADM Date: 10/19/24 Loc: .HHCX Attending Dr: Yordy Pena MD Ordering Physician: YORDY PENA MD Date of Service: 10/19/24 Procedure(s): XR chest 2V Accession Number(s): [id number] cc: YORDY PENA MD EXAMINATION: XR CHEST [...] 10/19/24 1225 DD/ 1134 TD/TT: 10/19/24 1222 Shop Welder: Procedure Note Donotuseinterpreter, Image - 10/19/2024 [facility] [address] [place] [address] XRay Report Signed Patient: Eleonora TellezMR#: [id number] 2 : 1995Acct:[id number] Age/Sex: 29 / FADM Date: 10/19/24 [facility]: Yordy Pena MD Ordering Physician: YORDY PENA MD Date of Service: 10/19/24 Procedure(s): XR chest 2V Accession Number(s): [id number] cc: YORDY PENA MD EXAMINATION: XR CHEST [...] 10/19/24 1225 DD/ 1134 TD/TT: 10/19/24 1222 Shop Welder: Yordy Pena MD IMG XR PROCEDURES Final Result documented in this encounter Visit Diagnoses Diagnosis Mild intermittent asthma with acute exacerbation- Primary Viral URI with cough documented in this encounter Administered Medications Inactive Administered Medications - up to 3 most recent administrations Medication Order MAR Action Action Date Dose Rate Site acetaminophen (Tylenol) tablet 975 mg 975 mg, Oral, Once, On Thu10/19/24 at 1200, For 1 doseIndications:Mild intermittent asthma with acute exacerbation Given 10/19/2024 12:00 PM EDT 975 mg ipratropium-albuterol (Duo-Neb) 0.5-2.5 mg/3 mL nebulizer solution 3 mg 3 mg, Nebulization, Once, On Thu10/19/24 at 1145, For 1 doseIndications:Mild intermittent asthma with acute exacerbation Given 10/19/2024 11:45 AM EDT 3 mg predniSONE (Deltasone) tablet 40 mg 40 mg, Oral, Once, On Thu10/19/24 at 1200, For 1 doseIndications:Mild intermittent asthma with acute exacerbation Given 10/19/2024 12:00 PM EDT 40 mg documented in this encounter Additional Health Concerns Assessment Noted Time PHQ-9 Depression Total Score: 9 08/25/19 25 11:54 AM EDT documented as of this encounter Care Teams Human Capital Manager Relationship Specialty Start Date End Date Zunilda Ignacio MD [address] [place] [address] PCP - General Family Medicine 02/29/16 Benson Waters FNP [address] [place] [address] Nurse Practitioner Family Medicine 01/23/23 documented as of this encounter
== END 2024-10-19 12:13 | disposition home or self-care (01) ==
LOC: HO.HHCX 12:12
PROVIDERS: Visit Provider Emergency Medicine
DX: J45.21 Mild intermittent asthma with (acute) exacerbation (principal)
CPT/HCPCS: 71046

== ENCOUNTER → 2024-10-19 12:14 | Outpatient (BNV) | payer OTHER, SELFPAY | PROVIDERS: Visit Provider Radiology Diagnostic Radiology | DX: R05.3 Chronic cough (principal) | CPT/HCPCS: 71046 ==

== ENCOUNTER 2024-10-27 10:34 | Outpatient (REF) | payer MEDICAID, SELFPAY ==
--- OUTSIDE RECORDS SUMMARY | 2024-10-27 11:59 | XMS_ITS | Clinical Summary ---
Author Organization [employer] Address [facility] [address] [place] [address] Care Team Providers Care News Assistant Name Role Phone Zunilda Ignacio MD Primary [...] needed (asthma). 1 each 10/20/19 25 Active Misc. Devices (Pulse Oximeter For Finger) [...] (Atarax) when taking Zithromax. 6 tablet 10/20/19 Active albuterol 108 (90 Base) MCG/ACT inhalerIndica tions:Viral URI with cough Inhale 2 puffs every 6 (six) hours if needed for wheezing. 18 g 3 12/01/19 24 025 Discontinued(R eorder (will not trigger notification to Pharmacy)) predniSONE (Deltasone) 20 MG tablet Take 2 tablets (40 mg) by mouth Once per day for 5 days. 10 tablet 10/20/19 025 Hospital, Clinic, or Other Facility Administered Medication [...] develops hives or swelling again. Refer to fleet dispatch manager. Avoid contact with cats, consider moving to a building where animals are not allowed. Skin tag of female perineum 02/06/2023 Assessment & Plan (02/06/2023 10:35 AM EST): On perineum area, she will f/u with me in 4 weeks for skin tag removal HPV in female 02/06/2023 Assessment & Plan (08/24/2024 1:26 PM EDT): PAP smear done today, will fu results. We discussed re B2B OUTSIDE SALES REPRESENTATIVE referral if test is POS, she agreed [...] get written evidence of Influenza in [facility]. Floor Technician about COVID vaccine booster at earliest convenience. [...] medication management. Any issues or concerns contact [facility]. All her questions were answered and I [...] that provider would be retiring in approx /2, but we would make every effort to [...] me in 6 weeks. She agrees with [facility] Assessment & Plan (04/28/2022 12:59 PM EST): [...] me in 3 weeks. She agrees with [facility] Assessment & Plan (04/07/2022 4:10 PM EST): [...] me in 1 month. 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); Left ovarian cyst; Encounter for cervical Pap smear with pelvic exam; Recurrent major depressive episodes, moderate (CMS/HCC); Class 2 obesity due to excess calories without serious comorbidity with body mass index (BMI) of 37.0 to 37.9 in adult; Dyspareunia, female; Dietary counseling; Exercise counseling 08/24/2024 Travel 08/23/[address] [address] Zunilda Ignacio MD chart prep 08/09/[address] [address] Zunilda Ignacio MD from Last 3 Months [...] Info) Description 11/14/2024 11:00 AM EDT Nutrition [facility] [address] [place] [address] Misty Mata, GLADIS [address] [place] [address] 11/21/2024 3:00 PM EDT Office Visit [facility] [address] [place] [address] Debbie Moran 02/10/2025 1:00 PM EST Office Visit [facility] [address] [place] [address] Lesley Jama, OD [address] [place] [address] Health Maintenance Due Date Last Done Comments Family Planning (PISQ) 2008 Dental Oral Exam 12/26/2017 06/24/2017, 04/29/2016 Dental Prophylaxis 08/23/2024 02/22/2024, 0 08/11/2017, 07/08/2016 COVID-19 Vaccine ( season) 2024 12/18/2021, 07/12/2020, 06/14/2020 Influenza Vaccine (#1) 2024 , 12/18/2021, 01/03/2021, [...] 75+ series) 2068 HIB Vaccines Completed 09/23/1994, 0 02/1993, 1993, Additional history exists IPV Vaccines [...] PM EDT) Influenza B Negative Negative, Indeterminate [facility] Swab 10/19/2024 12:0 6 PM EDT us Yordy Khanna MD POINT OF CARE TEST ENTER/EDIT OR DERABLES Final Result Performing Organization Address [facility] Co de Phone Number [facility] [address] [place] [phone] * Influenza A (ID NOW Rapid Molecular) (10/19/2024 12:06 PM EDT) Influenza A Negative Negative, Indeterminate [facility] Swab 10/19/2024 12:0 6 PM EDT us Yordy Khanna MD POINT OF CARE TEST ENTER/EDIT OR DERABLES Final Result Performing Organization Address [facility] Co de Phone Number [facility] [address] [place] [phone] * POCT Rapid COVID Ag (10/19/2024 12:06 PM EDT) Rapid COVID Ag Negative [facility] Swab 10/19/2024 12:0 6 PM EDT Yordy Khanna MD POINT OF CARE TEST ENTER/EDIT OR DERABLES Final Result Performing Organization Address City/State/[facility] Co de Phone Number [facility] [address] [place] [phone] * XR Chest 2 Views (10/19/2024 11:34 AM EDT) Anatomical Region Laterality Modality Chest Radiographic Soo ging 10/19/2024 11:3 4 AM EDT Narrative 10/19/2024 12:28 PM EDT [address] [address] XRay Report Signed Patient: Eleonora Tellez MR#: [id number] 2 : 1995 Acct:[id number] Age/Sex: 29 / F ADM Date: 10/19/24 Loc: HO.HHCX Attending Dr: Yordy Khanna MD Ordering Physician: YORDY KHANNA MD Date of Service: 10/19/24 Procedure(s): XR chest 2V Accession Number(s): [id number] cc: YORDY KHANNA MD EXAMINATION: XR CHEST CLINICAL INFORMATION: productive [...] 10/19/24 1225 DD/ 1134 TD/TT: 10/19/24 1222 Hub Inventory Specialist: Procedure Note Donotuseinterpreter, Image - 10/19/2024 [facility] [address] [place] [address] XRay Report Signed Patient: Eleonora TellezMR#: [id number] 2 : 1995Acct:[id number] Age/Sex: 29 / FADM Date: 10/19/24 [facility]: Yordy Khanna MD Ordering Physician: YORDY KHANNA MD Date of Service: 10/19/24 Procedure(s): XR chest 2V Accession Number(s): [id number] cc: YORDY KHANNA MD EXAMINATION: XR CHEST CLINICAL INFORMATION: productive [...] 10/19/24 1225 DD/ 1134 TD/TT: 10/19/24 1222 Hub Inventory Specialist: Yordy Khanna MD IMG XR PROCEDURES Final Result * Bacterial Vaginosis (08/24/2024 11:17 AM EDT) TRICHOMONAS VAGINALIS DETECTION BY PCR NOT DETECTED Not Detect [facility] BACTERIAL VAGINOSIS DETECTION BY PCR NEGATIVE Negative [facility] Comment:The BV organism targ ets of [...] DETECTION BY PCR NOT DETECTED Not Detect [facility] Krystyan glab krusei PCR NOT DETECTED Not Detect [facility] Swab Vaginal structure / Unknown 08/24/2024 11:17 AM EDT 08/24/2024 4:01 PM EDT us Zunilda Ignacio MD LAB MICROBIOLOGY - GENER AL ORDERABLES Final Result Performing Organization Address [facility] Co de Phone Number [facility] [address] [place] [phone] * HPV High Risk with Reflex to Subtypes (08/24/2024 11:17 AM EDT) HPV High Risk Negative Negative [facility] HPV Genotype 16 Negative Negative [facility] HPV Genotype 18 Negative Negative [facility] Comment:HPV testing performe d at [facility] (CLIA#[id number]), [address] [place] [address].Testing for HPV was performed using the Zina [...] ORDERABLES Fin al Result Performing Organization Address [facility]/ZIP Co de Phone Number [facility] [address] [place] [phone] * Chlamydia/N. Gonorrhoeae RNA, TMA, Urogenitial (08/24/2024 11:17 AM EDT) CT PCR NOT DETECTED Not Detect. [facility] Comment:A not detected test result does [...] psychologicalconsequences. NG PCR NOT DETECTED Not Detect. [facility] Comment:A not detected test result does [...] MICROBIOLOGY - GENER AL ORDERABLES Final Result [facility] [address] [place] [phone] * Pap Smear (08/24/2024 11:17 AM EDT) Swab Cervical swab / Unknown 08/24/2024 11:17 AM EDT 08/25/2024 8:00 AM EDT [facility] - 08/29/2024 3:03 PM EDT ----- ------- Name: Eleonora Tellez Age/Sex: 29/F : 1995 Unit#: [id number] Attend Dr: Zunilda Ignacio MD Re08/24/24 Status: DEP REF Location: HO.HHCLNP Disch: ----- ------- SPEC : [id number] RECD: 08/25/24 STATUS: ANGEL SIEGEL NUM: [id number] MARIZA: 08/24/24-[address] [facility] [address]: Zunilda Ignacio MD ENTERED: 08/25/24 SP TYPE: Pap [facility] OT : ORDERED: Pap Smear Interpretation Satisfactory for evaluation. [...] and HPV testing will be performed at [facility] (CLIA #[id number]), [address] [place] [address]. Testing for HPV was performed using the [employer]pi[employer] MENDEZ 6800 system. The presence of HPV in the [...] detected. All professional services are performed by [employer] ([address] [place], [place] [id number]; ; CLIA #[id number]). The PAP Test is a screening procedure with the inherent possibility of both false negative and false positive results. Results should be interpreted in the context of historic and current clinical findings. Reliability of the PAP Test is enhanced by performing the test on a regular repetitive basis. ----- ------- Signed (signature on file) MAX Jules (ASC) 08/29/24 1503 ----- ------- END OF REPORT us Zunilda Ignacio MD LAB CYTOLOGY ORDERABLES Final Result Performing Organization Address [facility] Co de Phone Number [facility] [address] [place] [address] [phone] * Lipid Panel with Reflex to Direct LDL (02/17/2023 11:33 AM EST) Triglycerides 50 <150 mg/dL [facility] Comment:Desirable Triglyceri de: less than 150 mg/dLBorderline High Triglyceride 150-199 mg/dLHigh Triglyceride: 200-499 mg/dLVery High Triglyceride: greater than or equal to 5OO mg/dL Cholesterol 136 <200 mg/dL [facility] Comment:Desirable Cholestero l: less than 200 mg/dLBorderline High Cholesterol: 200-239 mg/dLHigh Cholesterol: greater than 239 mg/dL LDL Cholesterol Calculated 69 <100 mg/dL [facility] Comment:Desirable LDL: less than 100 mg/dLNear Optimal/Above Optimal LDL: 110- 129 mg/dLBorderline High LDL: 130-159 mg/dLHigh LDL: 160-189 mg/dLVery High LDL: greater than or equal to 190 mg/dL HDL Cholesterol 57 >40 mg/dL [facility] Comment:Desirable HDL: great er than 40 mg/dL Note: This HDL assay may give artificially low results in patients with liver disease. Blood 02/17/2023 11:3 3 AM EST 02/17/2023 1:09 PM EST Zunilda Ignacio MD LAB BLOOD ORDERABLES Fin al Result Performing Organization Address [facility]/ZIP Co de Phone Number [facility] [address] [place] [phone] [phone] * Hepatitis Panel, General (02/17/2023 11:33 AM EST) Hepatitis A IgM Nonreactive Nonreactive [facility] Comment:IgM antibodies to ONEILL V not detected; does not exclude earlyacute or recovered HAV infection. ~Hepatitis B Surface Antibody REACTIVE Nonreactive [facility] Comment:REACTIVE: > 11.99 mI U/mL Hepatitis B Core Antibody Nonreactive Nonreactive [facility] Hepatitis C Antibody Nonreactive Nonreactive [facility] Comment:Antibodies to HCV no t detected; does not exclude early acuteHCV infection. Hepatitis B Surface Ag Negative Negative [facility] Blood 02/17/2023 11:3 3 AM EST 02/17/2023 1:09 PM EST Zunilda Ignacio MD LAB BLOOD ORDERABLES Fin al Result Performing Organization Address City/[facility]/ZIP Co de Phone Number [facility] [address] [place] [phone] [phone] * HIV-1/2 Antigen and Antibodies, Fourth Generation, with Reflexes (02/17/2023 11:33 AM EST) [facility] HIV AB/AG Nonreactive Nonreactive [facility] Comment:HIV-1 p24 Ag and/or HIV-1/HIV-2 Ab not detected.A test result that is nonreactive does not exclude thepossibility of exposure to or infection with HIV-1 and/orHIV-2. Nonreactive results in this assay for individualswith prior exposure to HIV-1 and/or HIV-2 may be due toantigen and antibody levels that are below the limit ofdetection of this assay.The [employer] HIV Ag/Ab Combo assay result andsupplemental assay results should be interpreted inconjunction with the patient's clinical presentation,history and other laboratory results. If the results areinconsistent with clinical evidence, additional testing issuggested to confirm the result. Blood Venous blood specimen / Unknown 02/17/2023 11:33 AM EST 02/17/2023 1:09 PM EST Zunilda Ignacio MD LAB BLOOD ORDERABLES Fin al Result Performing Organization Address [facility]/ZIP Co de Phone Number [facility] [address] [place] [address] [phone] from Last 3 Months or Most Recently Relevant to Health Maintenance Insurance [place] [id number] [place] [address] [facility] Care Teams News Assistant Relationship Specialty Start Date End Date Zunilda Ignacio MD [address] [place] [phone] PCP - General Family Medicine 02/29/16 Benson Waters FNP [address] [place] [phone] Nurse Practitioner Family Medicine 01/23/23
--- OUTSIDE RECORDS SUMMARY | 2024-10-27 11:59 | XMS_ITS | Encounter Summary ---
Author Organization [employer] Address [address] [place] [address] Care Team Providers Care Lang Interpreter Name Role Phone Zunilda Ignacio MD Primary Care Provider + Benson Waters Unavailable Unavailable Encounter Details Date Type Department Care Team ([facility] st Contact Info) Description 08/21/2022 Orders Only [facility] MED[facility] [address] [place] [address] Zunilda Ignacio MD [address] [place] [address] Bacterial vaginitis (Primary Dx) Social History Tobacco [...] Info) Description 11/14/2024 11:00 AM EDT Nutrition [facility] DIABETES/NUTRITION [address] [place] [address] Misty Mata, RD [address] [place] [address] 11/21/2024 3:00 PM EDT Office Visit [facility] ADULT DENTAL [address] [place] [address] Debbie Moran 02/10/2025 1:00 PM EST Office Visit [facility] OPT[facility]ET[facility] [address] [place] [address] Lisandro Jaman, OD [address] [place] [address] documented as of this encounter Procedures Procedure Name Priority Date/Time Associated Diagnosis Comments HEPATIC FUNCTION PANEL Routine 02/17/2023 11:33 AM EST Bacterial vaginitis documented in this encounter Results * Hepatic Function Panel (02/17/2023 11:33 AM EST) Bilirubin, Total 0.3 0.0 - 1.0 mg/dL [facility] Bilirubin, Direct 0.1 0.0 - 0.5 mg/dL [facility] Aspartate Amino Transferase 18 5 - 31 U/L [facility] Alanine Aminotransferase 15 0 - 31 U/L [facility] Total Protein 6.8 6.5 - 8.0 g/dL [facility] Albumin Level 4.2 3.5 - 5.0 g/dL [facility] Alkaline Phosphatase 67 39 - 117 U/L [facility] 02/17/2023 11:3 3 AM EST 02/17/2023 1:09 PM EST us Zunilda Ignacio MD LAB BLOOD ORDERABLES Fin al Result [facility] [address] [place] [phone] [phone] documented in this encounter Visit Diagnoses Diagnosis Bacterial vaginitis- Primary Unspecified vaginitis and vulvovaginitis documented in this encounter Additional Health Concerns Assessment Noted Time PHQ-9 Depression Total Score: 3 04/29/19 23 11:36 AM EST documented as of this encounter Care Teams Lang Interpreter Relationship Specialty Start Date End Date Zunilda Ignacio MD [address] [place] [address] PCP - General Family Medicine 02/29/16 Benson Waters FNP [address] [place] [phone] Nurse Practitioner Family Medicine 01/23/23 documented as of this encounter
--- OUTSIDE RECORDS SUMMARY | 2024-10-27 11:59 | XMS_ITS | Encounter Summary ---
Author Organization [employer] Address [address] [place] [address] Care Team Providers Care Railcar Switchman Name Role Phone Zunilda Ignacio MD Primary Care Provider + Benson Waters Unavailable Unavailable Reason for Visit * Reason Onset Date Comments Nurse Triage 06/20/2024 Encounter Details Date Type Department Care Team ([facility] Contact Info) Description 06/20/2024 Telephone [facility] MEDICINE [address] [place] [address] Zunilda Ignacio MD [address] [place] [address] Nurse Triage Social History Tobacco Use Types [...] the past 12 months, has t he [employer], gas, oil or water [employer] threatened to shut off services in your [...] Info) Description 11/14/2024 11:00 AM EDT Nutrition [facility] DIABETES/NUTRITION [address] [place] [address] [place] [address] 11/21/2024 3:00 PM EDT Office Visit [facility] ADULT DENTAL [address] [place] [address] Debbie Moran 02/10/2025 1:00 PM EST Office Visit [facility] OPTOMETRY [address] [place] [address] Wiley, Lesley, OD [address] [place] [address] documented as of this encounter Visit Diagnoses Not on filedocumented in this encounter Additional Health Concerns Assessment Noted Time PHQ-9 Depression Total Score: 11 0716/2 024 10:25 AM EDT documented as of this encounter Care Teams Railcar Switchman Relationship Specialty Start Date End Date Zunilda Ignacio MD [address] [place] [address] PCP - General Family Medicine 02/29/16 Benson Waters FNP [address] [place] [phone] Nurse Practitioner Family Medicine 01/23/23 documented as of this encounter
[2024-10-27 13:58] LABS: Alanine Aminotransferase 42 U/L (0-31); Albumin Level 4.7 g/dL (3.5-5.0); Alkaline Phosphatase 70 U/L (39-117); Anion Gap 14 (12-20); Aspartate Amino Transferase 36 U/L (5-31); Blood Urea Nitrogen 13 mg/dL (9-16); Calcium 9.2 mg/dL (8.4-10.2); Carbon Dioxide 21 mmol/L (22-29); Chloride 109 mmol/L (96-108); Estimated Glomerular Filt Rate > 60; Potassium 3.7 mmol/L (3.3-5.1); Sodium 140 mmol/L (135-145); Total Protein 7.3 g/dL (6.5-8.0)
== END 2024-10-27 10:35 | disposition home or self-care (01) ==
LOC: HO.HHCL 10:34
PROVIDERS: PCP Internal Medicine; Visit Provider Internal Medicine
DX: E66.812 Obesity, class 2 (principal); E66.09 Other obesity due to excess calories; Z68.37 Body mass index [BMI] 37.0-37.9, adult
CPT/HCPCS: 36415; 80053; 84443

== ENCOUNTER 2024-11-02 10:01 | Outpatient (REF) | payer MEDICAID, SELFPAY ==
--- OUTSIDE RECORDS SUMMARY | 2024-11-02 12:07 | XMS_ITS | Encounter Summary ---
Author Organization [employer] Address [address] [place] [address] Care Team Providers Care Dry Can Tender Name Role Phone Zunilda Ignacio MD Primary Care Provider + Benson Waters Unavailable Unavailable Encounter Details Date Type Department Care Team ([facility] st Contact Info) Description 08/21/2022 Orders Only [facility] MEDICINE [address] [place] [address] Zunilda Ignacio MD [address] [place] [address] Bacterial vaginitis (Primary Dx) Social History Tobacco [...] Info) Description 11/14/2024 11:00 AM EDT Nutrition [facility] DIABETES/NUTRITION [address] [place] [address] Misty Mata, RD [address] [place] [address] 11/21/2024 3:00 PM EDT Office Visit [facility] ADULT DENTAL [address] [place] [address] Debbie Moran 02/10/2025 1:00 PM EST Office Visit [facility] OPTOMETRY [address] [place] [address] Lisandro Jaman, OD [address] [place] [address] documented as of this encounter Procedures Procedure Name Priority Date/Time Associated Diagnosis Comments HEPATIC FUNCTION PANEL Routine 02/17/2023 11:33 AM EST Bacterial vaginitis documented in this encounter Results * Hepatic Function Panel (02/17/2023 11:33 AM EST) Bilirubin, Total 0.3 0.0 - 1.0 mg/dL [facility] Bilirubin, Direct 0.1 0.0 - 0.5 mg/dL [facility] Aspartate Amino Transferase 18 5 - 31 U/L [facility] Alanine Aminotransferase 15 0 - 31 U/L [facility] Total Protein 6.8 6.5 - 8.0 g/dL [facility] Albumin Level 4.2 3.5 - 5.0 g/dL [facility] Alkaline Phosphatase 67 39 - 117 U/L [facility] 02/17/2023 11:3 3 AM EST 02/17/2023 1:09 PM EST us Zunilda Ignacio MD LAB BLOOD ORDERABLES Fin al Result [facility] [address] [place] [phone] documented in this encounter Visit Diagnoses Diagnosis Bacterial vaginitis- Primary Unspecified vaginitis and vulvovaginitis documented in this encounter Additional Health Concerns Assessment Noted Time PHQ-9 Depression Total Score: 3 04/29/19 23 11:36 AM EST documented as of this encounter Care Teams Dry Can Tender Relationship Specialty Start Date End Date Zunilda Ignacio MD [address] [place] [address] PCP - General Family Medicine 02/29/16 Benson Waters FNP [address] [place] [phone] Nurse Practitioner Family Medicine 01/23/23 documented as of this encounter
--- OUTSIDE RECORDS SUMMARY | 2024-11-02 12:07 | XMS_ITS | Encounter Summary ---
Author Organization [employer] Address [address] 7[address] [place] [address] Care Team Providers Care Cost Estimator Name Role Phone Zunilda Ignacio MD Primary Care Provider + Benson Waters Unavailable Unavailable Reason for Visit * Reason Onset Date Comments Nurse Triage 06/20/2024 Encounter Details Date Type Department Care Team ([facility] Contact Info) Description 06/20/2024 Telephone [facility] MEDICINE [address] [place] [address] Zunilda Ignacio MD [address] [place] [address] Nurse Triage Social History Tobacco Use Types [...] the past 12 months, has t he sharing.it, gas, oil or water [employer] threatened to shut off services in your [...] Info) Description 11/14/2024 11:00 AM EDT Nutrition [facility] DIABETES/NUTRITION [address] [place] [address] [place] [address] 11/21/2024 3:00 PM EDT Office Visit [facility] ADULT DENTAL [address] [place] [address] Debbie Moran 02/10/2025 1:00 PM EST Office Visit [facility] OPTOMETRY [address] [place] [address] Wiley, Lesley, OD [address] [place] [address] documented as of this encounter Visit Diagnoses Not on filedocumented in this encounter Additional Health Concerns Assessment Noted Time PHQ-9 Depression Total Score: 11 0716/2 024 10:25 AM EDT documented as of this encounter Care Teams Cost Estimator Relationship Specialty Start Date End Date Zunilda Ignacio MD [address] [place] [address] PCP - General Family Medicine 02/29/16 Benson Waters FNP [address] [place] [phone] Nurse Practitioner Family Medicine 01/23/23 documented as of this encounter
--- OUTSIDE RECORDS SUMMARY | 2024-11-02 12:07 | XMS_ITS | Encounter Summary ---
Author Organization [employer] Address [address] 7[address] [place] [address] Care Team Providers Care Communications Intern Name Role Phone Zunilda Ignacio MD Primary Care Provider + Benson Waters Unavailable Unavailable Reason for Visit * Reason Onset Date Comments Results 10/29/2024 Encounter Details Date Type Department Care Team ([facility] Contact Info) Description 10/29/2024 Results [facility]-Up [facility] MEDICINE [address] [place] [address] Zunilda Ignacio MD [address] [place] [address] Bacterial Vaginosis, Chlamydia/N. Gonorrhoeae RNA, TMA, Urogenitial, Pap Smear, Additional followed-up results: 3 Social History Tobacco Use Types Packs/Day Years [...] encounter Miscellaneous Notes * Telephone Encounter - Beatriz Tucker RN - 11/01/2024 3:36 PM EDT TC placed to pt. And advised of bloodwork results showing elevated LFTs, pt. Will return to lab to complete further orders (fasting). Pt. Agrees to abstain from alcohol/ recreational substances and will expect call when additional bloodwork results are in. * Result Encounter Note - Zunilda Ignacio MD - 10/29/2024 12:26 PM EDT Labs on 10/27/2024 showed mildly elevated LFTs compared to previous ones. Other labs are within normal limits. Please call patient and tell her that we need additional labs prior to next visit to see if there is any other cause for that, I suspect that it's related to weight gain/? Prediabetes, she needs to get blood work done and follow-up with me. Please tell her that as of last year CT scan of the abdomen had shown a normal liver so I will follow-up with her at next visit. Please remind her toavoid using recreational substances including alcohol and others. documented in this encounter Plan of Treatment Upcoming Encounters Date Type Department Care Team (Late st Contact Info) Description 11/14/2024 11:[address] [facility] DIABETES/NUTRITION [address] [place] [address] Misty Mtaa, RD [address] [place] [address] 11/21/2024 3:00 PM EDT Office Visit [facility] ADULT DENTAL [address] [place] [address] Debbie Moran 02/10/2025 1:00 PM EST Office Visit [facility] OPTOMETRY [address] [place], [place] [phone] Wiley, Lesley, OD [address] [place] [address] Scheduled Orders Name Type Priority Associated Diagnoses Orde r Schedule Gamma Glutamyl Transferase (GGT) Lab Routine Elevated LFTs Elevation of levels of liver transaminase levels Expected: 10/29/2024 (Approximate), Expires: 10/29/2025 HIV-1/2 Antigen and Antibodies, Fourth Generation, with Reflexes Lab Routine Elevated LFTs Anemia, unspecified type Expected: 10/29/2024 (Approximate), Expires: 10/29/2025 Hepatitis Panel, General Lab Routine Elevated LFTs Encounter for screening for human immunodeficiency virus (HIV) Expected: 10/29/2024 (Approximate), Expires: 10/29/2025 Syphilis Screen Lab Routine Elevated LFTs Expected: 10/29/2024 (Approximate), Expires: 10/29/2025 ZUNILDA Screen,IFA, with Reflex to Titer and Pattern Lab Routine Elevated LFTs Expected: 10/29/2024 (Approximate), Expires: 10/29/2025 Lipid Panel with Reflex to Direct LDL Lab Routine Elevated LFTs Expected: 10/29/2024 (Approximate), Expires: 10/29/2025 documented as of this encounter Visit Diagnoses Diagnosis Elevated LFTs- Primary Other abnormal blood chemistry Elevation of levels of liver transaminase levels Encounter for screening for human immunodeficiency virus (HIV) Anemia, unspecified type documented in this encounter Additional Health Concerns Assessment Noted Time PHQ-9 Depression Total Score: 9 08/25/19 25 11:54 AM EDT documented as of this encounter Care Teams Communications Intern Relationship Specialty Start Date End Date Zunilda Ignacio MD [address] [place] [address] PCP - General Family Medicine 02/29/16 Benson Waters FNP [address] [place] [address] Nurse Practitioner Family Medicine 01/23/23 documented as of this encounter
--- OUTSIDE RECORDS SUMMARY | 2024-11-02 12:07 | XMS_ITS | Clinical Summary ---
Author Organization [employer] Address [address] [facility] 7t [place] [address] Care Team Providers Care Lump Machine Operator Name Role Phone Zunilda Ignacio [...] develops hives or swelling again. Refer to bracelet former. Avoid contact with cats, consider moving to a building where animals are not allowed. Skin tag of female perineum 02/06/2023 Assessment & Plan (02/06/2023 10:35 AM EST): On perineum area, she will f/u with me in 4 weeks for skin tag removal HPV in female 02/06/2023 Assessment & Plan (08/24/2024 1:26 PM EDT): PAP smear done today, will fu results. We discussed re DOOR OPERATOR referral if test is POS, she agreed [...] get written evidence of Influenza in [facility] Methods Specialist about COVID vaccine booster at earliest convenience. [...] medication management. Any issues or concerns contact [facility]. All her questions were answered and I [...] me in 6 weeks. She agrees with [facility] Assessment & Plan (04/28/2022 12:59 PM EST): [...] me in 3 weeks. She agrees with [facility] Assessment & Plan (04/07/2022 4:10 [...] [facility] in 1 month. [facility] Recurrent major depressive episodes, moderate Assessment & [...] Encounters Date Type Department Care Team Description 10/29/2024 Results Follow-Up [facility] MEDICINE [address] [place] [address] Zunilda Ignacio MD Bacterial Vaginosis, Chlamydia/N. Gonorrhoeae RNA, TMA, Urogenitial, Pap Smear, Additional followed-up results: 3 10/19/2024 3:00 PM EDT Office Visit [facility] WALK-IN CENTER [address] [place] [address] Yordy Khanna MD Mild intermittent asthma with acute exacerbation (Primary Dx); Viral URI with cough 10/19/2024 Travel 10/13/2024 Telephone [facility] MEDICINE [address] [place] [address] Zunilda Ignacio MD Referral 09/30/2024 Travel 09/23/2024 Telephone [facility] MEDICINE [address] [place] [address] Zunilda Ignacio MD CHART PREP 08/24/2024 10:30 AM EDT Office Visit [facility] MEDICINE [address] [place] [address] Zunilda Ignacio MD 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); Left ovarian cyst; Encounter for cervical Pap smear with pelvic exam; Recurrent major depressive episodes, moderate (CMS/HCC); Class 2 obesity due to excess calories without serious comorbidity with body mass index (BMI) of 37.0 to 37.9 in adult; Dyspareunia, female; Dietary counseling; Exercise counseling 08/24/2024 Travel 08/23/2024 Telephone [facility] MEDICINE [address] [place], [place] [phone] Zunilda Ignacio MD chart prep 08/09/2024 Refill [facility] MEDICINE [address] [place], [place] [phone] Zunilda Ignacio MD from Last 3 Months [...] Info) Description 11/14/2024 11:00 AM EDT Nutrition [facility] DIABETES/NUTRITION [address] [place] [address] [place] [address] 11/21/2024 3:00 PM EDT Office Visit [facility] ADULT DENTAL [address] [place] [address] Debbie Moran 02/10/2025 1:00 PM EST Office Visit [facility] OPTOMETRY [address] [place] [address] Lesley Jama, OD [address] [place] [address] Health Maintenance Due Date Last Done Comments [...] Meningococcal Vaccine Aged Out 11/23/2008 No cecile chsaity eligible based on patient's age to complete [...] Procedure Name Priority Date/Time Associated Diagnosis Comments TSH W/REFLEX TO FT4 Routine 10/27/2024 1 1:08 AM EDT Class 2 obesity due to excess calories without serious comorbidity with body mass index (BMI) of 37.0 to 37.9 in adult COMPREHENSIVE METABOLIC PANEL Routine 10/27/2024 11:08 AM EDT Class 2 obesity due to excess calories without serious comorbidity with body mass index (BMI) of 37.0 to 37.9 in adult POCT INFLUENZA B (ID NOW RAPID MOLECULAR) [...] Recently Relevant to Health Maintenance Results * TSH with Reflex to Free T4 (10/27/2024 11:08 AM EDT) TSH reflex Free T4 0.79 0.32 - 4.0 uIU/mL [facility] Blood 10/27/2024 11:0 8 AM EDT 10/27/2024 1:28 PM EDT us Zunilda Ignacio MD LAB BLOOD ORDERABLES Fin al Result Performing Organization Address City/[facility]/ZIP Co de Phone Number [facility] [address] [place] [address] [phone] * (ABNORMAL) Comprehensive Metabolic Panel (10/27/2024 11:08 AM EDT) Sodium 140 135 - 145 mmol/L [facility] Potassium 3.7 3.3 - 5.1 mmol/L [facility] Chloride 109(H) 96 - 108 mmol/L [facility] Carbon Dioxide 21(L) 22 - 29 mmol/L [facility] Anion Gap 14 12 - 20 [facility] Urea Nitrogen (BUN) 13 9 - 16 mg/dL [facility] Creatinine, Serum 0.70 0.5 - 1.4 mg/dL [facility] Estimated Glomerular Filt Rate >60 [facility] Comment:Chronic Kidney Disea se: Estimated GFR < 60 mL/min/[id number] Kidney Disease: Estimated GFR < 15 mL/min/1.73m2 Glucose 92 60 - 115 mg/dL [facility] Calcium 9.2 8.4 - 10.2 mg/dL [facility] Bilirubin, Total 0.8 0.0 - 1.0 mg/dL [facility] Aspartate Amino Transferase 36(H) 5 - 31 U/L [facility] Alanine Aminotransferase 42(H) 0 - 31 U/L [facility] Total Protein 7.3 6.5 - 8.0 g/dL [facility] Albumin Level 4.7 3.5 - 5.0 g/dL [facility] Alkaline Phosphatase 70 39 - 117 U/L [facility] Blood Venous blood specimen / Unknown 10/27/2024 11:08 AM EDT 10/27/2024 1:28 PM EDT us Zunilda Ignacio MD LAB BLOOD ORDERABLES Fin al Result [facility] [address] [place] [address] [phone] * Influenza B (ID NOW Rapid Molecular) (10/19/2024 12:06 PM EDT) [facility] Influenza B Negative Negative, Indeterminate [facility] Swab 10/19/2024 12:0 6 PM EDT us Yordy Khanna MD POINT OF CARE TEST ENTER/EDIT OR DERABLES Final Result Performing Organization Address City/[facility]/ZIP Co de Phone Number [facility] [address] [place] [phone] * Influenza A (ID NOW Rapid Molecular) (10/19/2024 12:06 PM EDT) [facility] Influenza A Negative Negative, Indeterminate [facility] Swab 10/19/2024 12:0 6 PM EDT us Yordy Khanna MD POINT OF CARE TEST ENTER/EDIT OR DERABLES Final Result Performing Organization Address City/[facility]/ZIP Co de Phone Number [facility] [address] [place] [phone] * POCT Rapid COVID Ag (10/19/2024 12:06 PM EDT) [facility] Rapid COVID Ag Negative [facility] Swab 10/19/2024 12:0 6 PM EDT us Yordy Khanna MD POINT OF CARE TEST ENTER/EDIT OR DERABLES Final Result Performing Organization Address [facility]/ZIP Co de Phone Number [facility] [address] [place] [phone] * XR Chest 2 Views (10/19/2024 11:34 AM EDT) Anatomical Region Laterality Modality Chest Radiographic Soo ging 10/19/2024 11:3 4 AM EDT Narrative 10/19/2024 12:28 PM EDT [address] [address] XRay Report Signed Patient: Eleonora Tellez MR#: [id number] 2 : 1995 Acct:[id number] Age/Sex: 29 / F ADM Date: 10/19/24 Loc: [facility] Attending Dr: Yordy Khanna MD Ordering Physician: YORDY KHANNA MD Date of Service: 10/19/24 Procedure(s): XR chest 2V Accession Number(s): [id number] cc: YORDY KHANNA MD EXAMINATION: XR CHEST [...] 10/19/24 1225 DD/ 1134 TD/TT: 10/19/24 1222 Telecommunication Engineer: Procedure Note Donotuseinterpreter, Image - 10/19/[address] [address] XRay Report Signed Patient: Eleonora TellezMR#: [id number] 2 : 1995Acct:[id number] Age/Sex: 29 / FADM Date: 10/19/24 [facility]: Yordy Khanna MD Ordering Physician: YORDY KHANNA MD Date of Service: 10/19/24 Procedure(s): XR chest 2V Accession Number(s): [id number] cc: YORDY KHANNA MD EXAMINATION: XR CHEST [...] 10/19/24 1225 DD/ 1134 TD/TT: 10/19/24 1222 Telecommunication Engineer: us Yordy Khanna MD IMG XR PROCEDURES Final Result * Bacterial Vaginosis (08/24/2024 11:17 AM EDT) TRICHOMONAS VAGINALIS DETECTION BY PCR NOT DETECTED Not Detect [facility] BACTERIAL VAGINOSIS DETECTION BY PCR NEGATIVE Negative [facility] Comment:The BV organism targ [...] DETECTION BY PCR NOT DETECTED Not Detect [facility] Krystyna glab krusei PCR NOT DETECTED Not Detect [facility] Swab Vaginal structure / Unknown 08/24/2024 11:17 AM EDT 08/24/2024 4:01 PM EDT us Zunilda Ignacio MD LAB MICROBIOLOGY - GENER AL ORDERABLES Final Result [facility] [address] [place] [phone] * HPV High Risk with Reflex to Subtypes (08/24/2024 11:17 AM EDT) HPV High Risk Negative Negative [facility] HPV Genotype 16 Negative Negative [facility] HPV Genotype 18 Negative Negative [facility] Comment:HPV testing performe d at [facility] (CLIA#[id number]), [address] [place] [phone].Testing for HPV was performed using the Zina [...] MD LAB BLOOD ORDERABLES Fin al Result [facility] [address] [place] [phone] * Chlamydia/N. Gonorrhoeae RNA, TMA, Urogenitial (08/24/2024 11:17 AM EDT) CT PCR NOT DETECTED Not Detect. [facility] Comment:A not detected test [...] psychologicalconsequences. NG PCR NOT DETECTED Not Detect. [facility] Comment:A not detected test [...] MICROBIOLOGY - GENER AL ORDERABLES Final Result [facility] [address] [place] [phone] * Pap Smear (08/24/2024 11:17 AM EDT) Swab Cervical swab / Unknown 08/24/2024 11:17 AM EDT 08/25/2024 8:00 AM EDT Narrative [facility] - 08/29/2024 3:03 PM EDT ----- ------- Name: Eleonora Tellez Age/Sex: 29/F : 1995 Unit#: [id number] Attend Dr: Zunilda Ignacio MD Re08/24/24 Status: DEP [facility]: ----- ------- SPEC : [id number] RECD: 08/25/24 STATUS: ANGEL SIEGEL NUM: [id number] MARIZA: 08/24/24-[address] [facility] [address]: Zunilda Ignacio MD ENTERED: 08/25/24 SP TYPE: Pap Smr OTHR DR: ORDERED: Pap Smear Interpretation Satisfactory for [...] and HPV testing will be performed at [facility] (CLIA #[id number]), [address] [place] [address]. Testing for HPV was performed using the Zina MENDEZ [id number] system. The presence of HPV [...] detected. All professional services are performed by [facility] ([address] [place] [address], [place] [address]; ; CLIA #[id number]). The PAP Test is a screening procedure with the inherent possibility of both false negative and false positive results. Results should be interpreted in the context of historic and current clinical findings. Reliability of the PAP Test is enhanced by performing the test on a regular repetitive basis. ----- ------- Signed (signature on file) MAX Jules ([facility]) 08/29/24 1503 ----- ------- END OF REPORT us Zunilda Ignacio MD LAB CYTOLOGY ORDERABLES Final Result [facility] [address] [place] [phone] * Lipid Panel with Reflex to Direct LDL (02/17/2023 11:33 AM EST) Triglycerides 50 <150 mg/dL [facility] Comment:Desirable Triglyceri de: less than 150 mg/dLBorderline High Triglyceride 150-199 mg/dLHigh Triglyceride: 200-499 mg/dLVery High Triglyceride: greater than or equal to 5OO mg/dL Cholesterol 136 <200 mg/dL [facility] Comment:Desirable Cholestero l: less than 200 mg/dLBorderline High Cholesterol: 200-239 mg/dLHigh Cholesterol: greater than 239 mg/dL LDL Cholesterol Calculated 69 <100 mg/dL [facility] Comment:Desirable LDL: less than 100 mg/dLNear Optimal/Above Optimal LDL: 110- 129 mg/dLBorderline High LDL: 130-159 mg/dLHigh LDL: 160-189 mg/dLVery High LDL: greater than or equal to 190 mg/dL HDL Cholesterol 57 >40 mg/dL [facility] Comment:Desirable HDL: great er than 40 mg/dL Note: This HDL assay may give artificially low results in patients with liver disease. Blood 02/17/2023 11:3 3 AM EST 02/17/2023 1:09 PM EST Zunilda Ignacio MD LAB BLOOD ORDERABLES Fin al Result Performing Organization Address [facility] de Phone Number [facility] [address] [place] [phone] * Hepatitis Panel, General (02/17/2023 11:33 AM EST) Hepatitis A IgM Nonreactive Nonreactive [facility] Comment:IgM antibodies to ONEILL V not detected; does not exclude earlyacute or recovered HAV infection. ~Hepatitis B Surface Antibody REACTIVE Nonreactive [facility] Comment:REACTIVE: > 11.99 mI U/mL Hepatitis B Core Antibody Nonreactive Nonreactive [facility] Hepatitis C Antibody Nonreactive Nonreactive [facility] Comment:Antibodies to HCV no t detected; does not exclude early acuteHCV infection. Hepatitis B Surface Ag Negative Negative [facility] Blood 02/17/2023 11:3 3 AM EST 02/17/2023 1:09 PM EST Zunilda Ignacio MD LAB BLOOD ORDERABLES Fin al Result Performing Organization Address [facility] de Phone Number [facility] [address] [place] [phone] * HIV-1/2 Antigen and Antibodies, Fourth Generation, with Reflexes (02/17/2023 11:33 AM EST) HIV AB/AG Nonreactive Nonreactive [facility] Comment:HIV-1 p24 Ag and/or HIV-1/HIV-2 Ab not detected.A test result that is nonreactive does not exclude thepossibility of exposure to or infection with HIV-1 and/orHIV-2. Nonreactive results in this assay for individualswith prior exposure to HIV-1 and/or HIV-2 may be due toantigen and antibody levels that are below the limit ofdetection of this assay.The Uni2 HIV Ag/Ab Combo assay result andsupplemental assay results should be interpreted inconjunction with the patient's clinical presentation,history and other laboratory results. If the results areinconsistent with clinical evidence, additional testing issuggested to confirm the result. Blood Venous blood specimen / Unknown 02/17/2023 11:33 AM EST 02/17/2023 1:09 PM EST us Zunilda Ignacio MD LAB BLOOD ORDERABLES Fin al Result [facility] [address] [place] [phone] from Last 3 Months or Most Recently Relevant to [place] [id number] [place] [address] [facility] Care Teams Lump Machine Operator Relationship Specialty Start Date End Date Zunilda Ignacio MD [address] [place] [phone] PCP - General Family Medicine 02/29/16 Benson Waters FNP [address] [place] [address] Nurse Practitioner Family Medicine 01/23/23
[2024-11-02 12:54] LABS: Cholesterol 142 mg/dL (<200); Gamma Glutamyl Transpeptidase 25 U/L (7-33); HDL Cholesterol 48 mg/dL (>40); Triglycerides 61 mg/dL (<150)
[2024-11-02 13:13] LABS: HBS Num1 29.48 mIU/mL (0-7.99); HBc Num1 0.05 S/CO (0.00-0.79); HBsAGNum1 0.41 S/CO (0.00-0.99); HIV Num 1 0.04 S/CO (0.00-0.99); Hepatitis A Antibody IgM 0.22 Index (0-0.79); Hepatitis B Surface Antigen Negative (Negative); ~HepC Num1 0.11 S/CO (0.00-0.79); ~Hepatitis A Antibody IgM Nonreactive (Nonreactive); ~Hepatitis B Surface Antibody REACTIVE (Nonreactive); ~Hepatitis C Antibody Nonreactive (Nonreactive)
[2024-11-02 13:14] LABS: Syphilis Screen Nonreactive (Nonreactive)
[2024-11-02 13:16] LABS: Reflex LDLD? No
[2024-11-07 22:09] LABS: Anti Nuclear Antibody Pattern Nuclear, Speckled; Anti Nuclear Antibody Screen POSITIVE (NEGATIVE); Anti Nuclear Antibody Titer 1:40 titer
== END 2024-11-02 10:02 | disposition home or self-care (01) ==
LOC: HO.HHCL 10:01
PROVIDERS: PCP Internal Medicine; Visit Provider Internal Medicine
DX: Z01.84 Encounter for antibody response examination (principal); Z11.4 Encounter for screening for human immunodeficiency virus [HIV]; Z11.59 Encounter for screening for other viral diseases; R79.89 Other specified abnormal findings of blood chemistry; R74.01 Elevation of levels of liver transaminase levels; D64.9 Anemia, unspecified
CPT/HCPCS: 36415; 80061; 82977; 86038; 86039; 86704; 86706; 86709; 86780; 86803; 87340; 87389

== ENCOUNTER 2024-11-02 16:45 | Emergency (ER) | payer MEDICAID, SELFPAY ==
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
[2024-11-02 17:27] VITALS: BP 117/77; BP 97/55; PULSE 80; PULSE 83; RESP 20; TEMP 36.9; O2SAT 98; O2SAT 99; BMI 34.0
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
[2024-11-02 19:46] VITALS: BP 97/55; PULSE 83; RESP 20; TEMP 36.9; O2SAT 98
== END 2024-11-02 19:46 | disposition home or self-care (01) ==
PROVIDERS: Emergency Provider Emergency Medicine Emergency Medical Services; PCP Internal Medicine
DX: S83.92XA Sprain of unspecified site of left knee, initial encounter (principal); V43.52XA Car driver injured in collision with other type car in traffic accident, initial encounter; Y93.9 Activity, unspecified; Y92.9 Unspecified place or not applicable; Y99.9 Unspecified external cause status; M25.562 Pain in left knee
CPT/HCPCS: 73564; 96372; 99283; 99284; J1885

== ENCOUNTER → 2024-11-02 17:29 | Outpatient (BNV) | payer MEDICAID, SELFPAY | PROVIDERS: Visit Provider Radiology Diagnostic Radiology | DX: M25.562 Pain in left knee (principal) | CPT/HCPCS: 73564 ==

== ENCOUNTER 2024-12-09 15:36 | Outpatient (REF) | payer MEDICAID, SELFPAY ==
--- NOTE | ~2024-12-09 | US_ITS ---
EXAMINATION: US PELVIS CLINICAL INFORMATION: Left ovarian cyst COMPARISON: Previous CT of the abdomen and pelvis most recent June 2024 going back to 2021 , 2020 and 2018 and pelvic ultrasound September 2020. TECHNIQUE: Ultrasound of the pelvis is performed using both transabdominal and transvaginal transducers along with Doppler. Transvaginal imaging is performed due to inadequate visualization transabdominally. FINDINGS: Uterus: The uterus is anteverted and measures 6.6 x 3.4 x 4.2 cm. The double wall endometrial thickness is 11 mm. No endometrial fluid or mass. The uterus is smooth in contour and has normal myometrial echogenicity. 1.9 x 1.4 x 1.8 cm subserosal left upper uterine body fibroid. Adnexa: Both ovaries are visualized. There is normal color flow to the adnexa. There is no ovarian torsion. There is no pelvic ascites or fluid collection. Right ovary measures 3.5 x 3 x 2.7 cm. 1.8 x 1.8 x 2.1 cm simple right ovarian cyst. Left ovary measures 5.3 x 4.8 x 4.4 cm. 4.3 x 3.6 x 3.1 cm left ovarian cyst. This is minimally complex with slightly thickened irregular wall. This is not appreciably changed in size from prior abdominal pelvic CT June 2024 A left ovarian cyst can is seen on multiple prior exams going back to 2018, 2020 and 2021 . Differential would include complex cyst and endometrioma. US/US pelvic and transvaginal IMPRESSION: Small uterine fibroid. Normal-appearing right ovary with small 2 cm simple right ovarian cyst. Enlarged left ovary and slightly complex left ovarian cyst measuring up to 4.3 cm. This could represent an endometrioma. Consider short-term follow-up pelvic ultrasound versus pelvic MRI. Electronically signed by: Kaur Ferris MD 12/09/2024 05:17 PM EDT
== END 2024-12-09 15:37 | disposition home or self-care (01) ==
LOC: HO.US 15:36
PROVIDERS: PCP Internal Medicine; Visit Provider Internal Medicine
DX: N83.202 Unspecified ovarian cyst, left side (principal)
CPT/HCPCS: 76830; 76856

== ENCOUNTER → 2024-12-09 15:37 | Outpatient (BNV) | payer MEDICAID, SELFPAY | PROVIDERS: PCP Internal Medicine; Visit Provider Radiology Diagnostic Radiology | DX: N83.291 Other ovarian cyst, right side (principal); N83.292 Other ovarian cyst, left side | CPT/HCPCS: 76830; 76856 ==